=== PATIENT | female | born 1940 | race African-American/Black ===

== ENCOUNTER 2017-10-10 06:07 | Inpatient (IN) | payer OTHER ==
[2017-10-07 09:07] VITALS: BMI 22.3
[2017-10-10] MEDS ORDERED: DEXAMETHASONE SOD PHOSPHATE 4 MG/1 ML VIAL ONE ×2 (07:20→11:51)
[2017-10-10] MEDS ORDERED: ONDANSETRON 4 MG/2 ML VIAL ONE ×2 (07:20→11:51)
[2017-10-10] MEDS ORDERED: LIDOCAINE HCL/PF 2% SDV 5ML VIAL ONE ×2 (07:20→11:51)
[2017-10-10] MEDS ORDERED: VANCOMYCIN 1,000 MG VIAL (RESTRICTED TO ID ONLY) ONE ×2 (07:22→10:17)
[2017-10-10] MEDS ORDERED: THROMBIN (BOVINE) 5,000 UNIT VIAL TP ONE (07:22)
[2017-10-10] MEDS ORDERED: HEPARIN NA (PORCINE) 5,000 UNITS/ML 1ML VIAL ONE ×3 (07:22→07:28)
[2017-10-10] MEDS ORDERED: PROPOFOL 20 ML ONE ×11 (07:23→13:47)
[2017-10-10] MEDS ORDERED: ROCURONIUM BROMIDE 50 MG/5 ML VIAL ONE ×2 (07:23→11:51)
[2017-10-10] MEDS ORDERED: SUCCINYLCHOLINE CHLORIDE 200 MG/10 ML VIAL ONE ×2 (07:24→11:50)
[2017-10-10] MEDS ORDERED: fentaNYL CITRATE 250 MCG/5 ML VIAL ONE ×2 (07:24→09:16)
[2017-10-10] MEDS ORDERED: MIDAZOLAM HCL 2 MG/2 ML SINGLE DOSE VIAL ONE ×3 (07:25→09:20)
[2017-10-10] MEDS ORDERED: PHENYLEPHRINE HCL 10 MG/1 ML SINGLE DOSE VIAL ONE (07:26)
[2017-10-10] MEDS ORDERED: ePHEDrine SULFATE 50 MG/1 ML AMPULE ONE ×3 (07:27→17:37)
[2017-10-10] MEDS ORDERED: SODIUM CHLORIDE 0.9% P/F 10 ML VIAL IJ ONE (07:27)
[2017-10-10] MEDS ORDERED: SEVOFLURANE 250 ML BTL ONE (07:30)
[2017-10-10] MEDS ORDERED: DESFLURANE GAS 240 ML BOTTLE IH ONE (07:31)
[2017-10-10] MEDS ORDERED: oxyCODONE HCL 5 MG TABLET PO PRN ×2 (07:49)
[2017-10-10] MEDS ORDERED: ONDANSETRON 4 MG/2 ML VIAL IVPUSH PRN (07:49)
[2017-10-10] MEDS ORDERED: LACTATED RINGERS SOLUTION 1,000 ML IV SCH (08:00)
[2017-10-10] MEDS ORDERED: ceFAZolin SODIUM 1 GM VIAL IVPB ONE (09:49)
[2017-10-10] MEDS ORDERED: TRANEXAMIC ACID 1000 MG/10 ML VIAL ONE (10:14)
[2017-10-10] MEDS ORDERED: ceFAZolin SODIUM 1 GM VIAL ONE (10:17)
[2017-10-10] MEDS ORDERED: NEOSTIGMINE METHYLSULFATE 0.5 MG/ML - 10 ML MDV ONE (12:12)
[2017-10-10] MEDS ORDERED: KETOROLAC TROMETHAMINE 30 MG/1 ML VIAL ONE (14:31)
[2017-10-10] MEDS ORDERED: SODIUM CHLORIDE 1,000 ML IV SCH (15:15)
[2017-10-10] MEDS ORDERED: DEXTROSE 5%-0.45% SALINE 1,000 ML IV SCH (15:15)
[2017-10-10] MEDS ORDERED: HYDROmorphone *PCA* 6MG/30ML DISP.SYRIN PCA ONE (15:25)
--- NOTE | 2017-10-10 15:37 | HP ---
Addendum entered and electronically signed by Yury Kaur, RESIDENT 10/10 17:14: Spoke to family of patient after completing H&P. Patient's daughter states that patient has been having back pain radiating to her hip for over 2 years. States that she never had any decreased sensation, numbness tingling, or changes to urinary habits/bowel movements. Previous imaging she received showed "squeezing of spinal cord". Patient does not drink, does not smoke, and never has. Reported past medical problems are high blood pressure, high cholesterol, and high blood sugar. The only medications the daughter knew were fosinopril/HCTZ, pravastatin, and gabapentin. Daughter denies any allergies of the patient. Original Note: CHIEF COMPLAINT: s/p spinal fusion PCP: Dr. Krystle Whiting HISTORY OF PRESENT ILLNESS: 77 year old female with a past medical history of arthropathy, BPPV, lumbar disc herniation, constipation, HLD, HTN, hemorrhoids, anemia, CKD, cholelithiasis, polycystic kidneys, hypercalcemia, came to the hospital for a T12-S1 spinal fusion surgery performed by Dr. Dajuan Medrano. Patient is s/p surgery, and is not awake to obtain full history. Patient has no previous visits to this hospital. During the surgery, patient received 3500cc fluids and had EBL of 1100. Patient made 400cc urine during the surgery. Recent Travel: unknown at this time PAST MEDICAL HISTORY: arthropathy, BPPV, lumbar disc herniation, constipation, HLD, HTN, hemorrhoids, anemia, CKD, cholelithiasis, polycystic kidneys, hypercalcemia PAST SURGICAL HISTORY: knee arthroscopy Social History: Smoking: unknown at this time Alcohol: unknown at this time Drugs: unknown at this time Family History: Allergies No Known Drug Allergies Allergy (Verified 10/10/17 06:58) HOME MEDICATIONS: Home Medications Medication Instructions Recorded Acetaminophen [Tylenol] 650 mg PO PRN PRN 10/07/17 Fosinopril/Hydrochlorothiazide 1 each PO DAILY 10/07/17 [Fosinopril-Hctz 10-12.5 mg Tab] Gabapentin 600 mg PO TID 10/07/17 Pravastatin Sodium [Pravachol (Nf)] 40 mg PO HS 10/07/17 REVIEW OF SYSTEMS - UNABLE TO ASSESS DUE TO MENTAL STATUS CONSTITUTIONAL: Absent: fever, chills, diaphoresis, generalized weakness, malaise, loss of appetite, weight change HEENT: Absent: rhinorrhea, nasal congestion, throat pain, throat swelling, difficulty swallowing, mouth swelling, ear pain, eye pain, visual changes CARDIOVASCULAR: Absent: chest pain, syncope, palpitations, irregular heart rate, lightheadedness , peripheral edema RESPIRATORY: Absent: cough, shortness of breath, dyspnea with exertion, orthopnea, wheezing, stridor, hemoptysis GASTROINTESTINAL: Absent: abdominal pain, abdominal distension, nausea, vomiting, diarrhea, constipation, melena, hematochezia GENITOURINARY: Absent: dysuria, frequency, urgency, hesitancy, hematuria, flank pain, genital pain MUSCULOSKELETAL: Absent: myalgia, arthralgia, joint swelling, back pain, neck pain SKIN: Absent: rash, itching, pallor HEMATOLOGIC/IMMUNOLOGIC: Absent: easy bleeding, easy bruising, lymphadenopathy, frequent infections ENDOCRINE: Absent: unexplained weight gain, unexplained weight loss, heat intolerance, cold intolerance NEUROLOGIC: Absent: headache, focal weakness or paresthesias, dizziness, unsteady gait, seizure, mental status changes, bladder or bowel incontinence PSYCHIATRIC: Absent: anxiety, depression, suicidal or homicidal ideation, hallucinations. PHYSICAL EXAMINATION Vital Signs - 24 hr 10/10/17 10/10/17 06:55 06:56 Temperature 99.0 F Pulse Rate 92 H Respiratory 18 Rate Blood Pressure 139/92 O2 Sat by Pulse 98 Oximetry (%) GENERAL: Not awake, alert, or oriented HEAD: Normal with no signs of trauma. EYES: Pupils equal, round, minimally responsive to light, unable to assess eye movements ENT: moist membranes NECK: No JVD LUNGS: Coarse breath sounds bilaterally, good airflow HEART: RRR with some spurts of tachycardia to 95-100bpm, no murmurs appreciated ABDOMEN: soft, nontender, BS present MUSCULOSKELETAL: unable to assess UPPER EXTREMITIES: 2+ pulses, No peripheral edema. LOWER EXTREMITIES: 2+ pulses, warm, well-perfused. No peripheral edema. NEUROLOGICAL: reflexes 2/5 upper extremities, 0/5 lower extremities : Beltran in place collecting clear, yellow urine SKIN: Large dressing applied to the mid-back, non-bloody, drain in place producing minimal serosanguinous drainage Laboratory Results - last 24 hr 10/10/17 10/10/17 07:10 07:30 Blood Type A POSITIVE A POSITIVE Antibody Screen Negative Home Medication List Medication Instructions Recorded Confirmed Type Acetaminophen [Tylenol] 650 mg PO PRN PRN 10/07/17 10/07/17 History Fosinopril/Hydrochlorothiazide 1 each PO DAILY 10/07/17 10/10/17 History [Fosinopril-Hctz 10-12.5 mg Tab] Gabapentin 600 mg PO TID 10/07/17 10/10/17 History Pravastatin Sodium [Pravachol (Nf)] 40 mg PO HS 10/07/17 10/10/17 History Active Medications Generic Name Dose Route Start Last Admin Trade Name Freq PRN Reason Stop Dose Admin Acetaminophen 1,000 mg 10/10/17 16:03 Ofirmev Injection - IVPB 10/10/17 16:04 ONCE ONE Atorvastatin Calcium 10 mg 10/10/17 22:00 Lipitor - PO HS [facility] Chlorhexidine Gluconate 1 applic 10/10/17 22:00 Hibiclens For Decolonization - TP [facility] Chlorhexidine Gluconate 1 applic 10/10/17 22:00 Hibiclens For Decolonization - TP [facility] Fentanyl 50 mcg 10/10/17 07:49 Sublimaze Injection - IVPUSH [id number] PRN PAIN-PACU ORDER X 4 DOSES ONLY Gabapentin 600 mg 10/10/17 22:00 Neurontin - PO TID ERICK Hydrochlorothiazide 12.5 mg 10/11/17 10:00 Hctz - PO DAILY ERICK Hydromorphone HCl 6 mg 10/10/17 15:15 Dilaudid Cell Reliner - PHOTO MASK INSPECTOR 10/17/17 15:06 PHOTO MASK INSPECTOR ERICK Protocol Lactated Ringer's 1,000 mls @ 75 mls/hr 10/10/17 08:00 Lactated Ringers Solution IV ASDIR [facility] Vancomycin HCl 1,000 mg/ 250 mls @ 166.667 mls/hr 10/10/17 22:00 Dextrose IVPB 10/10/17 23:29 ONCE ONE Protocol Cefazolin Sodium 1 gm in 50 mls @ 100 mls/hr 10/10/17 23:00 Ancef 1 Gm Premixed Ivpb - IVPB 10/11/17 02:29 Q8H-IV ERICK Sodium Chloride 1,000 mls @ 100 mls/hr 10/10/17 15:15 Normal Saline - IV ASDIR ERICK Lisinopril 10 mg 10/11/17 10:00 Prinivil PO DAILY ERICK Mupirocin 1 applic 10/10/17 22:00 Bactroban Ointment (For Decolonization) - NS 10/15/17 21:59 BID ERICK Mupirocin 1 applic 10/10/17 22:00 Bactroban Ointment (For Decolonization) - NS 10/15/17 21:59 BID ERICK Ondansetron HCl 4 mg 10/10/17 07:49 Zofran Injection IVPUSH Q6H PRN NAUSEA AND/OR VOMITING Oxycodone HCl 10 mg 10/10/17 07:49 Roxicodone - PO 10/11/17 07:48 Q4H PRN PAIN LEVEL 6-10 Oxycodone HCl 5 mg 10/10/17 07:49 Roxicodone - PO 10/11/17 07:48 Q4H PRN PAIN LEVEL 1-5 ASSESSMENT/PLAN: 77 year old female with a pmh of arthropathy, BPPV, lumbar disc herniation, constipation, HLD, HTN, hemorrhoids, anemia, CKD, cholelithiasis, polycystic kidneys, hypercalcemia is admitted to the hospital after fusion of T12-S1 vertebrae #Spinal fusion T12-S1: POD1 -ICU admission -neurochecks Q2h -pt bolused with 2 500cc NS -continue normal saline @ 100cc/hr -NPO for now -Dr. Benavides -monitor drainage output -pain control -encourage incentive spirometry #Hypertension: currently normal BP, but likely hypotensive for patient -hold BP meds for now - can give when BP increases -pt on HCTZ 12.5 and Fosinopril at home (can sub with lisinopril 10) #Hyperlipidemia: stable -continue atorvastatin 10 HS if able to swallow #FEN -continue fluids @ 100cc/hr NS -replete electrolytes in AM -NPO for now #Prophylaxis -SCDs #Disposition -Admit to ICU for close neuro and vitals monitoring Visit type - Emergency Visit Emergency Visit: No - New Patient This patient is new to me today: Yes Date on this admission: 10/10/17 - Critical Care Critical Care patient: Yes Total Critical Care Time (in minutes): 35 Critical Care Statement: The care of this patient involved high complexity decision making to prevent further life threatening deterioration of the patient 's condition and/or to evaluate & treat vital organ system(s) failure or risk of failure. Hospitalist Screening - Colonoscopy Questionnaire Colonoscopy Questionnaire: Colonoscopy Questionnaire - Patient: 50 - 75 years old and never had a screening colonoscopy: Unknown History of colon or rectal polyps, or CA: Unknown History of IBD, Crohn's disease or UC: Unknown History of abdominal radiation therapy as a child: Unknown - Relative: 1 with colon or rectal CA, or polyps at age 60 or younger: Unknown Colon or rectal CA diagnosed at age 45 or younger: Unknown Multiple relatives with colon or rectal CA: Unknown - Outcome: Screening Result: Negative Screen
--- NOTE | 2017-10-10 15:42 | PN ---
Teaching Attending Note Name of Resident: Yury Kaur ATTENDING PHYSICIAN STATEMENT I saw and evaluated the patient. I reviewed the resident's note and discussed the case with the resident. I agree with the resident's findings and plan as documented. CC: s/p decompression and fusion T12-S1. HPI: unable to obtain hx form pt as she is still under anesthesia effect. Mrs. Guillen is a 77 y/o lady with h/o HTN, CKD ( per pre-op H&P) , neuropathy, polycystic kidneys, constipation , hemorrhoids, herniated disks, and other medical problems who presented this am for decompresion of T12-S1. during surgery she had 1100 cc blood loss, received IVF and blood . after transfer to Recovery she became hypotensive and received 2 boluses of 500 cc. reviewing her pre-op labs , her HB was 13 and Cr 0.7. pre-op EKG with NSR, no ST or TW changes, but poor R progression OBJECTIVE: BP : 100/50 . HR 80s . Sat 97 %. sleeping , snoring, NC on . no facial droop. MMM. round equal pupils, sluggish reaction to light . CV: RRR, no MRG , no JVD Lungs: CTAB Abd: absent BS, ND, NT. Ext: no edema or erythema , 2+ Dp , 2+ RP. MS: surgical dressing on T andL spine , with an empty drain Neuro: limited exam. pupils are round , equal , with sluggish reaction to light. no facial droop. reflexes 2+ biceps , 1+ knee jerk b/l . no foot drop. ASSESSMENT AND PLAN: Mrs. Guillen is a 77 y/o lady with h/o HTN, CKD , neuropathy,polycystic kidneys , constipation , hemorrhoids, herniated disks, and other medical problems who presented for decompresion of T12-S1. 1- S/P decompression and fusion of T12-S1. - ICU admission - MARYAM drain management per sx - pain control with dilaudid SYSTEM SALES CONSULTANT ( 0.2 mg q 6 min ) , and oxycodone - No heparin products for now , until cleared by sx - Evaluate LE neuro exam when awake . - Abx per surgery 2- Hypotension : likely due to blood loss during procedure and anesthesia . BP improved now after boluses - hold anti-hypertensive meds - IVF. - check HB stat . transfuse as needed 3- Acute blood loss during sx of 1100 cc - check stat HB - transfuse as needed - repeat HB in 6 hrs 4- H/o CKD ( per pre-op H&P) : pre-op cr 0.7. - will check Cr tomorrow in light of hypotension 5- DVT px : Scds for now
--- NOTE | 2017-10-10 16:10 | HP ---
CHIEF COMPLAINT: post op day 0 PCP: Dr Yury Hernandez [phone] ext [phone] HISTORY OF PRESENT ILLNESS: This is a 77 yo F with PMH of chronic back pain, pacemaker, HTN, HLD, CKD ( normal creat pre op labs 15/0.7), PCKD (PCP states is just a few cysts), hemorrhoids and BPVertigo, who presents for spinal surgery, currently POD0 s/p L1-S1 Posterior Lumbar interbody fusion. Per surgical PA, surgery was uncomplicated and patient is to be kept off a/c. Patient is still unconscious from anesthesia. Recent Travel: none noted PAST MEDICAL HISTORY: as above PAST SURGICAL HISTORY: R knee arthroscopy Social History: lives with spouse Smoking: never Alcohol: social Drugs: never Family History: unknown Allergies No Known Drug Allergies Allergy (Verified 10/10/17 06:58) HOME MEDICATIONS: Home Medications Medication Instructions Recorded Acetaminophen [Tylenol] 650 mg PO PRN PRN 10/07/17 Fosinopril/Hydrochlorothiazide 1 each PO DAILY 10/07/17 [Fosinopril-Hctz 10-12.5 mg Tab] Gabapentin 600 mg PO TID 10/07/17 Pravastatin Sodium [Pravachol (Nf)] 40 mg PO HS 10/07/17 REVIEW OF SYSTEMS unable to obtain PHYSICAL EXAMINATION Vital Signs - 24 hr 10/10/17 10/10/17 10/10/17 06:55 06:56 14:57 Temperature 99.0 F 98.3 F Pulse Rate 92 H 73 Respiratory 18 18 Rate Blood Pressure 139/92 112/73 O2 Sat by Pulse 98 99 Oximetry (%) 10/10/17 10/10/17 10/10/17 15:10 15:25 15:40 Temperature Pulse Rate 92 H 90 92 H Respiratory 20 18 18 Rate Blood Pressure 98/52 100/60 91/58 O2 Sat by Pulse 100 100 100 Oximetry (%) 10/10/17 15:55 Temperature Pulse Rate 90 Respiratory 20 Rate Blood Pressure 94/57 O2 Sat by Pulse 100 Oximetry (%) GENERAL: asleep HEAD: Normal with no signs of trauma. EYES: Pupils equal, round and reactive to light, sclera anicteric, conjunctiva clear. EARS, NOSE, THROAT: Moist mucous membranes. NECK: supple without lymphadenopathy, JVD, or masses. LUNGS: Breath sounds equal, clear to auscultation bilaterally. HEART: Regular rate and rhythm, normal S1 and S2 grade 2 systolic murmur best heard at apex ABDOMEN: Soft, not distended, globally reduced bowel sounds, no masses. MUSCULOSKELETAL: No bony deformities UPPER EXTREMITIES: 2+ pulses, warm, well-perfused. No peripheral edema. LOWER EXTREMITIES: 2+ pulses, warm, well-perfused. No peripheral edema. NEUROLOGICAL: unable to assess PSYCHIATRIC: unable to assess SKIN: Warm, dry Laboratory Results - last 24 hr 10/10/17 10/10/17 07:10 07:30 Blood Type A POSITIVE A POSITIVE Antibody Screen Negative ASSESSMENT/PLAN: This is a 77 yo F with PMH of chronic back pain, pacemaker, HTN, HLD, CKD ( normal creat pre op labs 15/0.7), PCKD (PCP states is just a few cysts), hemorrhoids and BPVertigo, who presents for spinal surgery POD0 s/p L1-S1 Posterior Lumbar interbody fusion. -ICU monitoring -Neuro checks q2 h -strict I /O, MARYAM output -oxicodone 10, 5 PRN for pain -resume gabapentin -cefazolin, vanco x 2 doses -zofran prn nausea -NS @ 100 -hold all a/c -f/u post op labs HTN -hold lisinopril 20 as BP low post op HLD -pravastatin 40 hs hemorrhoids -resume proctozone cream CKD -creat 0.7 pre op, f/u bmp Diet NPO, advanceper surgery SCD's, anticipate feeding soon Dispo: ICU Problem List - Problem (1) HTN (hypertension) Code(s): I10 - ESSENTIAL (PRIMARY) HYPERTENSION (2) HLD (hyperlipidemia) Code(s): E78.5 - HYPERLIPIDEMIA, UNSPECIFIED (3) Back pain Code(s): M54.9 - DORSALGIA, UNSPECIFIED (4) Hemorrhoid Code(s): K64.9 - UNSPECIFIED HEMORRHOIDS (5) CKD (chronic kidney disease) Code(s): N18.9 - CHRONIC KIDNEY DISEASE, UNSPECIFIED (6) Benign positional vertigo Code(s): H81.10 - BENIGN PAROXYSMAL VERTIGO, UNSPECIFIED EAR Visit type - Emergency Visit Emergency Visit: No - New Patient This patient is new to me today: Yes Date on this admission: 10/10/17 - Critical Care Critical Care patient: Yes Total Critical Care Time (in minutes): 35 Critical Care Statement: The care of this patient involved high complexity decision making to prevent further life threatening deterioration of the patient 's condition and/or to evaluate & treat vital organ system(s) failure or risk of failure.
[2017-10-10 16:15] LABS: BASO % 0.3 % (0-2.0); HEMATOCRIT 31.9 % (32.4-45.2); HEMOGLOBIN 10.4 GM/dL (10.7-15.3); LYMPH % 6.6 % (8-40); MCHC 32.5 g/dl (32.0-36.0); MONO % 1.4 % (3.8-10.2); NEUT % 91.7 % (42.8-82.8); PLATELET COUNT 152 K/MM3 (134-434); RBC 3.58 M/mm3 (3.60-5.2); RDW 15.7 % (11.6-15.6); WHITE BLOOD COUNT 10.4 K/mm3 (4.0-10.0)
[2017-10-10] MEDS ORDERED: diazePAM 2 MG TABLET PO PRN (16:23)
--- NOTE | 2017-10-10 16:28 | OP ---
Operative Note - Note: Operative Date: 10/10/17 Pre-Operative Diagnosis: spinal stenosis Operation: T12-S1 posterior decompression/laminecotmy with interbody fusion L4/ L5 and L5/S1 Surgeon: Dajuan Medrano Cleaner Laboratory Equipment: Judy Ray Anesthesiologist/CHAIN PULLER: Karan Dobbs Anesthesia: General Estimated Blood Loss (mls): 1,100 Drains, Volume Out (mls): 400 (ayoub) Blood Volume Replaced (mls): 450 (cell saver) Fluid Volume Replaced (mls): 3,500 Operative Report Dictated: Yes
[2017-10-10] MEDS: HYDROmorphone *PCA* 6MG/30ML DISP.SYRIN PCA SCH (16:35)
[2017-10-10 16:49] LABS: ANION GAP 9 (8-16); BLOOD UREA NITROGEN 17 mg/dL (7-18); CALCIUM 7.3 mg/dL (8.5-10.1); CHLORIDE 108 mmol/L (98-107); CO2 26 mmol/L (21-32); CREATININE 0.6 mg/dL (0.55-1.02); GLUCOSE,RANDOM 192 mg/dL (74-106); POTASSIUM 3.2 mmol/L (3.5-5.1); SODIUM 143 mmol/L (136-145)
[2017-10-10] MEDS ORDERED: ACETAMINOPHEN 1000 MG/100 ML VIAL (NON FORMULARY) IVPB ONE (18:00)
[2017-10-10] MEDS ORDERED: POTASSIUM CHLORIDE ORAL LIQUID 20 MEQ/15 ML PO ONE (18:00)
--- NOTE | 2017-10-10 21:24 | CONSULT ---
Consult Consult Specialty:: Pulm/CCM Reason for Consultation:: Herniated disc s/p T12-S1 spinal fusion - History of Present Illness Chief Complaint: back surgical site discomfort History of Present Illness: 77 yo F with PMH of chronic back pain, HTN,HLD, CKD, Polycystic kidney disease, hemorrhoids and Vertigo who is admitted with spinal stenosis and now transferred to ICU s/p T12-S1 posterior decompression, laminectomy with fusion and cage placement. In the OR EBL 1100cc, $50 cc returned via cell saver, IVF 3500cc, UOP 400cc. In ICU pt rec'd lethargic , oriented x3 and appropiate and receiving 1U PRBC. BP 121/62, HR 100, O2 sat 100% on 3L NC O2. Mid back incision dry and intact. hemovac x1 with small amount bloody fluid. On exam JORGE with no c/o numbness and tingling in lower extremities. Dilaudid FUSE CUP EXPANDER in place. - History Source History Provided By: Medical Record Limitations to Obtaining History: Other (Lethargy) - Past Medical History Cardio/Vascular: Yes: HTN, Hyperlipdemia Renal/: Yes: Other (Polycystic kidney disease) Musculoskeletal: Yes: Chronic low back pain - Alcohol/Substance Use Hx Alcohol Use: Yes (SOCIALLY) - Smoking History Smoking history: Never smoked Have you smoked in the past 12 months: No Home Medications - Allergies Allergies/Adverse Reactions: Allergies Allergy/AdvReac Type Severity Reaction Status Date / Time No Known Drug Allergies Allergy Verified 10/10/17 06:58 - Home Medications Home Medications: Ambulatory Orders Acetaminophen [Tylenol] 650 mg PO PRN PRN 10/07/17 Gabapentin 600 mg PO TID 10/07/17 Pravastatin Sodium [Pravachol (Nf)] 40 mg PO HS 10/07/17 Hydrocortisone [Proctozone-Hc] 30 gm RC DAILY 10/10/17 Lisinopril 20 mg PO DAILY 10/10/17 Family Disease History - Family Disease History Family History: Unable to Obtain Review of Systems Unable to obtain ROS, reason: Lethargic Physical Exam Vital Signs: Vital Signs Temperature 98.3 F 10/10/17 14:57 Pulse Rate 108 H 10/10/17 18:55 Respiratory Rate 18 10/10/17 18:55 Blood Pressure 90/43 02/26/18 18:55 O2 Sat by Pulse Oximetry (%) 100 10/10/17 18:55 Constitutional: Yes: Well Nourished, No Distress, Calm Eyes: Yes: Conjunctiva Clear HENT: Yes: Atraumatic, Normocephalic Neck: Yes: Trachea Midline Cardiovascular: Yes: Tachycardia, S1, S2 Respiratory: Yes: CTA Bilaterally, On Nasal O2 Gastrointestinal: Yes: Normal Bowel Sounds, Soft Renal/: Yes: Beltran Present Extremities: Yes: WNL, Cool Edema: No Peripheral Pulses WNL: Yes Wound/Incision: Yes: Dressing Dry and Intact, Other (Hemovac with bloody drainage) ...Motor Strength: WNL Labs: CBC, BMP 10/10/17 15:00 10/10/17 15:00 CBC,CMP WBC 10.4 K/mm3 (4.0-10.0) H 10/10/17 15:00 RBC 3.58 M/mm3 (3.60-5.2) L 10/10/17 15:00 Hgb 10.4 GM/dL (10.7-15.3) L 10/10/17 15:00 Hct 31.9 % (32.4-45.2) L 10/10/17 15:00 MCV 89.0 fl (80-96) 10/10/17 15:00 MCH 29.0 pg (25.7-33.7) 10/10/17 15:00 MCHC 32.5 g/dl (32.0-36.0) 10/10/17 15:00 RDW 15.7 % (11.6-15.6) H 10/10/17 15:00 Plt Count 152 K/MM3 (134-434) 10/10/17 15:00 MPV 10.0 fl (7.5-11.1) 10/10/17 15:00 Neutrophils % 91.7 % (42.8-82.8) H 10/10/17 15:00 Lymphocytes % 6.6 % (8-40) L 10/10/17 15:00 Monocytes % 1.4 % (3.8-10.2) L 10/10/17 15:00 Eosinophils % 0.0 % (0-4.5) 10/10/17 15:00 Basophils % 0.3 % (0-2.0) 10/10/17 15:00 Sodium 143 mmol/L (136-145) 10/10/17 15:00 Potassium 3.2 mmol/L (3.5-5.1) L 10/10/17 15:00 Chloride 108 mmol/L (98-107) H 10/10/17 15:00 Carbon Dioxide 26 mmol/L (21-32) 10/10/17 15:00 Anion Gap 9 (8-16) 10/10/17 15:00 BUN 17 mg/dL (7-18) 10/10/17 15:00 Creatinine 0.6 mg/dL (0.55-1.02) 10/10/17 15:00 Random Glucose 192 mg/dL (74-106) H 10/10/17 15:00 Calcium 7.3 mg/dL (8.5-10.1) L 10/10/17 15:00 Current Medications Acetaminophen (Tylenol -) 650 mg PO Q6H ERICK Stop: 10/12/17 04:01 Atorvastatin Calcium (Lipitor -) 10 mg PO HS ERICK Chlorhexidine Gluconate (Hibiclens For Decolonization -) 1 applic TP HS [facility] Diazepam (Valium -) 2 mg PO Q8H PRN PRN Reason: ANXIETY Docusate Sodium (Colace -) 100 mg PO BID ERICK Fentanyl (Sublimaze Injection -) 50 mcg IVPUSH [id number] PRN PRN Reason: PAIN-PACU ORDER X 4 DOSES ONLY Gabapentin (Neurontin -) 600 mg PO TID ERICK Hydromorphone HCl (Dilaudid Pe Electrical Engineer -) 6 mg FUSE CUP EXPANDER FUSE CUP EXPANDER ERICK PRN Reason: Protocol Stop: 10/17/17 15:06 Last Admin: 10/10/17 16:35 Dose: 6 mg Lactated Ringer's (Lactated Ringers Solution) 1,000 mls @ 75 mls/hr IV ASDIR ERICK Vancomycin HCl 1,000 mg/ (Dextrose) 250 mls @ 166.667 mls/hr IVPB ONCE ONE PRN Reason: Protocol Stop: 10/10/17 23:29 Cefazolin Sodium (Ancef 1 Gm Premixed Ivpb -) 1 gm in 50 mls @ 100 mls/hr IVPB Q8H-IV ERICK Stop: 10/11/17 02:29 Sodium Chloride (Normal Saline -) 1,000 mls @ 100 mls/hr IV ASDIR ERICK Last Admin: 10/10/17 16:35 Dose: 1,000 mls Mupirocin (Bactroban Ointment (For Decolonization) -) 1 applic NS BID [facility] Stop: 10/15/17 21:59 Ondansetron HCl (Zofran Injection) 4 mg IVPUSH Q6H PRN PRN Reason: NAUSEA AND/OR VOMITING Oxycodone HCl (Roxicodone -) 10 mg PO Q4H PRN PRN Reason: PAIN LEVEL 6-10 Stop: 10/11/17 07:48 Oxycodone HCl (Roxicodone -) 5 mg PO Q4H PRN PRN Reason: PAIN LEVEL 1-5 Stop: 10/11/17 07:48 Vital Signs Period Temp Pulse Resp BP Sys/Mayer Pulse Ox Last 24 Hr 98.3 F-99.2 F 73-123 16-20 65-153/38-92 98-100 Problem List - Problems (1) Spinal stenosis of lumbar region Code(s): M48.061 - SPINAL STENOSIS, LUMBAR REGION WITHOUT NEUROGENIC NAZ (2) H/O spinal fusion Code(s): Z98.1 - ARTHRODESIS STATUS (3) Back pain Code(s): M54.9 - DORSALGIA, UNSPECIFIED (4) Benign positional vertigo Code(s): H81.10 - BENIGN PAROXYSMAL VERTIGO, UNSPECIFIED EAR (5) CKD (chronic kidney disease) Code(s): N18.9 - CHRONIC KIDNEY DISEASE, UNSPECIFIED (6) HLD (hyperlipidemia) Code(s): E78.5 - HYPERLIPIDEMIA, UNSPECIFIED (7) HTN (hypertension) Code(s): I10 - ESSENTIAL (PRIMARY) HYPERTENSION (8) Hemorrhoid Code(s): K64.9 - UNSPECIFIED HEMORRHOIDS Assessment/Plan 77 yo F with PMH of chronic back pain, HTN, pacemaker,HLD, CKD, Polycystic kidney disease, hemorrhoids and Vertigo who is admitted with spinal stenosis and now transferred to ICU s/p T12-S1 posterior decompression, laminectomy with fusion and cage placement. Large EBL 1,100cc, cellsaver 450cc. Plan: -O2 support for O2 sat>92% -Monitor back dressing for drainage. -Monitor hemovac output -Continue empiric antibiotic coverage with Kefzol and vanco -CBC post PRBC; Transfuse for Hgb<8 -Neuro checks q2 -FUSE CUP EXPANDER for pain management -Hold antihypertensives for now -Advance diet when more awake -Monitor UOP and BMP -Replete electrolytes -DVT prophylaxis with SCDs Michelle Burks, PABLO CC time 35mins
[2017-10-10] MEDS ORDERED: MUPIROCIN 2% TOPICAL OINTMENT FOR DECOLONIZATION NS SCH (22:00)
[2017-10-10] MEDS ORDERED: VANCOMYCIN 1,000 MG in DEXTROSE 5%-WATER - 250 ML IVPB ONE (22:00)
[2017-10-10] MEDS ORDERED: CHLORHEXIDINE GLUCONATE 4% CLEANSER FOR DECOLONIZATION TP SCH (22:00)
[2017-10-10] MEDS ORDERED: POTASSIUM CHLORIDE 20 MEQ PREMIX IVPB 100 ML IVPB ONE (22:17)
[2017-10-10] MEDS ORDERED: PT OWN MED DRAWER 7, Y5N ONE (22:23)
[2017-10-10] MEDS: CEFAZOLIN 1 GM PUSH 1 GM/10 ML DISP.SYRIN IVPUSH SCH (22:39)
[2017-10-10] MEDS: MUPIROCIN 2% TOPICAL OINTMENT FOR DECOLONIZATION NS SCH (22:40)
[2017-10-10] MEDS: CHLORHEXIDINE GLUCONATE 4% CLEANSER FOR DECOLONIZATION TP SCH (22:40)
[2017-10-10] MEDS: ATORVASTATIN CA 10 MG TABLET (FP) PO SCH (22:42)
[2017-10-10] MEDS: GABAPENTIN 300 MG CAPSULE (FP) PO SCH (22:42)
[2017-10-10] MEDS: ACETAMINOPHEN 325 MG TABLET (FP) PO SCH (22:47)
[2017-10-10 23:38] LABS: HEMATOCRIT 30.2 % (32.4-45.2); HEMOGLOBIN 9.7 GM/dL (10.7-15.3); MCH 29.3 pg (25.7-33.7); MCHC 32.2 g/dl (32.0-36.0); MEAN CELL VOLUME 91.1 fl (80-96); RBC 3.31 M/mm3 (3.60-5.2)
[2017-10-11 00:02] LABS: PLATELET COUNT 114 K/MM3 (134-434)
[2017-10-11] MEDS: ACETAMINOPHEN 325 MG TABLET (FP) PO SCH ×4 (06:00→21:01)
[2017-10-11 06:14] LABS: BASO % 0.1 % (0-2.0); HEMATOCRIT 23.8 % (32.4-45.2); HEMOGLOBIN 7.6 GM/dL (10.7-15.3); LYMPH % 6.4 % (8-40); MCH 29.2 pg (25.7-33.7); MCHC 31.8 g/dl (32.0-36.0); MEAN CELL VOLUME 91.9 fl (80-96); MEAN PLT VOLUME 10.5 fl (7.5-11.1); MONO % 6.8 % (3.8-10.2); NEUT % 86.7 % (42.8-82.8); PLATELET COUNT 100 K/MM3 (134-434); RBC 2.59 M/mm3 (3.60-5.2); RDW 15.5 % (11.6-15.6); WHITE BLOOD COUNT 11.4 K/mm3 (4.0-10.0)
[2017-10-11] MEDS ORDERED: LACTATED RINGERS SOLUTION 1,000 ML IV SCH (06:17)
[2017-10-11] MEDS: GABAPENTIN 300 MG CAPSULE (FP) PO SCH ×3 (06:31→21:01)
[2017-10-11] MEDS: CEFAZOLIN 1 GM PUSH 1 GM/10 ML DISP.SYRIN IVPUSH SCH (06:32)
--- NOTE | 2017-10-11 07:24 | PN ---
Progress Note, Physician History of Present Illness: Yesterday: Pt had T12-S1 spinal fusion surgery. Estimated blood loss 1,100. Drain placed, draining 140cc serosang fluid. Today: Pain is well controlled. No flatus, no bm. No CP, no SOB. Already obtained 1uPRBC overnight. H/H still low. Will transfuse 2 more units. Blood pressures are low, gave 500cc bolus. - Objective Vital Signs: Vital Signs Period Temp Pulse Resp BP Sys/Mayer Pulse Ox Last 24 Hr 98.2 F-99.2 F 73-123 16-21 65-153/38-90 99-100 Additional Findings/Remarks: GEN: AAOx3, NAD, smiling and talking with examiner HEENT: [place] REECE CV: S1, S2, 3/6 systolic murmur LUNG: CTABL ABD: Soft, NT, ND MSK: No edema, no erythema Assessment/Plan 77yo F with PMHx of HTN and spinal stenosis who is POD1 from T12-S1 spinal fusion surgery by Dr Benavides. Ortho: * # T12-S1 Spinal Fusion - POD1, pain is well controlled. Continue NPO for now. PT ordered. Continue incentive spirometry CV: * # Hypotension - Has hx of HTN, not on home meds due to relative hypotension. Was on 42cc/hr, increased to 100cc/hr. Gave extra 500cc bolus this AM. Should improve with 2uPRBC. Will bolus as needed. * # Anemia - 2/2 acute blood loss. EBL 1,100. Asymptomatic. Given 1uPRBC, but H/ H still low. Will two additional units PRBC. Repeat CBC post transfusion * # HLD - Continue statin FEN/PPx: NS @ 100cc/hr, NPO, SCDs Dispo: Continue ICU mgmt for now. Aby Vila MD PGY1 ICU
[2017-10-11] MEDS ORDERED: SODIUM CHLORIDE 1,000 ML IV SCH (07:27)
[2017-10-11] MEDS: SODIUM CHLORIDE 1,000 ML IV SCH (07:30)
[2017-10-11 08:14] LABS: ANION GAP 6 (8-16); BLOOD UREA NITROGEN 16 mg/dL (7-18); CALCIUM 7.2 mg/dL (8.5-10.1); CHLORIDE 109 mmol/L (98-107); CO2 28 mmol/L (21-32); CREATININE 0.7 mg/dL (0.55-1.02); GLUCOSE,RANDOM 132 mg/dL (74-106); POTASSIUM 4.4 mmol/L (3.5-5.1); SODIUM 143 mmol/L (136-145)
[2017-10-11 08:21] LABS: MAGNESIUM 1.5 mg/dL (1.8-2.4); PHOSPHOROUS 2.8 mg/dL (2.5-4.9)
[2017-10-11] MEDS ORDERED: SODIUM CHLORIDE 500 ML IV STA (09:45)
[2017-10-11] MEDS ORDERED: LISINOPRIL 10 MG TABLET (FP) PO SCH (10:00)
[2017-10-11] MEDS ORDERED: HYDROCHLOROTHIAZIDE 12.5 MG CAPSULE (FP) PO SCH (10:00)
[2017-10-11] MEDS: DOCUSATE SODIUM 100 MG CAPSULE (FP) PO SCH ×2 (10:19→21:01)
[2017-10-11] MEDS: MUPIROCIN 2% TOPICAL OINTMENT FOR DECOLONIZATION NS SCH ×2 (10:19→21:01)
--- NOTE | 2017-10-11 10:21 | PN ---
Progress Note (short form) - Note Progress Note: POD#1 PT without any complaints of CP/SOB/nausea or abd pain. No headaches or dizziness. She has mild pain at her incision sites. No pain in her extremities or numbness/tingling. Vital Signs Period Temp Pulse Resp BP Sys/Mayer Pulse Ox Last 24 Hr 98.2 F-99.5 F 73-123 16-21 65-153/38-90 99-100 MARYAM-140ml dark brown blood in tubing(chamber emptied this am) Ayoub-400ml clear/yellow urine GEN: A&0x3, NAD CV: RRR Lungs: CTA b/l ABD: soft, non-distended, non-tender Back: dressing c/d/i without any any swellling LE: no calf tenderness or swelling noted b/l. SCDs in place and working. 5/5 dorsi/plantar flexion, EHL 5/5. Straight leg raise 5/5 b/l. CBC, BMP 10/11/17 05:52 10/11/17 07:32 A/p: 77 yo female T12-S1 posterior decompression/laminecotmy with interbody fusion L4/L5 and L5/S1 PT with acute blood loss and being transfused post-operatively. s/p 1 unit yesterday and cell saver. Now with drop in HCT, slight hypotension without clinical symptoms D/w Dr. Medrano, pt to recevied 2 units of PRBC today D/w ICU team to repeat HCT at noon between units Will continue ayoub catheter to monitor uop/fluid status Bed rest for now and npo until after PRBC and recheck HCT Pain management with IV dialudid and monitor for hypotension, getting 500ml bolus now
--- NOTE | 2017-10-11 10:30 | PN ---
Progress Note, Physician Chief Complaint: day #1 s/p L1-5 PLIF - Current Medication List Current Medications: Active Medications Acetaminophen (Tylenol -) 650 mg PO Q6H [facility] Stop: 10/12/17 04:01 Last Admin: 10/11/17 10:06 Dose: 650 mg Atorvastatin Calcium (Lipitor -) 10 mg PO HS [facility] Last Admin: 10/10/17 22:42 Dose: 10 mg Chlorhexidine Gluconate (Hibiclens For Decolonization -) 1 applic TP HS [facility] Last Admin: 10/10/17 22:40 Dose: 1 applic Diazepam (Valium -) 2 mg PO Q8H PRN PRN Reason: ANXIETY Docusate Sodium (Colace -) 100 mg PO BID [facility] Last Admin: 10/11/17 10:19 Dose: 100 mg Gabapentin (Neurontin -) 600 mg PO TID [facility] Last Admin: 10/11/17 06:31 Dose: 600 mg Hydromorphone HCl (Dilaudid Immunochemist -) 6 mg YARD WAREHOUSE WORKER YARD WAREHOUSE WORKER ERICK PRN Reason: Protocol Stop: 10/17/17 15:06 Last Admin: 10/10/17 16:35 Dose: 6 mg Sodium Chloride (Normal Saline -) 1,000 mls @ 100 mls/hr IV ASDIR ERICK Last Admin: 10/11/17 07:30 Dose: 100 mls/hr Sodium Chloride (Normal Saline -) 500 mls @ 500 mls/hr IV ASDIR STA Stop: 10/11/17 10:44 Last Admin: 10/11/17 09:45 Dose: 500 mls/hr Mupirocin (Bactroban Ointment (For Decolonization) -) 1 applic NS BID ERICK Stop: 10/15/17 21:59 Last Admin: 10/11/17 10:19 Dose: 1 applic Ondansetron HCl (Zofran Injection) 4 mg IVPUSH Q6H PRN PRN Reason: NAUSEA AND/OR VOMITING - Objective Vital Signs: Vital Signs Temperature 99.5 F 10/11/17 08:58 Pulse Rate 94 H 10/11/17 08:58 Respiratory Rate 18 10/11/17 09:00 Blood Pressure 99/79 10/11/17 08:58 O2 Sat by Pulse Oximetry (%) 100 10/11/17 09:00 Labs: CBC, BMP 10/11/17 05:52 10/11/17 07:32 Assessment/Plan Doing well today- pain is well controlled with YARD WAREHOUSE WORKER. No anesthetic issues; continue current management
--- NOTE | 2017-10-11 11:39 | PN ---
Physical Exam: SUBJECTIVE: No major OVN events. Crit was found to be low, patient is currently getting 1 U PRBCs and will repeat CBC to confirm. OBJECTIVE: Vital Signs Period Temp Pulse Resp BP Sys/Mayer Pulse Ox Last 24 Hr 98.2 F-99.5 F 73-123 16-21 65-153/38-90 99-100 GENERAL: A&Ox3, no distress EYES: PERRLA, EOMI LUNGS: CTA HEART: RRR, systolic murmur noted on exam at the apex, 2/6 ABDOMEN: soft, nontender, BS present EXTREMITIES: 2+ pulses, no edema NEUROLOGICAL: Cranial nerves II through XII grossly intact. Normal speech, gait not observed. PSYCH: Normal mood, normal affect. SKIN: Warm, dry, normal turgor, no rashes or lesions noted, MARYAM drain 140cc dark serosanguinous fluid Laboratory Results - last 24 hr 10/10/17 10/10/17 10/10/17 07:30 15:00 15:00 WBC 10.4 H RBC 3.58 L Hgb 10.4 L Hct 31.9 L MCV 89.0 MCH 29.0 MCHC 32.5 RDW 15.7 H Plt Count 152 MPV 10.0 Neutrophils % 91.7 H Lymphocytes % 6.6 L Monocytes % 1.4 L Eosinophils % 0.0 Basophils % 0.3 Platelet Comment Sodium 143 Potassium 3.2 L Chloride 108 H Carbon Dioxide 26 Anion Gap 9 BUN 17 Creatinine 0.6 Random Glucose 192 H Calcium 7.3 L Phosphorus Magnesium Blood Type A POSITIVE Crossmatch See Detail 10/10/17 10/11/17 10/11/17 23:30 05:52 07:32 WBC 14.0 H D 11.4 H RBC 3.31 L 2.59 L D Hgb 9.7 L 7.6 L D Hct 30.2 L 23.8 L D MCV 91.1 91.9 MCH 29.3 29.2 MCHC 32.2 31.8 L RDW 16.0 H 15.5 Plt Count 114 L D 100 L MPV 10.0 10.5 Neutrophils % 86.7 H Lymphocytes % 6.4 L Monocytes % 6.8 D Eosinophils % 0.0 Basophils % 0.1 Platelet Comment Sodium 143 Potassium 4.4 Chloride 109 H Carbon Dioxide 28 Anion Gap 6 L BUN 16 Creatinine 0.7 Random Glucose 132 H Calcium 7.2 L Phosphorus 2.8 Magnesium 1.5 L Blood Type Crossmatch 10/11/17 07:32 WBC RBC Hgb Hct MCV MCH MCHC RDW Plt Count MPV Neutrophils % Lymphocytes % Monocytes % Eosinophils % Basophils % Platelet Comment Sodium Potassium Chloride Carbon Dioxide Anion Gap BUN Creatinine Random Glucose Calcium Phosphorus Cancelled Magnesium Cancelled Blood Type Crossmatch Active Medications Generic Name Dose Route Start Last Admin Trade Name Freq PRN Reason Stop Dose Admin Acetaminophen 650 mg 10/10/17 22:00 10/11/17 10:06 Tylenol - PO 10/12/17 04:01 650 mg Q6H ERICK Administration Atorvastatin Calcium 10 mg 10/10/17 22:00 10/10/17 22:42 Lipitor - PO 10 mg HS ERICK Administration Chlorhexidine Gluconate 1 applic 10/10/17 22:00 10/10/17 22:40 Hibiclens For Decolonization - TP 1 applic HS ERICK Administration Diazepam 2 mg 10/10/17 16:23 Valium - PO Q8H PRN ANXIETY Docusate Sodium 100 mg 10/11/17 10:00 10/11/17 10:19 Colace - PO 100 mg BID ERICK Administration Gabapentin 600 mg 10/10/17 22:00 10/11/17 06:31 Neurontin - PO 600 mg TID ERICK Administration Hydromorphone HCl 6 mg 10/10/17 15:15 10/10/17 16:35 Dilaudid Rate Quoting Operator - AMBULATORY SERVICE REPRESENTATIVE 10/17/17 15:06 6 mg AMBULATORY SERVICE REPRESENTATIVE ERICK Administration Protocol Sodium Chloride 1,000 mls @ 100 mls/hr 10/11/17 07:29 10/11/17 07:30 Normal Saline - IV 100 mls/hr ASDIR ERICK Administration Mupirocin 1 applic 10/10/17 22:00 10/11/17 10:19 Bactroban Ointment (For Decolonization) - NS 10/15/17 21:59 1 applic BID ERICK Administration Ondansetron HCl 4 mg 10/10/17 07:49 Zofran Injection IVPUSH Q6H PRN NAUSEA AND/OR VOMITING ASSESSMENT/PLAN: 77 year old female with a pmh of arthropathy, BPPV, lumbar disc herniation, constipation, HLD, HTN, hemorrhoids, anemia, CKD, cholelithiasis, polycystic kidneys, hypercalcemia is admitted to the hospital after fusion of T12-S1 vertebrae #Spinal fusion T12-S1: POD1 -neurochecks -pain control - AMBULATORY SERVICE REPRESENTATIVE pump -pt bolused with 500cc NS this AM -continue normal saline @ 100cc/hr -NPO for now, may likely advance diet today -Dr. Benavides input appreciated -monitor drainage output -pain control -encourage incentive spirometry #Hypertension: currently HYPOtensive -bolus 500 given this AM -BP checks -hold BP meds for now - can give when BP increases -pt on lisinopril at home #Hyperlipidemia: stable -continue atorvastatin 10 HS if able to swallow #FEN -continue fluids @ 100cc/hr NS -replete electrolytes in AM -NPO for now, may advance diet today #Prophylaxis -SCDs #Disposition -Continue to monitor in ICU Visit type - Emergency Visit Emergency Visit: No - New Patient This patient is new to me today: No - Critical Care Critical Care patient: Yes Total Critical Care Time (in minutes): 35 Critical Care Statement: The care of this patient involved high complexity decision making to prevent further life threatening deterioration of the patient 's condition and/or to evaluate & treat vital organ system(s) failure or risk of failure.
[2017-10-11] MEDS ORDERED: MAGNESIUM 2GM/50ML STERILE WATER IVPB IVPB ONE (12:55)
--- NOTE | 2017-10-11 12:58 | OP ---
DATE OF OPERATION: 10/10/2017 SURGEON: Dajuan Medrano MD FURNACE OPERATOR: Judy, hospital staff, [facility]. PREOPERATIVE DIAGNOSIS: T12, L1, L2, L3, L4, L5 spinal stenosis with severe claudication, kyphosis and segmental instability. POSTOPERATIVE DIAGNOSIS: T12, L1, L2, L3, L4, L5 spinal stenosis with severe claudication, kyphosis and segmental instability. OPERATION PERFORMED: 1. Laminectomy, T12 to S1, with undercutting facetectomy. 2. Partial corpectomy, L4. 3. Posterior lumbar interbody fusion, L4-L5 and L5-S1. 4. Pedicle screw instrumentation, T12 to S1. 5. Posterolateral arthrodesis, T12 to S1. 6. Kim-Sung osteotomy, L3-L4. 7. Complex wound closure, 30 cm. 8. Bone marrow aspirate concentrate and autologous bone graft. 9. Use of biplane fluoroscopy and intraoperative neuromonitoring. ANESTHESIA: General. ANTIBIOTICS GIVEN: Kefzol 2 g, vancomycin 1 g. BLOOD LOSS: 1600 mL with 500 mL of Cell Saver given back to the patient. TXA utilized. PROCEDURE: Patient was identified, brought into the operating room, placed prone on a spinal frame. All areas were appropriately padded. Under general anesthesia, the back was prepped with Betadine scrub solution, wiped with alcohol, DuraPrep applied, and a square drape applied to expose the thoracolumbar spine. Lateral fluoroscopic x-rays were utilized to identify the skin landmarks for incision purposes. Time-out was called. Imaging was available for intraoperative evaluation. A midline incision was utilized. Dissection was taken to the tip of the spinous process, then down the side of the spinous processes, over the lamina to the facet joints, and then over to the transverse processes, both left- and right-hand side, to expose the entire intertransverse plane, left- and right-hand side. Lateral fluoroscopic x-rays were utilized to verify the exact levels of surgery. The T12 to L1 lamina were identified. All soft tissue was removed from them with Nice retractors. The intertransverse plane was packed with sponges for hemostasis. Hemostasis was achieved as we went along. Using Kerrison upcuts as well as rongeurs, the entire laminae from T12 right on to S1 were resected. At each level, the pars interarticularis and the inferior facets were transected longitudinally and broken inwards. The superior facets were then removed to thus clear the recesses completely and a wide was decompression performed, each nerve root being noted to escape readily out of the foramina. At the L3-L4 level, the laminectomy was extended laterally to the pars interarticularis and a complete Kim-Sung osteotomy performed. In order to achieve entrance to the L4-L5 disk, a partial corpectomy was necessary because of the subtle listhesis and difficulty of getting into that disk. The disks were shaved at L4-L5 and L5-S1 after a transverse incision was made into each annulus with a cruciate configuration, thus creating ample room for the molly at each level. The molly at L4-L5 and L5-S1 were up to size 10 at L5-S1 and 11 at L4-L5. Press-fitted cages were seated at L5-S1, measuring 23 x 11 cage at L5-S1 and a size 23 x 12 at L4-L5. Each interdisk space was packed with autologous bone graft that was the posterior element bone harvested and milled in a [employer] mill. Thus, this completed the posterior lumbar interbody fusion. All disk material had been removed from each disk and bleeding, healthy end-plates noted at each level at L4-L5 and L5-S1. Once this had been achieved, the pedicles of T12 to S1 were identified using anatomic guidelines. A 4-5 drill was utilized to enter the space and seat the screws appropriately. These were 6 x 40 screws, and in the sacrum, 7 x 40 screws were utilized. Each screw was tested with neuromonitoring and found to be completely within the safe parameter zones. Once this had been completed, the rods were contoured appropriately, fixed solidly into position with the appropriate caps and torque device, giving solid fixation. Two cross-links were applied. The wounds were thoroughly lavaged throughout the operation. The muscle was gently lifted off the intertransverse plane and the area packed with bone graft. The bone was mixed with 120 mL of marrow which was harvested through the same wound by a Jamshidi needle into the left posterior ileum, spun down for the CD34 cells. Strips of autologous bone were utilized as well. A rich bone grafting from T12 to L1 right down to the ala of the sacrum was performed. The wounds were thoroughly lavaged. CLOSURE: Closure in 4 layers: Muscle 1-Vicryl, fascia 1-Vicryl, subcutaneous 1- and 2-0 Vicryl, skin andrew. DRAINAGE: A 1/8-inch Hemovac x1 subcutaneously.. COMPLICATIONS: None. The patient tolerated the procedure well and was transferred stable to the ICU. MD BE Pavon/[id number]
[2017-10-11 13:05] LABS: HEMATOCRIT 30.2 % (32.4-45.2); HEMOGLOBIN 9.7 GM/dL (10.7-15.3); MCH 28.7 pg (25.7-33.7); MCHC 32.2 g/dl (32.0-36.0); MEAN CELL VOLUME 88.9 fl (80-96); MEAN PLT VOLUME 9.4 fl (7.5-11.1); PLATELET COUNT 107 K/MM3 (134-434); RBC 3.39 M/mm3 (3.60-5.2); RDW 15.6 % (11.6-15.6); WHITE BLOOD COUNT 13.9 K/mm3 (4.0-10.0)
--- NOTE | 2017-10-11 13:09 | PN ---
Teaching Attending Note Name of Resident: Aby Vila ATTENDING PHYSICIAN STATEMENT I saw and evaluated the patient. I reviewed the resident's note and discussed the case with the resident. I agree with the resident's findings and plan as documented. SUBJECTIVE: Pt seen and examined in the ICU. c/o pain but relatively controlled. Blood pressure borderline low today. No fevers or chills. No shortness of breath or chest pain. OBJECTIVE: Last Vital Signs Temp Pulse Resp BP Pulse Ox 99.5 F 92 H 18 85/40 100 10/11/17 08:58 10/11/17 11:54 10/11/17 11:54 10/11/17 11:54 10/11/17 09:00 Intake & Output 10/08/17 10/09/17 10/10/17 10/11/17 23:59 23:59 23:59 23:59 Intake Total 5950 420 Output Total 2445 540 Balance 3505 -120 Gen: somnolent but arousable Heart: RRR Lung: decreased breath sounds at the bases Abd: soft, nontender Ext: no edema Drain with serosanguinous fluid CBC, BMP 10/11/17 12:57 10/11/17 07:32 Active Medications Acetaminophen (Tylenol -) 650 mg PO Q6H [facility] Stop: 10/12/17 04:01 Last Admin: 10/11/17 10:06 Dose: 650 mg Atorvastatin Calcium (Lipitor -) 10 mg PO HS [facility] Last Admin: 10/10/17 22:42 Dose: 10 mg Chlorhexidine Gluconate (Hibiclens For Decolonization -) 1 applic TP [facility] Last Admin: 10/10/17 22:40 Dose: 1 applic Diazepam (Valium -) 2 mg PO Q8H PRN PRN Reason: ANXIETY Docusate Sodium (Colace -) 100 mg PO BID [facility] Last Admin: 10/11/17 10:19 Dose: 100 mg Gabapentin (Neurontin -) 600 mg PO TID [facility] Last Admin: 10/11/17 06:31 Dose: 600 mg Hydromorphone HCl (Dilaudid Roving Teller -) 6 mg DESKTOP MANAGER DESKTOP MANAGER [facility] PRN Reason: Protocol Stop: 10/17/17 15:06 Last Admin: 10/10/17 16:35 Dose: 6 mg Sodium Chloride (Normal Saline -) 1,000 mls @ 100 mls/hr IV ASDIR [facility] Last Admin: 10/11/17 07:30 Dose: 100 mls/hr Magnesium Sulfate (Magnesium Sulfate) 2 gm IVPB ONCE ONE Stop: 10/11/17 12:56 Mupirocin (Bactroban Ointment (For Decolonization) -) 1 applic NS BID [facility] Stop: 10/15/17 21:59 Last Admin: 10/11/17 10:19 Dose: 1 applic Ondansetron HCl (Zofran Injection) 4 mg IVPUSH Q6H PRN PRN Reason: NAUSEA AND/OR VOMITING ASSESSMENT AND PLAN: Spinal Stenosis s/p T12-S1 posterior decompression/laminecotmy with interbody fusion L4/L5 and L5/S1 Acute Blood Loss Anemia HTN Hyperlipidemia Polycystic Kidney Disease CKD - pain control - incentive spirometry - monitor drain output - monitor H/H - transfuse PRBC - monitor urine output, creatinine - hold antihypertensives for now - DVT prophylaxis - continue ICU monitoring
--- NOTE | 2017-10-11 14:59 | PN ---
Teaching Attending Note Name of Resident: Yury Kaur ATTENDING PHYSICIAN STATEMENT I saw and evaluated the patient. I reviewed the resident's note and discussed the case with the resident. I agree with the resident's findings and plan as documented. SUBJECTIVE: seen at 10:30 am . complains of tolerable pain in back, was hypotensive to 80s earlier this am . No cp or SOB OBJECTIVE: NAd. awake. CV: RRR, no MRG, no JVD Lungs: CTAB Abd: hypoactive BS , ND, NT. Ext: no edema or erythema , 2+ Dp b/l MS: surgical dressing on T and L spine , with MARYAM drain ( sanguinus fluids ) Neuro of LE: RLE: Hip flexion 4/5 . knee flexion and extension , ankle dorsiflexion and plantar flexion 5/5 LLE: hip flexion 3/5 . nee flexionand extension , ankle drsiflexion and plantar flexion 5/5 Knee jerk 1+ on R, 0 on L . nl sensation to light touch . ASSESSMENT AND PLAN: Mrs. Guillen is a 77 y/o lady with h/o HTN, CKD , neuropathy,polycystic kidneys , constipation , hemorrhoids, herniated disks, and other medical problems who presented for decompresion of T12-S1. 1- S/P decompression and fusion of T12-S1. POD 1 hypotensive this am which could be explained by blood loss in Or ( 1100 cc , given back 400 as cell saver) BP improved after IVF bolus and transfusion - goal for HB after surgical blood loss is > 8. - monitor BP. - monitor MARYAM drainage out put - dilaudid SENIOR ERP CONSULTANT - monitor LE neuro exam ( more weakness on Left) - monitor leukocytosis , probably a stress reaction. - follow fever curve 2- Hypotension: likely due to blood and fluid loss with sx - hold antihypertensive meds - cont IVF - blood transfusion for Hb goal of 8 3- Acute blood loss anemia : - as above 4- DVT px : Scds for now
[2017-10-11] MEDS: ATORVASTATIN CA 10 MG TABLET (FP) PO SCH (21:00)
[2017-10-11] MEDS: CHLORHEXIDINE GLUCONATE 4% CLEANSER FOR DECOLONIZATION TP SCH (21:01)
[2017-10-12] MEDS: ACETAMINOPHEN 325 MG TABLET (FP) PO SCH (04:26)
[2017-10-12] MEDS: GABAPENTIN 300 MG CAPSULE (FP) PO SCH ×3 (06:26→21:36)
--- NOTE | 2017-10-12 07:26 | PN ---
Progress Note, Physician History of Present Illness: Last Night: Received total 3u PRBC yesterday. Overnight no acute events. No tele events. VSS , BP improved. Drain inplace +220cc yest serosang. Today: Doing well. Positional back pain. No numbness/tingling. Tolerated clears. - flatus, -bm - Objective Vital Signs: Vital Signs Period Temp Pulse Resp BP Sys/Mayer Pulse Ox Last 24 Hr 97.8 F-100.4 F 90-108 16-22 85-121/40-79 100-100 Additional Findings/Remarks: GEN: AAOx3, NAD, Smiling talking with examiner HEENT: PERRLA, EOMi CV: S1, S2, 3/6 systolic murmur R sided LUNG: Mild bibasialr crackles ABD: Soft, NT, ND MSK: No edema, no erythema, SCD in place NEURO: No lower extremity weakness. Assessment/Plan 77yo F with PMHx of HTN and spinal stenosis who is POD1 from T12-S1 spinal fusion surgery by Dr Benavides. Ortho: * # T12-S1 Spinal Fusion - POD2, drain still in place. Continue pain control. Advance diet as tolerated. PT ordered. Continue incentive spirometry. Discussed w/ Dr Benavides, will keep in ICU for now CV: * # Hypotension - Has hx of HTN, not on home meds due to relative hypotension. BP stable on IVF @ 100cc/hr. Bolus 500cc as needed. * # Anemia - 2/2 acute blood loss. Asymptomatic. Given total 3uPRBC with appropriate response * # HLD - Continue statin FEN/PPx: NS @ 100cc/hr, Clear liquids, SCDs Dispo: Continue ICU mgmt for now. Aby Vila MD PGY1 ICU
[2017-10-12 08:15] LABS: BASO % 0.4 % (0-2.0); HEMATOCRIT 31.9 % (32.4-45.2); HEMOGLOBIN 10.4 GM/dL (10.7-15.3); LYMPH % 10.9 % (8-40); MCH 28.8 pg (25.7-33.7); MCHC 32.6 g/dl (32.0-36.0); MEAN CELL VOLUME 88.2 fl (80-96); MONO % 7.9 % (3.8-10.2); NEUT % 79.8 % (42.8-82.8); PLATELET COUNT 109 K/MM3 (134-434); RBC 3.62 M/mm3 (3.60-5.2); RDW 16.5 % (11.6-15.6); WHITE BLOOD COUNT 14.3 K/mm3 (4.0-10.0)
--- NOTE | 2017-10-12 08:47 | PN ---
<Yury Kaur - Last Filed: 10/12/17 11:01> Physical Exam: SUBJECTIVE: Patient complains of some pain and states that she has been using her AIRBRUSH PAINTER pump. Complains of mild cough that was present before the surgery. Denies chest pain, SOB, nausea, vomiting, diarrhea. Not yet passing gas. Tolerating clear liquid diet. OBJECTIVE: Vital Signs Period Temp Pulse Resp BP Sys/Mayer Pulse Ox Last 24 Hr 97.8 F-100.4 F 90-108 16-22 85-121/40-79 100-100 GENERAL: A&Ox3, no distress EYES: PERRLA, EOMI LUNGS: CTA HEART: RRR, systolic murmur noted on exam at the apex, 2/6 ABDOMEN: soft, nontender, BS present EXTREMITIES: 2+ pulses, no edema NEUROLOGICAL: Cranial nerves II through XII grossly intact. Normal speech, gait not observed. PSYCH: Normal mood, normal affect. SKIN: Warm, dry, normal turgor, no rashes or lesions noted, Drain output dark serosanguinous fluid Laboratory Results - last 24 hr 10/10/17 10/11/17 10/12/17 07:30 12:57 07:20 WBC 13.9 H 14.3 H RBC 3.39 L D 3.62 Hgb 9.7 L D 10.4 L Hct 30.2 L D 31.9 L MCV 88.9 88.2 MCH 28.7 28.8 MCHC 32.2 32.6 RDW 15.6 16.5 H Plt Count 107 L 109 L MPV 9.4 D 10.0 Neutrophils % 79.8 Lymphocytes % 10.9 D Monocytes % 7.9 Eosinophils % 1.0 D Basophils % 0.4 D Blood Type A POSITIVE Crossmatch See Detail Active Medications Generic Name Dose Route Start Last Admin Trade Name Freq PRN Reason Stop Dose Admin Atorvastatin Calcium 10 mg 10/10/17 22:00 10/11/17 21:00 Lipitor - PO 10 mg HS ERICK Administration Chlorhexidine Gluconate 1 applic 10/10/17 22:00 10/11/17 21:01 Hibiclens For Decolonization - TP 1 applic HS ERICK Administration Diazepam 2 mg 10/10/17 16:23 Valium - PO Q8H PRN ANXIETY Docusate Sodium 100 mg 10/11/17 10:00 10/11/17 21:01 Colace - PO 100 mg BID ERICK Administration Gabapentin 600 mg 10/10/17 22:00 10/12/17 06:26 Neurontin - PO 600 mg TID ERICK Administration Hydromorphone HCl 6 mg 10/10/17 15:15 10/10/17 16:35 Dilaudid Hydraulic Press Servicer - AIRBRUSH PAINTER 10/17/17 15:06 6 mg AIRBRUSH PAINTER ERICK Administration Protocol Sodium Chloride 1,000 mls @ 100 mls/hr 10/11/17 07:29 10/11/17 07:30 Normal Saline - IV 100 mls/hr ASDIR ERICK Administration Mupirocin 1 applic 10/10/17 22:00 10/11/17 21:01 Bactroban Ointment (For Decolonization) - NS 10/15/17 21:59 1 applic BID ERICK Administration Ondansetron HCl 4 mg 10/10/17 07:49 Zofran Injection IVPUSH Q6H PRN NAUSEA AND/OR VOMITING ASSESSMENT/PLAN: 77 year old female with a pmh of arthropathy, BPPV, lumbar disc herniation, constipation, HLD, HTN, hemorrhoids, anemia, CKD, cholelithiasis, polycystic kidneys, hypercalcemia is admitted to the hospital after fusion of T12-S1 vertebrae #Spinal fusion T12-S1: POD2 -pain control - AIRBRUSH PAINTER pump -monitor for passage of gas/stool -NS @ 100cc/hr -clear liquid diet -Dr. Benavides input appreciated -monitor drainage output -pain control -encourage incentive spirometry #Anemia: patient stable now -s/p 3U PRBC #Hypophosphatemia: phos 1.2 this Am -replete phosphorus #Hypertension: BP is stable currently -BP checks -hold BP meds for now - can give when BP increases -pt on lisinopril at home #Hyperlipidemia: stable -continue atorvastatin 10 HS if able to swallow #FEN -continue fluids @ 100cc/hr NS -repleted phosphorus this AM, continue to monitor electrolytes in AM -CLD for now, december advance #Prophylaxis -SCDs #Disposition -Continue to monitor in ICU Visit type - Emergency Visit Emergency Visit: No - New Patient This patient is new to me today: No - Critical Care Critical Care patient: Yes Total Critical Care Time (in minutes): 35 Critical Care Statement: The care of this patient involved high complexity decision making to prevent further life threatening deterioration of the patient 's condition and/or to evaluate & treat vital organ system(s) failure or risk of failure. <Sheldon Montenegro - Last Filed: 10/12/17 19:31> Physical Exam: Patient seen and examined with the resident. Feels cheloher on AIRBRUSH PAINTER pump. POD 2 for spinal fusion of T12-S1. continue current management as per ortho. Vital Signs Temperature 100.1 F H 10/12/17 18:00 Pulse Rate 86 10/12/17 18:00 Respiratory Rate 16 10/12/17 18:00 Blood Pressure 115/62 10/12/17 18:00 O2 Sat by Pulse Oximetry (%) 98 10/12/17 09:00 CBCD WBC 13.1 K/mm3 (4.0-10.0) H 10/12/17 11:50 RBC 3.50 M/mm3 (3.60-5.2) L 10/12/17 11:50 Hgb 10.0 GM/dL (10.7-15.3) L 10/12/17 11:50 Hct 30.7 % (32.4-45.2) L 10/12/17 11:50 MCV 87.8 fl (80-96) 10/12/17 11:50 MCHC 32.7 g/dl (32.0-36.0) 10/12/17 11:50 RDW 16.4 % (11.6-15.6) H 10/12/17 11:50 Plt Count 103 K/MM3 (134-434) L 10/12/17 11:50 MPV 9.6 fl (7.5-11.1) 10/12/17 11:50 CMP Sodium 144 mmol/L (136-145) 10/12/17 07:20 Potassium 3.9 mmol/L (3.5-5.1) 10/12/17 07:20 Chloride 109 mmol/L (98-107) H 10/12/17 07:20 Carbon Dioxide 28 mmol/L (21-32) 10/12/17 07:20 Anion Gap 7 (8-16) L 10/12/17 07:20 BUN 11 mg/dL (7-18) 10/12/17 07:20 Creatinine 0.5 mg/dL (0.55-1.02) L 10/12/17 07:20 Random Glucose 103 mg/dL (74-106) 10/12/17 07:20 Calcium 7.6 mg/dL (8.5-10.1) L 10/12/17 07:20 Current Medications Generic Name Dose Route Start Last Admin Trade Name Freq PRN Reason Stop Dose Admin Atorvastatin Calcium 10 mg 10/10/17 22:00 10/11/17 21:00 Lipitor - PO 10 mg HS ERICK Administration Chlorhexidine Gluconate 1 applic 10/10/17 22:00 10/11/17 21:01 Hibiclens For Decolonization - TP 1 applic HS ERICK Administration Diazepam 2 mg 10/10/17 16:23 Valium - PO Q8H PRN ANXIETY Docusate Sodium 100 mg 10/11/17 10:00 10/12/17 10:43 Colace - PO 100 mg BID ERICK Administration Gabapentin 600 mg 10/10/17 22:00 10/12/17 14:23 Neurontin - PO 600 mg TID ERICK Administration Hydromorphone HCl 6 mg 10/10/17 15:15 10/12/17 16:17 Dilaudid Hydraulic Press Servicer - AIRBRUSH PAINTER 10/17/17 15:06 6 mg AIRBRUSH PAINTER ERICK Administration Protocol Sodium Chloride 1,000 mls @ 100 mls/hr 10/11/17 07:29 10/12/17 10:43 Normal Saline - IV Not Given ASDIR ERICK Mupirocin 1 applic 10/10/17 22:00 10/12/17 10:44 Bactroban Ointment (For Decolonization) - NS 10/15/17 21:59 1 applic BID ERICK Administration Ondansetron HCl 4 mg 10/10/17 07:49 Zofran Injection IVPUSH Q6H PRN NAUSEA AND/OR VOMITING Home Medications Medication Instructions Recorded Acetaminophen [Tylenol] 650 mg PO PRN PRN 10/07/17 Gabapentin 600 mg PO TID 10/07/17 Pravastatin Sodium [Pravachol (Nf)] 40 mg PO HS 10/07/17 Hydrocortisone [Proctozone-Hc] 30 gm RC DAILY 10/10/17 Lisinopril 20 mg PO DAILY 10/10/17
[2017-10-12 08:48] LABS: ANION GAP 7 (8-16); BLOOD UREA NITROGEN 11 mg/dL (7-18); CALCIUM 7.6 mg/dL (8.5-10.1); CHLORIDE 109 mmol/L (98-107); CO2 28 mmol/L (21-32); CREATININE 0.5 mg/dL (0.55-1.02); GLUCOSE,RANDOM 103 mg/dL (74-106); MAGNESIUM 2.4 mg/dL (1.8-2.4); POTASSIUM 3.9 mmol/L (3.5-5.1); SODIUM 144 mmol/L (136-145)
[2017-10-12 08:55] LABS: PHOSPHOROUS 1.2 mg/dL (2.5-4.9)
[2017-10-12] MEDS ORDERED: POTASSIUM PHOSPHATE 40 MM in SODIUM CHLORIDE 250 ML IVPB ONE (09:23)
[2017-10-12] MEDS ORDERED: POTASSIUM PHOSPHATE 40 MM in SODIUM CHLORIDE 500 ML IVPB ONE (10:00)
[2017-10-12] MEDS ORDERED: PT OWN MED DRAWER 7, Y5N ONE (10:38)
[2017-10-12] MEDS: DOCUSATE SODIUM 100 MG CAPSULE (FP) PO SCH ×2 (10:43→21:35)
[2017-10-12] MEDS: SODIUM CHLORIDE 1,000 ML IV SCH (10:43)
[2017-10-12] MEDS: MUPIROCIN 2% TOPICAL OINTMENT FOR DECOLONIZATION NS SCH ×2 (10:44→21:35)
--- NOTE | 2017-10-12 11:29 | PN ---
Progress Note (short form) - Note Progress Note: Pain Management Examined patient at bedside. Pain tolerable but not pressing button often enough to keep up with pain. Would recommend patient transitioned form felt machine mechanic to oral analgesics at the discretion of the surgery team.
--- NOTE | 2017-10-12 12:14 | PN ---
Teaching Attending Note Name of Resident: bAy Vila ATTENDING PHYSICIAN STATEMENT I saw and evaluated the patient. I reviewed the resident's note and discussed the case with the resident. I agree with the resident's findings and plan as documented. SUBJECTIVE: Pt seen and examined in the ICU. Pain better controlled today. Denies shortness of breath or chest pain. +nonproductive cough. Transfused 3 units PRBC yesterday with appropriate response. OBJECTIVE: Last Vital Signs Temp Pulse Resp BP Pulse Ox 100.5 F H 92 H 22 117/69 98 10/12/17 10:00 10/12/17 12:00 10/12/17 12:00 10/12/17 12:00 10/12/17 09:00 Intake & Output 10/09/17 10/10/17 10/11/17 10/12/17 23:59 23:59 23:59 23:59 Intake Total 5950 1670 1200 Output Total 2445 1820 560 Balance 3505 -150 640 Weight 59.959 kg Gen: NAD at rest Heart: RRR Lung: decreased breath sounds at the bases Abd: soft, nontender Ext: no edema CBC, BMP 10/12/17 07:20 10/12/17 07:20 Active Medications Atorvastatin Calcium (Lipitor -) 10 mg PO HS [facility] Last Admin: 10/11/17 21:00 Dose: 10 mg Chlorhexidine Gluconate (Hibiclens For Decolonization -) 1 applic TP [facility] Last Admin: 10/11/17 21:01 Dose: 1 applic Diazepam (Valium -) 2 mg PO Q8H PRN PRN Reason: ANXIETY Docusate Sodium (Colace -) 100 mg PO BID [facility] Last Admin: 10/12/17 10:43 Dose: 100 mg Gabapentin (Neurontin -) 600 mg PO TID [facility] Last Admin: 10/12/17 06:26 Dose: 600 mg Hydromorphone HCl (Dilaudid Electronics Utility Worker -) 6 mg KENO TERMINAL OPERATOR KENO TERMINAL OPERATOR [facility] PRN Reason: Protocol Stop: 10/17/17 15:06 Last Admin: 10/10/17 16:35 Dose: 6 mg Sodium Chloride (Normal Saline -) 1,000 mls @ 100 mls/hr IV ASDIR [facility] Last Admin: 10/12/17 10:43 Dose: Not Given Potassium Phosphate 40 mm/ (Sodium Chloride) 513.3333 mls @ 85.556 mls/hr IVPB ONCE ONE Stop: 10/12/17 15:59 Last Admin: 10/12/17 10:42 Dose: 85.556 mls/hr Mupirocin (Bactroban Ointment (For Decolonization) -) 1 applic NS BID ERICK Stop: 10/15/17 21:59 Last Admin: 10/12/17 10:44 Dose: 1 applic Ondansetron HCl (Zofran Injection) 4 mg IVPUSH Q6H PRN PRN Reason: NAUSEA AND/OR VOMITING ASSESSMENT AND PLAN: Spinal Stenosis s/p T12-S1 posterior decompression/laminecotmy with interbody fusion L4/L5 and L5/S1 Acute Blood Loss Anemia HTN Hyperlipidemia Polycystic Kidney Disease CKD - pain control - incentive spirometry - monitor drain output - monitor H/H - monitor urine output, creatinine - hold antihypertensives for now - DVT prophylaxis - continue ICU monitoring
[2017-10-12 12:23] LABS: HEMATOCRIT 30.7 % (32.4-45.2); MCH 28.7 pg (25.7-33.7); MCHC 32.7 g/dl (32.0-36.0); MEAN CELL VOLUME 87.8 fl (80-96); MEAN PLT VOLUME 9.6 fl (7.5-11.1); PLATELET COUNT 103 K/MM3 (134-434); RDW 16.4 % (11.6-15.6); WHITE BLOOD COUNT 13.1 K/mm3 (4.0-10.0)
--- NOTE | 2017-10-12 14:43 | PN ---
Progress Note (short form) - Note Progress Note: Pt without any complaints of SOB/CP or headache. NO nausea or bowel function. s/ p 2 units PRBC yesterday. Pain mostly in the back at the incision site. As per nursing pt using dilaudid minimally. Vital Signs Period Temp Pulse Resp BP Sys/Mayer Pulse Ox Last 24 Hr 97.8 F-100.5 F 90-108 16-22 85-124/47-80 98-100 MARYAM:240ml maroon colored blood uop-1600 clear/yellow urine GEN: appears comfortable, resting in bed Back dressing c/d/i. no evidence of bleeding LE: dorsi/plantar flexion 5/5 b/l. Right leg 4/5 straight leg raise/left 5/5. LE: no calf tenderness or swelling b/l. LESLEY/SCDs in place. CBC, BMP 10/12/17 11:50 10/12/17 07:20 A/P: 77 yo female T12-S1 posterior decompression/laminecotmy with interbody fusion L4/L5 and L5/S1, POD#2 oob to chair/PT today discontinue ayoub cath H&H stable and BP improved after 2 units PRBC adv diet to fulls, awaiting bowel function Continue IV dilaudid D/w Dr. Medrano
[2017-10-12] MEDS: HYDROmorphone *PCA* 6MG/30ML DISP.SYRIN PCA SCH (16:17)
[2017-10-12] MEDS: CHLORHEXIDINE GLUCONATE 4% CLEANSER FOR DECOLONIZATION TP SCH (21:35)
[2017-10-12] MEDS: ATORVASTATIN CA 10 MG TABLET (FP) PO SCH (21:36)
[2017-10-12] MEDS: ACETAMINOPHEN 325 MG TABLET (FP) PO PRN (21:37)
--- NOTE | 2017-10-12 22:05 | PN ---
Progress Note (short form) - Note Progress Note: Pt pulled ayoub earlier in afternoon. Pt has still not voided as of 2200h. Pt reports she feels like she has to "go" but cannot. --Ordered ayoub insert
[2017-10-13] MEDS: GABAPENTIN 300 MG CAPSULE (FP) PO SCH ×3 (05:29→21:43)
--- NOTE | 2017-10-13 07:38 | PN ---
Progress Note (short form) - Note Progress Note: POD #4 Resting in position of comfort...HOB at 30 degrees. States she has been OOB and ambulated hallways yesterday x1. Ayoub cath remains in place. No BMs recorded. C /o incisional pain. Adeqaute pain control via prn meds. States she is passing flatus. No BM yet. Denies n/v/f/c, CP, SOB or LUGO. Last Vital Signs Temp Pulse Resp BP Pulse Ox 98.2 F 86 20 130/84 98 /18 06:00 10/13/17 06:00 /09/01 06:00 10/13/17 06:00 10/12/17 20:16 DRAIN OUTPUT 10/12/17 10/12/17 10/13/17 06:00 17:13 06:00 MARYAM 160 110 140 Ayoub 1,450 GEN: appears comfortable, nad Back dressing c/d/i. MARYAM on bulb suction : ayoub to gravity LE: dorsi/plantar flexion 5/5 b/l. Right leg 4/5 straight leg raise/left 5/5. LE: no calf tenderness or swelling b/l. LESLEY/SCDs in place. Problem List - Problems (1) Back pain Assessment/Plan: POD #4 s/p T12-S1 posterior decompression/laminecotmy with interbody fusion L4/ L5 and L5/S1 Remove ayoub and begin trial of void Soft diet and advance as tolerated Pain management prn as ordered Cont OOB and ambulate Leave dressing intact Tylenol for fever > 100.3F MARYAM to bulb suction (might remove 3/2) Above plan discussed with Dr. Medrano and agrees. Code(s): M54.9 - DORSALGIA, UNSPECIFIED
[2017-10-13] MEDS ORDERED: SODIUM CHLORIDE 1,000 ML IV SCH (07:48)
[2017-10-13 07:58] LABS: BASO % 0.6 % (0-2.0); EOS % 2.3 % (0-4.5); HEMATOCRIT 30.4 % (32.4-45.2); HEMOGLOBIN 10.2 GM/dL (10.7-15.3); LYMPH % 17.7 % (8-40); MCH 29.9 pg (25.7-33.7); MCHC 33.6 g/dl (32.0-36.0); MEAN CELL VOLUME 89.2 fl (80-96); MEAN PLT VOLUME 9.5 fl (7.5-11.1); MONO % 7.7 % (3.8-10.2); NEUT % 71.7 % (42.8-82.8); PLATELET COUNT 112 K/MM3 (134-434); RBC 3.41 M/mm3 (3.60-5.2); RDW 16.1 % (11.6-15.6); WHITE BLOOD COUNT 11.8 K/mm3 (4.0-10.0)
[2017-10-13 08:30] LABS: ANION GAP 6 (8-16); BLOOD UREA NITROGEN 5 mg/dL (7-18); CALCIUM 7.2 mg/dL (8.5-10.1); CHLORIDE 108 mmol/L (98-107); CO2 28 mmol/L (21-32); GLUCOSE,RANDOM 83 mg/dL (74-106); MAGNESIUM 1.7 mg/dL (1.8-2.4); POTASSIUM 3.6 mmol/L (3.5-5.1); SODIUM 142 mmol/L (136-145)
[2017-10-13 08:32] LABS: CREATININE 0.4 mg/dL (0.55-1.02); PHOSPHOROUS 1.6 mg/dL (2.5-4.9)
[2017-10-13] MEDS ORDERED: POTASSIUM PHOSPHATE 40 MM in SODIUM CHLORIDE 500 ML IVPB ONE (08:47)
[2017-10-13] MEDS ORDERED: MAGNESIUM 2GM/50ML STERILE WATER IVPB IVPB ONE (09:00)
--- NOTE | 2017-10-13 09:01 | PN ---
Progress Note, Physician History of Present Illness: Last Night: Febrile last night, Tm 100.9, defervesced with tylenol. Failed trial of void, ayoub replaced. MARYAM drain 270-140cc. Was OOB to chair Today: Doing well. No numbness/tingling. Tolerated clears. +flatus, -bm. Advanced to regular diet Encouraged incentive spirometry use. - Objective Vital Signs: Vital Signs Period Temp Pulse Resp BP Sys/Mayer Pulse Ox Last 24 Hr 98.2 F-100.9 F 81-94 13-22 92-136/52-84 98-98 Additional Findings/Remarks: GEN: AAOx3, NAD, Lying comfortably HEENT: PERRLA, EOMi CV: S1, S2, 3/6 systolic murmur LUNG: Bibasilar crackles ABD: Soft, NT, ND MSK: Back taped, still has MARYAM drainage. Assessment/Plan 77yo F with PMHx of HTN and spinal stenosis who is POD1 from T12-S1 spinal fusion surgery by Dr Benavides. Ortho: * # T12-S1 Spinal Fusion - POD3, drain still in place. Surgery team may take drain out tmrw. Switch REMELT WORKER to PO regimen. OOB to chair. Reg diet. Will keep in ICU for now, await recc from Dr Benavides * # Postop Fever - Tm 100.9. Could be secondary to atelectasis, not using incentive spirometry often, splints at times. Will encourage usage : * # Urinary Retention - Failed first voiding trial. Likely from pain meds. Will try again today. Consider flomax. CV: * # Hypotension - Has hx of HTN, not on home meds due to relative hypotension. BP stable. Fluids stopped. Eating regular diet. * # Anemia - Improved 3uPRBC with appropriate response * # HLD - Continue statin FEN/PPx: Minimal fluids, Regular diet, SCDs Dispo: Continue ICU mgmt for now. Aby Vila MD PGY1 ICU
--- NOTE | 2017-10-13 09:11 | PN ---
<Yury Kaur - Last Filed: 10/13/17 11:23> Physical Exam: SUBJECTIVE: Patient states that her pain has improved since last night. OVN her ayoub was removed, but she failed void trial, and so ayoub was reinserted. Patient is tolerating clear liquid diet. OBJECTIVE: Vital Signs Period Temp Pulse Resp BP Sys/Mayer Pulse Ox Last 24 Hr 98.2 F-100.9 F 81-94 13-22 92-136/52-84 98 GENERAL: A&Ox3, no distress EYES: PERRLA, EOMI LUNGS: CTA HEART: RRR, systolic murmur noted on exam at the apex, 2/6 ABDOMEN: soft, nontender, BS present EXTREMITIES: 2+ pulses, no edema NEUROLOGICAL: Cranial nerves II through XII grossly intact. Normal speech, gait not observed. PSYCH: Normal mood, normal affect. SKIN: Warm, dry, normal turgor, no rashes or lesions noted, Drain output dark serosanguinous fluid Laboratory Results - last 24 hr 10/12/17 10/13/17 10/13/17 11:50 07:30 07:30 WBC 13.1 H 11.8 H RBC 3.50 L 3.41 L Hgb 10.0 L 10.2 L Hct 30.7 L 30.4 L MCV 87.8 89.2 MCH 28.7 29.9 MCHC 32.7 33.6 RDW 16.4 H 16.1 H Plt Count 103 L 112 L MPV 9.6 9.5 Neutrophils % 71.7 Lymphocytes % 17.7 D Monocytes % 7.7 Eosinophils % 2.3 D Basophils % 0.6 Sodium 142 Potassium 3.6 Chloride 108 H Carbon Dioxide 28 Anion Gap 6 L BUN 5 L Creatinine 0.4 L Random Glucose 83 Calcium 7.2 L Phosphorus 1.6 L Magnesium 1.7 L Active Medications Generic Name Dose Route Start Last Admin Trade Name Freq PRN Reason Stop Dose Admin Acetaminophen 650 mg 10/12/17 21:35 10/12/17 21:37 Tylenol - PO 650 mg Q6H PRN Administration FEVER Atorvastatin Calcium 10 mg 10/10/17 22:00 10/12/17 21:36 Lipitor - PO 10 mg HS ERICK Administration Chlorhexidine Gluconate 1 applic 10/10/17 22:00 10/12/17 21:35 Hibiclens For Decolonization - TP 1 applic HS ERICK Administration Diazepam 2 mg 10/10/17 16:23 Valium - PO Q8H PRN ANXIETY Docusate Sodium 100 mg 10/11/17 10:00 10/12/17 21:35 Colace - PO 100 mg BID ERICK Administration Gabapentin 600 mg 10/10/17 22:00 10/13/17 05:29 Neurontin - PO 600 mg TID ERICK Administration Sodium Chloride 1,000 mls @ 21 mls/hr 10/13/17 07:48 Normal Saline - IV ASDIR ERICK Potassium Phosphate 40 mm/ 513.3333 mls @ 85.556 mls/hr 10/13/17 08:47 Sodium Chloride IVPB 10/13/17 14:46 ONCE ONE Mupirocin 1 applic 10/10/17 22:00 10/12/17 21:35 Bactroban Ointment (For Decolonization) - NS 10/15/17 21:59 1 applic BID ERICK Administration Ondansetron HCl 4 mg 10/10/17 07:49 Zofran Injection IVPUSH Q6H PRN NAUSEA AND/OR VOMITING Oxycodone HCl 5 mg 10/13/17 08:10 Roxicodone - PO 10/14/17 08:09 Q4H PRN Pain ASSESSMENT/PLAN: 77 year old female with a pmh of arthropathy, BPPV, lumbar disc herniation, constipation, HLD, HTN, hemorrhoids, anemia, CKD, cholelithiasis, polycystic kidneys, hypercalcemia is admitted to the hospital after fusion of T12-S1 vertebrae #Spinal fusion T12-S1: POD2 -Oxycodone 5mg q4hour prn for pain -monitor for passage of gas/stool -NS @ 100cc/hr -can advance to regular diet -Dr. Benavides input appreciated -monitor drainage output -void trial -pain control -encourage incentive spirometry #Anemia: patient stable now -s/p 3U PRBC #Hypophosphatemia: repleted #Hypertension: BP is stable currently -BP checks -hold BP meds for now - can give when BP increases -pt on lisinopril at home #Hyperlipidemia: stable -continue atorvastatin 10 HS if able to swallow #FEN -continue fluids @ 21cc/hr for med flushing, will remove today -replete lytes in AM -regular diet #Prophylaxis -SCDs #Disposition -Continue to monitor in ICU Visit type - Emergency Visit Emergency Visit: No - New Patient This patient is new to me today: No - Critical Care Critical Care patient: Yes Total Critical Care Time (in minutes): 35 Critical Care Statement: The care of this patient involved high complexity decision making to prevent further life threatening deterioration of the patient 's condition and/or to evaluate & treat vital organ system(s) failure or risk of failure. <Sheldon Montenegro - Last Filed: 10/13/17 17:42> Physical Exam: Patient is comfortable with no acute distress, no nausea or vomiting no headache. Patient failed voiding trial , ayoub was reinserted. Vital Signs Temperature 100.4 F H 10/13/17 14:00 Pulse Rate 98 H 10/13/17 14:00 Respiratory Rate 24 10/13/17 14:00 Blood Pressure 141/70 10/13/17 14:00 O2 Sat by Pulse Oximetry (%) 98 10/13/17 09:00 CBCD WBC 11.8 K/mm3 (4.0-10.0) H 10/13/17 07:30 RBC 3.41 M/mm3 (3.60-5.2) L 10/13/17 07:30 Hgb 10.2 GM/dL (10.7-15.3) L 10/13/17 07:30 Hct 30.4 % (32.4-45.2) L 10/13/17 07:30 MCV 89.2 fl (80-96) 10/13/17 07:30 MCHC 33.6 g/dl (32.0-36.0) 10/13/17 07:30 RDW 16.1 % (11.6-15.6) H 10/13/17 07:30 Plt Count 112 K/MM3 (134-434) L 10/13/17 07:30 MPV 9.5 fl (7.5-11.1) 10/13/17 07:30 CMP Sodium 142 mmol/L (136-145) 10/13/17 07:30 Potassium 3.6 mmol/L (3.5-5.1) 10/13/17 07:30 Chloride 108 mmol/L (98-107) H 10/13/17 07:30 Carbon Dioxide 28 mmol/L (21-32) 10/13/17 07:30 Anion Gap 6 (8-16) L 10/13/17 07:30 BUN 5 mg/dL (7-18) L 10/13/17 07:30 Creatinine 0.4 mg/dL (0.55-1.02) L 10/13/17 07:30 Random Glucose 83 mg/dL (74-106) 10/13/17 07:30 Calcium 7.2 mg/dL (8.5-10.1) L 10/13/17 07:30 Current Medications Generic Name Dose Route Start Last Admin Trade Name Freq PRN Reason Stop Dose Admin Acetaminophen 650 mg 10/12/17 21:35 10/13/17 14:35 Tylenol - PO 650 mg Q6H PRN Administration FEVER Atorvastatin Calcium 10 mg 10/10/17 22:00 10/12/17 21:36 Lipitor - PO 10 mg HS ERICK Administration Chlorhexidine Gluconate 1 applic 10/10/17 22:00 10/12/17 21:35 Hibiclens For Decolonization - TP 1 applic HS ERICK Administration Docusate Sodium 100 mg 10/11/17 10:00 10/13/17 11:28 Colace - PO 100 mg BID ERICK Administration Gabapentin 600 mg 10/10/17 22:00 10/13/17 14:14 Neurontin - PO 600 mg TID ERICK Administration Sodium Chloride 1,000 mls @ 21 mls/hr 10/13/17 07:48 10/13/17 10:00 Normal Saline - IV 21 mls/hr ASDIR ERICK Administration Mupirocin 1 applic 10/10/17 22:00 10/13/17 11:32 Bactroban Ointment (For Decolonization) - NS 10/15/17 21:59 1 applic BID ERICK Administration Ondansetron HCl 4 mg 10/10/17 07:49 Zofran Injection IVPUSH Q6H PRN NAUSEA AND/OR VOMITING Oxycodone HCl 5 mg 10/13/17 08:10 10/13/17 12:36 Roxicodone - PO 10/14/17 08:09 5 mg Q4H PRN Administration Pain Home Medications Medication Instructions Recorded Acetaminophen [Tylenol] 650 mg PO PRN PRN 10/07/17 Gabapentin 600 mg PO TID 10/07/17 Pravastatin Sodium [Pravachol (Nf)] 40 mg PO HS 10/07/17 Hydrocortisone [Proctozone-Hc] 30 gm RC DAILY 10/10/17 Lisinopril 20 mg PO DAILY 10/10/17
--- NOTE | 2017-10-13 10:41 | PN ---
Progress Note, Physician Chief Complaint: Pt. pain is being controlled well with current meds and able to rest without using AERONAUTICS COMMISSION DIRECTOR much. - Current Medication List Current Medications: Active Medications Acetaminophen (Tylenol -) 650 mg PO Q6H PRN PRN Reason: FEVER Last Admin: 10/12/17 21:37 Dose: 650 mg Atorvastatin Calcium (Lipitor -) 10 mg PO [facility] Last Admin: 10/12/17 21:36 Dose: 10 mg Chlorhexidine Gluconate (Hibiclens For Decolonization -) 1 applic TP [facility] Last Admin: 10/12/17 21:35 Dose: 1 applic Diazepam (Valium -) 2 mg PO Q8H PRN PRN Reason: ANXIETY Docusate Sodium (Colace -) 100 mg PO BID [facility] Last Admin: 10/12/17 21:35 Dose: 100 mg Gabapentin (Neurontin -) 600 mg PO TID [facility] Last Admin: 10/13/17 05:29 Dose: 600 mg Sodium Chloride (Normal Saline -) 1,000 mls @ 21 mls/hr IV ASDIR [facility] Potassium Phosphate 40 mm/ (Sodium Chloride) 513.3333 mls @ 85.556 mls/hr IVPB ONCE ONE Stop: 10/13/17 14:46 Mupirocin (Bactroban Ointment (For Decolonization) -) 1 applic NS BID [facility] Stop: 10/15/17 21:59 Last Admin: 10/12/17 21:35 Dose: 1 applic Ondansetron HCl (Zofran Injection) 4 mg IVPUSH Q6H PRN PRN Reason: NAUSEA AND/OR VOMITING Oxycodone HCl (Roxicodone -) 5 mg PO Q4H PRN PRN Reason: Pain Stop: 10/14/17 08:09 - Objective Vital Signs: Vital Signs Temperature 98.5 F 10/13/17 09:48 Pulse Rate 86 10/13/17 09:48 Respiratory Rate 20 10/13/17 09:48 Blood Pressure 136/81 10/13/17 09:48 O2 Sat by Pulse Oximetry (%) 98 10/12/17 20:16 Constitutional: Yes: Well Nourished, No Distress, Calm Musculoskeletal: Yes: WNL Neurological: Yes: WNL, Alert, Oriented Labs: CBC, BMP 10/13/17 07:30 10/13/17 07:30 Assessment/Plan POD#3 s/p L1-S1 PLIF under GA. Doing well. D/C AERONAUTICS COMMISSION DIRECTOR. Start Oxycodone 5mg q4hour prn.
--- NOTE | 2017-10-13 10:48 | PATH ---
Surgical Pathology Report Patient Name: TOMER ALARCON [facility]. Rec. #: [id number] /Age/Gender: 1940 (Age: 77) / F Account: [id number] Location: [facility] Taken: 10/10/2017 Received: 10/11/2017 Reported: 10/13/2017 Physicians: Dajuan Medrano M.D. Specimen(s) Received DISC L4-L5 Clinical History Spinal stenosis, lumbar region without neurogenic Final Diagnosis INTERVERTEBRAL DISC, L4-5, PARTIAL EXCISION: PORTIONS OF INTERVERTEBRAL DISC, AND SMALL FRAGMENTS OF BONE. Electronically Signed Santi Candelaria M.D. Gross Description Received in formalin labeled "disc L4-L5," is a 4.0 x 3.2 x 0.4 cm aggregate of talamantes fragments of fibrocartilaginous tissue. A eligibility services representative portion is submitted in one cassette. /10/11/201710/11/2017
[2017-10-13] MEDS: DOCUSATE SODIUM 100 MG CAPSULE (FP) PO SCH ×2 (11:28→21:43)
[2017-10-13] MEDS: MUPIROCIN 2% TOPICAL OINTMENT FOR DECOLONIZATION NS SCH ×2 (11:32→21:42)
--- NOTE | 2017-10-13 12:32 | PN ---
Teaching Attending Note Name of Resident: Aby Vila ATTENDING PHYSICIAN STATEMENT I saw and evaluated the patient. I reviewed the resident's note and discussed the case with the resident. I agree with the resident's findings and plan as documented. SUBJECTIVE: Pt seen and examined in the ICU. Pain controlled. Low grade temp overnight. No shortness of breath or chest pain. OBJECTIVE: Last Vital Signs Temp Pulse Resp BP Pulse Ox 98.5 F 86 20 136/81 98 10/13/17 09:48 10/13/17 09:48 10/13/17 09:48 10/13/17 09:48 10/13/17 09:00 Intake & Output 10/10/17 10/11/17 10/12/17 10/13/17 23:59 23:59 23:59 23:59 Intake Total 5950 1670 2500 1200 Output Total 2445 1820 1020 1590 Balance 3505 -150 1480 -390 Weight 59.959 kg 61.5 kg Gen: NAD at rest Heart: RRR Lung: decreased breath sounds at the bases Abd: soft, nontender Ext: no edema Drain with serosanguinous fluid CBC, BMP 10/13/17 07:30 10/13/17 07:30 Active Medications Acetaminophen (Tylenol -) 650 mg PO Q6H PRN PRN Reason: FEVER Last Admin: 10/12/17 21:37 Dose: 650 mg Atorvastatin Calcium (Lipitor -) 10 mg PO HS [facility] Last Admin: 10/12/17 21:36 Dose: 10 mg Chlorhexidine Gluconate (Hibiclens For Decolonization -) 1 applic TP [facility] Last Admin: 10/12/17 21:35 Dose: 1 applic Diazepam (Valium -) 2 mg PO Q8H PRN PRN Reason: ANXIETY Docusate Sodium (Colace -) 100 mg PO BID [facility] Last Admin: 10/13/17 11:28 Dose: 100 mg Gabapentin (Neurontin -) 600 mg PO TID [facility] Last Admin: 10/13/17 05:29 Dose: 600 mg Sodium Chloride (Normal Saline -) 1,000 mls @ 21 mls/hr IV ASDIR [facility] Last Admin: 10/13/17 10:00 Dose: 21 mls/hr Potassium Phosphate 40 mm/ (Sodium Chloride) 513.3333 mls @ 85.556 mls/hr IVPB ONCE ONE Stop: 10/13/17 14:46 Mupirocin (Bactroban Ointment (For Decolonization) -) 1 applic NS BID ERICK Stop: 10/15/17 21:59 Last Admin: 10/13/17 11:32 Dose: 1 applic Ondansetron HCl (Zofran Injection) 4 mg IVPUSH Q6H PRN PRN Reason: NAUSEA AND/OR VOMITING Oxycodone HCl (Roxicodone -) 5 mg PO Q4H PRN PRN Reason: Pain Stop: 10/14/17 08:09 ASSESSMENT AND PLAN: Spinal Stenosis s/p T12-S1 posterior decompression/laminecotmy with interbody fusion L4/L5 and L5/S1 Acute Blood Loss Anemia HTN Hyperlipidemia Polycystic Kidney Disease CKD - pain control - incentive spirometry - monitor drain output - monitor H/H - monitor urine output, creatinine - DVT prophylaxis - continue ICU monitoring
[2017-10-13] MEDS: oxyCODONE HCL 5 MG TABLET PO PRN ×2 (12:36→21:43)
[2017-10-13] MEDS ORDERED: TAMSULOSIN HCL 0.4 MG CAP.ER.24H (FP) PO ONE (13:59)
[2017-10-13] MEDS: ACETAMINOPHEN 325 MG TABLET (FP) PO PRN ×2 (14:35→21:44)
[2017-10-13] MEDS: SODIUM CHLORIDE 1,000 ML IV SCH (20:19)
[2017-10-13] MEDS: ATORVASTATIN CA 10 MG TABLET (FP) PO SCH (21:43)
[2017-10-13] MEDS: CHLORHEXIDINE GLUCONATE 4% CLEANSER FOR DECOLONIZATION TP SCH (21:43)
[2017-10-14 06:22] LABS: HEMATOCRIT 30.1 % (32.4-45.2); HEMOGLOBIN 10.2 GM/dL (10.7-15.3); MCH 30.3 pg (25.7-33.7); MCHC 33.8 g/dl (32.0-36.0); MEAN CELL VOLUME 89.6 fl (80-96); MEAN PLT VOLUME 9.9 fl (7.5-11.1); PLATELET COUNT 171 K/MM3 (134-434); RBC 3.36 M/mm3 (3.60-5.2); WHITE BLOOD COUNT 8.8 K/mm3 (4.0-10.0)
[2017-10-14] MEDS: GABAPENTIN 300 MG CAPSULE (FP) PO SCH ×3 (06:30→21:31)
[2017-10-14] MEDS: oxyCODONE HCL 5 MG TABLET PO PRN ×2 (06:33→21:31)
[2017-10-14 06:34] LABS: ANION GAP 9 (8-16); BLOOD UREA NITROGEN 7 mg/dL (7-18); CALCIUM 7.8 mg/dL (8.5-10.1); CHLORIDE 105 mmol/L (98-107); CO2 29 mmol/L (21-32); CREATININE 0.4 mg/dL (0.55-1.02); GLUCOSE,RANDOM 90 mg/dL (74-106); MAGNESIUM 2.1 mg/dL (1.8-2.4); PHOSPHOROUS 2.3 mg/dL (2.5-4.9); SGOT/AST 20 U/L (15-37); SGPT/ALT 16 U/L (12-78); SODIUM 143 mmol/L (136-145)
[2017-10-14] MEDS: ACETAMINOPHEN 325 MG TABLET (FP) PO PRN ×3 (06:35→21:31)
[2017-10-14 06:36] LABS: ALK PHOS 44 U/L (45-117); BILIRUBIN,TOTAL 0.6 mg/dL (0.2-1.0); TOT PROT 4.8 g/dl (6.4-8.2)
--- NOTE | 2017-10-14 07:20 | PN ---
Progress Note (short form) - Note Progress Note: POD #5 Resting in position of comfort...HOB at 30 degrees. States she has been OOB and ambulated hallways yesterday x1. Beltran cath remains in place. No BMs recorded. C /o incisional pain. Adeqaute pain control via prn meds. States she is passing flatus. No BM yet. Denies n/v/f/c, CP, SOB or LUGO. Last Vital Signs Temp Pulse Resp BP Pulse Ox 98.7 F 90 20 130/78 98 10/14/17 02:00 10/14/17 04:00 10/14/17 04:00 10/14/17 04:00 10/13/17 20:00 CBC, BMP 10/14/17 05:55 10/14/17 05:55 GEN: appears comfortable, nad Back dressing c/d/i. MARYAM on bulb suction drained 140 yesterday. 30mL recorded this morning LE: dorsi/plantar flexion 5/5 b/l. Right leg 4/5 straight leg raise/left 5/5. LE: no calf tenderness or swelling b/l. LESLEY/SCDs in place. Problem List - Problems (1) Back pain Assessment/Plan: POD #5 s/p T12-S1 posterior decompression/laminecotmy with interbody fusion L4/ L5 and L5/S1 Diet and advance as tolerated Pain management prn as ordered Physical therapy to continue mobilizing patient Cont OOB and ambulate Leave dressing intact Tylenol for fever > 100.3F Cont MARYAM --> possible dc 3/3 if output decreases Downgrade her to floor Above plan discussed with Dr. Medrano and agrees. Code(s): M54.9 - DORSALGIA, UNSPECIFIED Problem List - Problems (1) Back pain Code(s): M54.9 - DORSALGIA, UNSPECIFIED
[2017-10-14] MEDS ORDERED: NAPH,MB-DB/K PH,MBDB POWDER PACKET PO ONE (07:34)
[2017-10-14] MEDS: DOCUSATE SODIUM 100 MG CAPSULE (FP) PO SCH ×2 (09:17→21:31)
[2017-10-14] MEDS: MUPIROCIN 2% TOPICAL OINTMENT FOR DECOLONIZATION NS SCH (09:20)
--- NOTE | 2017-10-14 09:25 | PN ---
<Yury Kaur - Last Filed: 10/14/17 09:34> Physical Exam: SUBJECTIVE: Patient seen and examined at bedside. She is walking without pain. States that she is making urine and having bowel movements. Tolerating diet. No fevers, chills, chest pain, SOB. OBJECTIVE: Vital Signs Period Temp Pulse Resp BP Sys/Mayer Pulse Ox Last 24 Hr 98.4 F-100.4 F 80-100 20-24 97-141/65-81 98 GENERAL: A&Ox3, no distress EYES: PERRLA, EOMI LUNGS: CTA HEART: RRR, systolic murmur noted on exam at the apex, 2/6 ABDOMEN: soft, nontender, BS present EXTREMITIES: 2+ pulses, no edema NEUROLOGICAL: Cranial nerves II through XII grossly intact. Normal speech, gait not observed. PSYCH: Normal mood, normal affect. SKIN: Warm, dry, normal turgor, no rashes or lesions noted, Drain output 140cc overnight of dark serosanguinous fluid Laboratory Results - last 24 hr 10/10/17 10/14/17 10/14/17 07:30 05:55 05:55 WBC 8.8 RBC 3.36 L Hgb 10.2 L Hct 30.1 L MCV 89.6 MCH 30.3 MCHC 33.8 RDW 16.0 H Plt Count 171 D MPV 9.9 Sodium 143 Potassium 4.0 Chloride 105 Carbon Dioxide 29 Anion Gap 9 BUN 7 Creatinine 0.4 L Creat Clearance w eGFR > 60 Random Glucose 90 Calcium 7.8 L Phosphorus 2.3 L Magnesium 2.1 Total Bilirubin 0.6 AST 20 ALT 16 Alkaline Phosphatase 44 L Total Protein 4.8 L Albumin 2.0 L Blood Type A POSITIVE Crossmatch See Detail Active Medications Generic Name Dose Route Start Last Admin Trade Name Freq PRN Reason Stop Dose Admin Acetaminophen 650 mg 10/12/17 21:35 10/14/17 06:35 Tylenol - PO 650 mg Q6H PRN Administration FEVER Atorvastatin Calcium 10 mg 10/10/17 22:00 10/13/17 21:43 Lipitor - PO 10 mg HS ERICK Administration Chlorhexidine Gluconate 1 applic 10/10/17 22:00 10/13/17 21:43 Hibiclens For Decolonization - TP 1 applic HS ERICK Administration Docusate Sodium 100 mg 10/11/17 10:00 10/14/17 09:17 Colace - PO 100 mg BID ERICK Administration Gabapentin 600 mg 10/10/17 22:00 10/14/17 06:30 Neurontin - PO 600 mg TID ERICK Administration Mupirocin 1 applic 10/10/17 22:00 10/14/17 09:20 Bactroban Ointment (For Decolonization) - NS 10/15/17 21:59 1 applic BID ERICK Administration Ondansetron HCl 4 mg 10/10/17 07:49 Zofran Injection IVPUSH Q6H PRN NAUSEA AND/OR VOMITING ASSESSMENT/PLAN: 77 year old female with a pmh of arthropathy, BPPV, lumbar disc herniation, constipation, HLD, HTN, hemorrhoids, anemia, CKD, cholelithiasis, polycystic kidneys, hypercalcemia is admitted to the hospital after fusion of T12-S1 vertebrae #Spinal fusion T12-S1: POD4, patient improving -tylenol for pain control -tolerating diet -Dr. Benavides input appreciated -monitor drainage output, may DC 3/3 if drainage decreases -patient voiding spontaneously -encourage incentive spirometry #Anemia: patient stable now -s/p 3U PRBC #Hypophosphatemia: repleted #Hypertension: BP is stable currently -BP checks -hold BP meds for now - can give when BP increases -pt on lisinopril at home #Hyperlipidemia: stable -continue atorvastatin 10 HS if able to swallow #FEN -no standing fluids -replete lytes in AM -regular diet #Prophylaxis -SCDs #Disposition -can transfer to floors today Visit type - Emergency Visit Emergency Visit: No - New Patient This patient is new to me today: No - Critical Care Critical Care patient: Yes Total Critical Care Time (in minutes): 35 Critical Care Statement: The care of this patient involved high complexity decision making to prevent further life threatening deterioration of the patient 's condition and/or to evaluate & treat vital organ system(s) failure or risk of failure. <Sheldon Montenegro - Last Filed: 10/14/17 18:58> Physical Exam: Patient is doing better, pain is less. Agree with the resident's plan. Vital Signs Temperature 98.4 F 10/14/17 16:00 Pulse Rate 94 H 10/14/17 16:00 Respiratory Rate 18 10/14/17 16:00 Blood Pressure 133/63 10/14/17 16:00 O2 Sat by Pulse Oximetry (%) 99 10/14/17 08:00 CBCD WBC 8.8 K/mm3 (4.0-10.0) 10/14/17 05:55 RBC 3.36 M/mm3 (3.60-5.2) L 10/14/17 05:55 Hgb 10.2 GM/dL (10.7-15.3) L 10/14/17 05:55 Hct 30.1 % (32.4-45.2) L 10/14/17 05:55 MCV 89.6 fl (80-96) 10/14/17 05:55 MCHC 33.8 g/dl (32.0-36.0) 10/14/17 05:55 RDW 16.0 % (11.6-15.6) H 10/14/17 05:55 Plt Count 171 K/MM3 (134-434) D 10/14/17 05:55 MPV 9.9 fl (7.5-11.1) 10/14/17 05:55 CMP Sodium 143 mmol/L (136-145) 10/14/17 05:55 Potassium 4.0 mmol/L (3.5-5.1) 10/14/17 05:55 Chloride 105 mmol/L (98-107) 10/14/17 05:55 Carbon Dioxide 29 mmol/L (21-32) 10/14/17 05:55 Anion Gap 9 (8-16) 10/14/17 05:55 BUN 7 mg/dL (7-18) 10/14/17 05:55 Creatinine 0.4 mg/dL (0.55-1.02) L 10/14/17 05:55 Creat Clearance w eGFR > 60 (>60) 10/14/17 05:55 Random Glucose 90 mg/dL (74-106) 10/14/17 05:55 Calcium 7.8 mg/dL (8.5-10.1) L 10/14/17 05:55 Total Bilirubin 0.6 mg/dL (0.2-1.0) 10/14/17 05:55 AST 20 U/L (15-37) 10/14/17 05:55 ALT 16 U/L (12-78) 10/14/17 05:55 Alkaline Phosphatase 44 U/L (45-117) L 10/14/17 05:55 Total Protein 4.8 g/dl (6.4-8.2) L 10/14/17 05:55 Albumin 2.0 g/dl (3.4-5.0) L 10/14/17 05:55 Current Medications Generic Name Dose Route Start Last Admin Trade Name Freq PRN Reason Stop Dose Admin Acetaminophen 650 mg 10/14/17 14:46 10/14/17 15:35 Tylenol - PO 650 mg Q6H PRN Administration PAIN OR FEVER Atorvastatin Calcium 10 mg 10/14/17 22:00 Lipitor - PO HS [facility] Docusate Sodium 100 mg 10/14/17 22:00 Colace - PO BID ERICK Gabapentin 600 mg 10/14/17 22:00 Neurontin - PO TID [facility] Potassium Phosphate 40 mm/ 263.3333 mls @ 62.5 mls/hr 10/14/17 15:40 17:14 Sodium Chloride IVPB 10/14/17 19:52 62.5 mls/hr ONCE ONE Administration Ondansetron HCl 4 mg 10/14/17 15:40 Zofran Injection IVPUSH Q6H PRN NAUSEA AND/OR VOMITING Oxycodone HCl 5 mg 10/14/17 14:47 Roxicodone - PO Q6H PRN PAIN LEVEL 6-10 Home Medications Medication Instructions Recorded Acetaminophen [Tylenol] 650 mg PO PRN PRN 10/07/17 Gabapentin 600 mg PO TID 10/07/17 Pravastatin Sodium [Pravachol (Nf)] 40 mg PO HS 10/07/17 Hydrocortisone [Proctozone-Hc] 30 gm RC DAILY 10/10/17 Lisinopril 20 mg PO DAILY 10/10/17
--- NOTE | 2017-10-14 10:26 | SURG ---
Surgery Journeyman Painter Note Journeyman Painter: Judy Ray PA-C Date of Service: 10/10/17 Diagnosis: spinal stenosis Procedure: T12-S1 posterior decompression/laminecotmy with interbody fusion L4/L5 and L5/S1 I was present for the entirety of the operative procedure. For further detail, please refer to operative report. Visit type - Case Type Case Type: Scheduled Admission - Emergency Emergency Visit: No - New patient This patient is new to me today: Yes Date on this admission: 10/14/17
--- NOTE | 2017-10-14 12:17 | PN ---
Teaching Attending Note Name of Resident: Aby Vila ATTENDING PHYSICIAN STATEMENT I saw and evaluated the patient. I reviewed the resident's note and discussed the case with the resident. I agree with the resident's findings and plan as documented. SUBJECTIVE: Patient seen and examined in the ICU. Pain seems better controlled today. Afebrile. No CP or SOB. OBJECTIVE: Intake & Output 10/11/17 10/12/17 10/13/17 10/14/17 23:59 23:59 23:59 23:59 Intake Total 1670 2500 1300 400 Output Total 1820 1020 3690 80 Balance -150 1480 -2390 320 Weight 132 lb 3 oz 135 lb 9.349 oz 134 lb 6.4 oz Last Vital Signs Temp Pulse Resp BP Pulse Ox 98.2 F 88 18 136/69 99 10/14/17 10:00 10/14/17 12:12 10/14/17 12:12 10/14/17 12:12 10/14/17 08:00 Active Medications Acetaminophen (Tylenol -) 650 mg PO Q6H PRN PRN Reason: FEVER Last Admin: 10/14/17 06:35 Dose: 650 mg Atorvastatin Calcium (Lipitor -) 10 mg PO [facility] Last Admin: 10/13/17 21:43 Dose: 10 mg Chlorhexidine Gluconate (Hibiclens For Decolonization -) 1 applic TP [facility] Last Admin: 10/13/17 21:43 Dose: 1 applic Docusate Sodium (Colace -) 100 mg PO BID [facility] Last Admin: 10/14/17 09:17 Dose: 100 mg Gabapentin (Neurontin -) 600 mg PO TID [facility] Last Admin: 10/14/17 06:30 Dose: 600 mg Mupirocin (Bactroban Ointment (For Decolonization) -) 1 applic NS BID [facility] Stop: 10/15/17 21:59 Last Admin: 10/14/17 09:20 Dose: 1 applic Ondansetron HCl (Zofran Injection) 4 mg IVPUSH Q6H PRN PRN Reason: NAUSEA AND/OR VOMITING Gen: Awake and alert, NAD at rest Heart: RRR Lung: decreased breath sounds at the bases Abd: soft, nontender Ext: no edema Drain: serosanguinous drainage Laboratory Results - last 24 hr 10/10/17 10/14/17 10/14/17 07:30 05:55 05:55 WBC 8.8 RBC 3.36 L Hgb 10.2 L Hct 30.1 L MCV 89.6 MCH 30.3 MCHC 33.8 RDW 16.0 H Plt Count 171 D MPV 9.9 Sodium 143 Potassium 4.0 Chloride 105 Carbon Dioxide 29 Anion Gap 9 BUN 7 Creatinine 0.4 L Creat Clearance w eGFR > 60 Random Glucose 90 Calcium 7.8 L Phosphorus 2.3 L Magnesium 2.1 Total Bilirubin 0.6 AST 20 ALT 16 Alkaline Phosphatase 44 L Total Protein 4.8 L Albumin 2.0 L Blood Type A POSITIVE Crossmatch See Detail ASSESSMENT AND PLAN: Spinal Stenosis S/P T12-S1 posterior decompression/laminecotmy with interbody fusion L4/L5 and L5/S1 Acute Blood Loss Anemia HTN Hyperlipidemia Polycystic Kidney Disease CKD - Pain control - Incentive spirometry - Monitor drain output - Monitor H/H - Monitor urine output, creatinine - DVT prophylaxis - Floor Dr Cortez
--- NOTE | 2017-10-14 14:29 | PN ---
Progress Note, Physician History of Present Illness: Last Night: No fevers. RADHA. MARYAM draining less serosanguinous fluid. Beltran removed. Patient spontaneously voided. Today: Doing well. No numbness/tingling. +bowel movement. - Objective Vital Signs: Vital Signs Period Temp Pulse Resp BP Sys/Mayer Pulse Ox Last 24 Hr 98.2 F-99.2 F 80-95 18-23 109-136/65-78 98-99 Additional Findings/Remarks: GEN: AAOx3, NAD, Lying comfortably talking with examiner HEENT: PERRLA, EOMi CV: S1, S2, RRR LUNG: mild bibasilar craclkes ABD: Soft, NT, ND MSK: dressing still on back, draining serosanguinous fluid Assessment/Plan 77yo F with PMHx of HTN and spinal stenosis who is POD1 from T12-S1 spinal fusion surgery by Dr Benavides. Ortho: * # T12-S1 Spinal Fusion - POD4, MARYAM drain output is decreasing. Voided spontaneously. No fevers. Has been using incentive spirometry. Pain is well controlled. Surgery team spoke with Dr Benavides who stated that patient can be transferred to floors. : * # Urinary Retention - Resolved. Passed voiding trial. Flomax started here. CV: * # Hypotension - Has hx of HTN, not on home meds due to relative hypotension. BP stable. Fluids stopped. Eating regular diet. * # Anemia - Improved 3uPRBC with appropriate response * # HLD - Continue statin FEN/PPx: Minimal fluids, Regular diet, SCDs Dispo: Transfer to med/surg, order placed. Aby Vila MD PGY1 ICU
[2017-10-14] MEDS ORDERED: POTASSIUM PHOSPHATE 40 MM in SODIUM CHLORIDE 250 ML IVPB ONE (15:40)
[2017-10-14] MEDS ORDERED: ONDANSETRON 4 MG/2 ML VIAL IVPUSH PRN (15:40)
[2017-10-14] MEDS: HYDROmorphone *PCA* 6MG/30ML DISP.SYRIN PCA SCH (18:17)
[2017-10-14] MEDS: ATORVASTATIN CA 10 MG TABLET (FP) PO SCH (21:31)
[2017-10-15] MEDS: oxyCODONE HCL 5 MG TABLET PO PRN ×4 (05:10→21:29)
[2017-10-15] MEDS: ACETAMINOPHEN 325 MG TABLET (FP) PO PRN ×2 (05:10→20:03)
[2017-10-15] MEDS: GABAPENTIN 300 MG CAPSULE (FP) PO SCH ×3 (05:30→21:22)
[2017-10-15 08:26] LABS: HEMATOCRIT 28.6 % (32.4-45.2); HEMOGLOBIN 9.6 GM/dL (10.7-15.3); MCH 30.3 pg (25.7-33.7); MCHC 33.5 g/dl (32.0-36.0); MEAN CELL VOLUME 90.3 fl (80-96); MEAN PLT VOLUME 9.3 fl (7.5-11.1); PLATELET COUNT 189 K/MM3 (134-434); RBC 3.17 M/mm3 (3.60-5.2); RDW 15.3 % (11.6-15.6)
[2017-10-15 08:27] LABS: ANION GAP 10 (8-16); BLOOD UREA NITROGEN 6 mg/dL (7-18); CHLORIDE 102 mmol/L (98-107); CO2 28 mmol/L (21-32); CREATININE 0.3 mg/dL (0.55-1.02); GLUCOSE,RANDOM 88 mg/dL (74-106); PHOSPHOROUS 3.4 mg/dL (2.5-4.9); SODIUM 140 mmol/L (136-145)
[2017-10-15] MEDS: DOCUSATE SODIUM 100 MG CAPSULE (FP) PO SCH ×2 (10:05→21:22)
--- NOTE | 2017-10-15 10:20 | PN ---
Physical Exam: SUBJECTIVE: Patient seen and examined Patient is comfortable with no acute distress, patient is feeling better today. tolerating diet well. OBJECTIVE: Vital Signs Temperature 98.9 F 10/15/17 06:00 Pulse Rate 85 10/15/17 06:00 Respiratory Rate 20 10/15/17 06:00 Blood Pressure 120/72 10/15/17 06:00 O2 Sat by Pulse Oximetry (%) 98 10/14/17 21:00 PE: as per ortho Le: pulses are positive, positive for SCDs and randall stocking, no calf tenderness, positive for drainage at surgical site. CBCD WBC 8.0 K/mm3 (4.0-10.0) 10/15/17 07:00 RBC 3.17 M/mm3 (3.60-5.2) L 10/15/17 07:00 Hgb 9.6 GM/dL (10.7-15.3) L 10/15/17 07:00 Hct 28.6 % (32.4-45.2) L 10/15/17 07:00 MCV 90.3 fl (80-96) 10/15/17 07:00 MCHC 33.5 g/dl (32.0-36.0) 10/15/17 07:00 RDW 15.3 % (11.6-15.6) 10/15/17 07:00 Plt Count 189 K/MM3 (134-434) 10/15/17 07:00 MPV 9.3 fl (7.5-11.1) 10/15/17 07:00 CMP Sodium 140 mmol/L (136-145) 10/15/17 07:00 Potassium 4.0 mmol/L (3.5-5.1) 10/15/17 07:00 Chloride 102 mmol/L (98-107) 10/15/17 07:00 Carbon Dioxide 28 mmol/L (21-32) 10/15/17 07:00 Anion Gap 10 (8-16) 10/15/17 07:00 BUN 6 mg/dL (7-18) L 10/15/17 07:00 Creatinine 0.3 mg/dL (0.55-1.02) L 10/15/17 07:00 Creat Clearance w eGFR > 60 (>60) 10/14/17 05:55 Random Glucose 88 mg/dL (74-106) 10/15/17 07:00 Calcium 8.0 mg/dL (8.5-10.1) L 10/15/17 07:00 Total Bilirubin 0.6 mg/dL (0.2-1.0) 10/14/17 05:55 AST 20 U/L (15-37) 10/14/17 05:55 ALT 16 U/L (12-78) 10/14/17 05:55 Alkaline Phosphatase 44 U/L (45-117) L 10/14/17 05:55 Total Protein 4.8 g/dl (6.4-8.2) L 10/14/17 05:55 Albumin 2.0 g/dl (3.4-5.0) L 10/14/17 05:55 Current Medications Generic Name Dose Route Start Last Admin Trade Name Freq PRN Reason Stop Dose Admin Acetaminophen 650 mg 10/14/17 14:46 10/15/17 05:10 Tylenol - PO 650 mg Q6H PRN Administration PAIN OR FEVER Atorvastatin Calcium 10 mg 10/14/17 22:00 10/14/17 21:31 Lipitor - PO 10 mg HS ERICK Administration Docusate Sodium 100 mg 10/14/17 22:00 10/15/17 10:05 Colace - PO 100 mg BID ERICK Administration Gabapentin 600 mg 10/14/17 22:00 10/15/17 05:30 Neurontin - PO 600 mg TID ERICK Administration Ondansetron HCl 4 mg 10/14/17 15:40 Zofran Injection IVPUSH Q6H PRN NAUSEA AND/OR VOMITING Oxycodone HCl 5 mg 10/14/17 14:47 10/15/17 10:18 Roxicodone - PO 5 mg Q6H PRN Administration PAIN LEVEL 6-10 Home Medications Medication Instructions Recorded Acetaminophen [Tylenol] 650 mg PO PRN PRN 10/07/17 Gabapentin 600 mg PO TID 10/07/17 Pravastatin Sodium [Pravachol (Nf)] 40 mg PO HS 10/07/17 Hydrocortisone [Proctozone-Hc] 30 gm RC DAILY 10/10/17 Lisinopril 20 mg PO DAILY 10/10/17 A/P: 77 year old female with a pmh of arthropathy, BPPV, lumbar disc herniation, constipation, HLD, HTN, hemorrhoids, anemia, CKD, cholelithiasis, polycystic kidneys, hypercalcemia is admitted to the hospital after fusion of T12-S1 vertebrae #Spinal fusion T12-S1: POD5, patient improving, continue oxycodone and neurontin as per ortho continue Colace for constipation #Anemia: patient stable now s/p 3U PRBC #Hypophosphatemia: repleted #Hypertension: BP is stable currently #Hyperlipidemia: continue atorvastatin 10 HS if able to swallow DVT Prophylaxis: SCDs Visit type - Emergency Visit Emergency Visit: Yes ED Registration Date: 10/10/17 Care time: The patient presented to the Emergency Department on the above date and was hospitalized for further evaluation of their emergent condition. - New Patient This patient is new to me today: No - Critical Care Critical Care patient: No - Discharge Referral Referred to [facility] Med [facility].C[facility] No
[2017-10-15] MEDS: ATORVASTATIN CA 10 MG TABLET (FP) PO SCH (21:22)
[2017-10-16] MEDS: ACETAMINOPHEN 325 MG TABLET (FP) PO PRN ×2 (03:32→12:49)
[2017-10-16] MEDS: oxyCODONE HCL 5 MG TABLET PO PRN ×3 (03:33→16:03)
[2017-10-16] MEDS: GABAPENTIN 300 MG CAPSULE (FP) PO SCH ×3 (06:58→21:31)
--- NOTE | 2017-10-16 09:52 | PN ---
Physical Exam: SUBJECTIVE: Patient seen and examined at bedside. States that she has pain in her back but it has significantly improved since the days prior. OBJECTIVE: Vital Signs Period Temp Pulse Resp BP Sys/Mayer Pulse Ox Last 24 Hr 98.2 F-99.2 F 83-101 20-20 114-129/68-76 98 GENERAL: A&Ox3, no distress EYES: PERRLA, EOMI LUNGS: CTA HEART: RRR, systolic murmur noted on exam at the apex, 2/6 ABDOMEN: soft, nontender, BS present EXTREMITIES: 2+ pulses, no edema NEUROLOGICAL: Cranial nerves II through XII grossly intact. Normal speech, gait not observed. PSYCH: Normal mood, normal affect. SKIN: Warm, dry, normal turgor, no rashes or lesions noted, Drain output light serosanguinous fluid, ~ 100cc noted Active Medications Generic Name Dose Route Start Last Admin Trade Name Freq PRN Reason Stop Dose Admin Acetaminophen 650 mg 10/14/17 14:46 10/16/17 03:32 Tylenol - PO 650 mg Q6H PRN Administration PAIN OR FEVER Atorvastatin Calcium 10 mg 10/14/17 22:00 10/15/17 21:22 Lipitor - PO 10 mg HS ERICK Administration Docusate Sodium 100 mg 10/14/17 22:00 10/15/17 21:22 Colace - PO 100 mg BID ERICK Administration Gabapentin 600 mg 10/14/17 22:00 10/16/17 06:58 Neurontin - PO 600 mg TID ERICK Administration Ondansetron HCl 4 mg 10/14/17 15:40 Zofran Injection IVPUSH Q6H PRN NAUSEA AND/OR VOMITING Oxycodone HCl 5 mg 10/14/17 14:47 10/16/17 03:33 Roxicodone - PO 5 mg Q6H PRN Administration PAIN LEVEL 6-10 ASSESSMENT/PLAN: 77 year old female with a pmh of arthropathy, BPPV, lumbar disc herniation, constipation, HLD, HTN, hemorrhoids, anemia, CKD, cholelithiasis, polycystic kidneys, hypercalcemia is admitted to the hospital after fusion of T12-S1 vertebrae #Spinal fusion T12-S1: POD6, patient improving -tylenol, neurontin for pain control -tolerating diet -Dr. Benavides input appreciated -monitor drainage output, may DC 3/3 if drainage decreases -patient voiding spontaneously #Anemia: resolved -s/p 3U PRBC #Hypophosphatemia: resolved #Hypertension: BP is stable currently -BP checks -hold BP meds for now - can give when BP increases -pt on lisinopril at home #Hyperlipidemia: stable -continue atorvastatin 10 HS if able to swallow #FEN -no standing fluids -replete lytes in AM -regular diet #Prophylaxis -SCDs #Disposition -continue to monitor on med-surg Visit type - Emergency Visit Emergency Visit: No - New Patient This patient is new to me today: No - Critical Care Critical Care patient: No
[2017-10-16] MEDS: DOCUSATE SODIUM 100 MG CAPSULE (FP) PO SCH ×2 (09:57→21:31)
[2017-10-16] MEDS: ATORVASTATIN CA 10 MG TABLET (FP) PO SCH (21:31)
[2017-10-17] MEDS: oxyCODONE HCL 5 MG TABLET PO PRN ×3 (02:09→14:05)
[2017-10-17] MEDS: GABAPENTIN 300 MG CAPSULE (FP) PO SCH ×3 (05:14→21:31)
[2017-10-17] MEDS: ACETAMINOPHEN 325 MG TABLET (FP) PO PRN ×4 (06:17→21:30)
[2017-10-17] MEDS: DOCUSATE SODIUM 100 MG CAPSULE (FP) PO SCH ×2 (09:16→21:31)
--- NOTE | 2017-10-17 11:49 | PN ---
Teaching Attending Note Name of Resident: Yury Kaur ATTENDING PHYSICIAN STATEMENT I saw and evaluated the patient. I reviewed the resident's note and discussed the case with the resident. I agree with the resident's findings and plan as documented. SUBJECTIVE: OBJECTIVE: Vital Signs Temperature 99.1 F 10/17/17 07:08 Pulse Rate 88 10/17/17 07:08 Respiratory Rate 20 10/17/17 07:08 Blood Pressure 115/69 10/17/17 07:08 O2 Sat by Pulse Oximetry (%) 90 L 10/16/17 21:00 CBCD WBC 8.0 K/mm3 (4.0-10.0) 10/15/17 07:00 RBC 3.17 M/mm3 (3.60-5.2) L 10/15/17 07:00 Hgb 9.6 GM/dL (10.7-15.3) L 10/15/17 07:00 Hct 28.6 % (32.4-45.2) L 10/15/17 07:00 MCV 90.3 fl (80-96) 10/15/17 07:00 MCHC 33.5 g/dl (32.0-36.0) 10/15/17 07:00 RDW 15.3 % (11.6-15.6) 10/15/17 07:00 Plt Count 189 K/MM3 (134-434) 10/15/17 07:00 MPV 9.3 fl (7.5-11.1) 10/15/17 07:00 CMP Sodium 140 mmol/L (136-145) 10/15/17 07:00 Potassium 4.0 mmol/L (3.5-5.1) 10/15/17 07:00 Chloride 102 mmol/L (98-107) 10/15/17 07:00 Carbon Dioxide 28 mmol/L (21-32) 10/15/17 07:00 Anion Gap 10 (8-16) 10/15/17 07:00 BUN 6 mg/dL (7-18) L 10/15/17 07:00 Creatinine 0.3 mg/dL (0.55-1.02) L 10/15/17 07:00 Creat Clearance w eGFR > 60 (>60) 10/14/17 05:55 Random Glucose 88 mg/dL (74-106) 10/15/17 07:00 Calcium 8.0 mg/dL (8.5-10.1) L 10/15/17 07:00 Total Bilirubin 0.6 mg/dL (0.2-1.0) 10/14/17 05:55 AST 20 U/L (15-37) 10/14/17 05:55 ALT 16 U/L (12-78) 10/14/17 05:55 Alkaline Phosphatase 44 U/L (45-117) L 10/14/17 05:55 Total Protein 4.8 g/dl (6.4-8.2) L 10/14/17 05:55 Albumin 2.0 g/dl (3.4-5.0) L 10/14/17 05:55 Current Medications Generic Name Dose Route Start Last Admin Trade Name Freq PRN Reason Stop Dose Admin Acetaminophen 650 mg 10/14/17 14:46 10/17/17 09:15 Tylenol - PO 650 mg Q6H PRN Administration PAIN OR FEVER Atorvastatin Calcium 10 mg 10/14/17 22:00 10/16/17 21:31 Lipitor - PO 10 mg HS ERICK Administration Docusate Sodium 100 mg 10/14/17 22:00 10/17/17 09:16 Colace - PO 100 mg BID ERICK Administration Gabapentin 600 mg 10/14/17 22:00 10/17/17 05:14 Neurontin - PO 600 mg TID ERICK Administration Ondansetron HCl 4 mg 10/14/17 15:40 Zofran Injection IVPUSH Q6H PRN NAUSEA AND/OR VOMITING Oxycodone HCl 5 mg 10/14/17 14:47 10/17/17 09:16 Roxicodone - PO 5 mg Q6H PRN Administration PAIN LEVEL 6-10 Home Medications Medication Instructions Recorded Acetaminophen [Tylenol] 650 mg PO PRN PRN 10/07/17 Gabapentin 600 mg PO TID 10/07/17 Pravastatin Sodium [Pravachol -] 40 mg PO HS 10/07/17 Hydrocortisone [Proctozone-Hc] 30 gm RC DAILY 10/10/17 Lisinopril 20 mg PO DAILY 10/10/17 Acetaminophen [Tylenol .Regular 650 mg PO Q6H PRN #30 tablet 10/17/17 Strength -] Docusate Sodium [Colace -] 100 mg PO BID #30 capsule 10/17/17 Polyethylene Glycol 3350 [Miralax 17 gm PO BID #1 bottle 10/17/17 (For Daily Use) -] Sennosides [Senna -] 2 tab PO HS #30 tablet 10/17/17 oxyCODONE HCL [Roxicodone -] 5 mg PO Q6H PRN #30 tablet MDD 30 10/17/17 ASSESSMENT AND PLAN:
--- NOTE | 2017-10-17 14:06 | DS ---
Physical Exam: SUBJECTIVE: Patient seen and examined at bedside. Drain is out. Patient is still in some pain but is able to ambulate to the bathroom. OBJECTIVE: Vital Signs Period Temp Pulse Resp BP Sys/Mayer Pulse Ox Last 24 Hr 97.4 F-99.5 F 86-94 20-20 103-115/49-69 90 PHYSICAL EXAM GENERAL: A&Ox3, no distress EYES: PERRLA, EOMI LUNGS: CTA HEART: RRR, systolic murmur noted on exam at the apex, 2/6 ABDOMEN: soft, nontender, BS present EXTREMITIES: 2+ pulses, no edema NEUROLOGICAL: Cranial nerves II through XII grossly intact. Normal speech, gait not observed. PSYCH: Normal mood, normal affect. SKIN: Warm, dry, normal turgor, no rashes or lesions noted, Drain is out. Dressing has dry serosanguinous drainage on it. HOSPITAL COURSE: Date of Admission:10/10/17 77 year old female with a past medical history of arthropathy, BPPV, lumbar disc herniation, constipation, HLD, HTN, hemorrhoids, anemia, CKD, cholelithiasis, polycystic kidneys, hypercalcemia, came to the hospital for a T12-S1 spinal fusion surgery performed by Dr. Dajuan Medrano. Patient had her pain controlled with oxycodone and managed in the ICU. The following day after surgery, patient was awake, alert and oriented and in only minimal pain. Her ayoub was removed, she tolerated clear liquid diet and was transferred to the floor. Patient was able to ambulate. Her pain was well controlled. Her MARYAM drain was draining >150cc serosanguinous drainage with no signs of purulenc. On 10/17, patient's drain came out spontaneously and she had minimal drainage on the dressing. She was discharged to acute rehab. Date of Discharge: 10/17/17 Minutes to complete discharge: 35 <Yury Kaur - Last Filed: 10/17/17 14:07> Physical Exam: Patient seen and examined, patient is being discharged to rehab. Patient is comfortable with no acute distress. Agree with the resident's note. Vital Signs Temperature 98.2 F 10/17/17 15:48 Pulse Rate 87 10/17/17 15:48 Respiratory Rate 18 10/17/17 15:48 Blood Pressure 106/57 10/17/17 15:48 O2 Sat by Pulse Oximetry (%) 94 L 10/17/17 09:00 CBCD WBC 8.0 K/mm3 (4.0-10.0) 10/15/17 07:00 RBC 3.17 M/mm3 (3.60-5.2) L 10/15/17 07:00 Hgb 9.6 GM/dL (10.7-15.3) L 10/15/17 07:00 Hct 28.6 % (32.4-45.2) L 10/15/17 07:00 MCV 90.3 fl (80-96) 10/15/17 07:00 MCHC 33.5 g/dl (32.0-36.0) 10/15/17 07:00 RDW 15.3 % (11.6-15.6) 10/15/17 07:00 Plt Count 189 K/MM3 (134-434) 10/15/17 07:00 MPV 9.3 fl (7.5-11.1) 10/15/17 07:00 CMP Sodium 140 mmol/L (136-145) 10/15/17 07:00 Potassium 4.0 mmol/L (3.5-5.1) 10/15/17 07:00 Chloride 102 mmol/L (98-107) 10/15/17 07:00 Carbon Dioxide 28 mmol/L (21-32) 10/15/17 07:00 Anion Gap 10 (8-16) 10/15/17 07:00 BUN 6 mg/dL (7-18) L 10/15/17 07:00 Creatinine 0.3 mg/dL (0.55-1.02) L 10/15/17 07:00 Creat Clearance w eGFR > 60 (>60) 10/14/17 05:55 Random Glucose 88 mg/dL (74-106) 10/15/17 07:00 Calcium 8.0 mg/dL (8.5-10.1) L 10/15/17 07:00 Total Bilirubin 0.6 mg/dL (0.2-1.0) 10/14/17 05:55 AST 20 U/L (15-37) 10/14/17 05:55 ALT 16 U/L (12-78) 10/14/17 05:55 Alkaline Phosphatase 44 U/L (45-117) L 10/14/17 05:55 Total Protein 4.8 g/dl (6.4-8.2) L 10/14/17 05:55 Albumin 2.0 g/dl (3.4-5.0) L 10/14/17 05:55 Current Medications Generic Name Dose Route Start Last Admin Trade Name Freq PRN Reason Stop Dose Admin Acetaminophen 650 mg 10/14/17 14:46 10/17/17 14:04 Tylenol - PO 650 mg Q6H PRN Administration PAIN OR FEVER Atorvastatin Calcium 10 mg 10/14/17 22:00 10/16/17 21:31 Lipitor - PO 10 mg HS ERICK Administration Docusate Sodium 100 mg 10/14/17 22:00 10/17/17 09:16 Colace - PO 100 mg BID ERICK Administration Gabapentin 600 mg 10/14/17 22:00 10/17/17 14:04 Neurontin - PO 600 mg TID ERICK Administration Ondansetron HCl 4 mg 10/14/17 15:40 Zofran Injection IVPUSH Q6H PRN NAUSEA AND/OR VOMITING Home Medications Medication Instructions Recorded Acetaminophen [Tylenol] 650 mg PO PRN PRN 10/07/17 Gabapentin 600 mg PO TID 10/07/17 Pravastatin Sodium [Pravachol -] 40 mg PO HS 10/07/17 Hydrocortisone [Proctozone-Hc] 30 gm RC DAILY 10/10/17 Lisinopril 20 mg PO DAILY 10/10/17 Acetaminophen [Tylenol .Regular 650 mg PO Q6H PRN #30 tablet 10/17/17 Strength -] Docusate Sodium [Colace -] 100 mg PO BID #30 capsule 10/17/17 Polyethylene Glycol 3350 [Miralax 17 gm PO BID #1 bottle 10/17/17 (For Daily Use) -] Sennosides [Senna -] 2 tab PO HS #30 tablet 10/17/17 oxyCODONE HCL [Roxicodone -] 5 mg PO Q6H PRN #30 tablet MDD 30 10/17/17 <Sheldon Montenegro - Last Filed: 10/17/17 16:54> Discharge Summary Reason For Visit: SPINAL STENOSIS, LUMBAR REGION WITHOUT NEUROGENIC Current Active Problems Back pain (Acute) Benign positional vertigo (Acute) CKD (chronic kidney disease) (Acute) H/O spinal fusion (Acute) HLD (hyperlipidemia) (Acute) HTN (hypertension) (Acute) Hemorrhoid (Acute) Spinal stenosis of lumbar region (Acute) - Home Medications Comprehensive Discharge Medication List: Ambulatory Orders Acetaminophen [Tylenol] 650 mg PO PRN PRN 10/07/17 Gabapentin 600 mg PO TID 10/07/17 Pravastatin Sodium [Pravachol -] 40 mg PO HS 10/07/17 Hydrocortisone [Proctozone-Hc] 30 gm RC DAILY 10/10/17 Lisinopril 20 mg PO DAILY 10/10/17 Acetaminophen [Tylenol .Regular Strength -] 650 mg PO Q6H PRN #30 tablet Docusate Sodium [Colace -] 100 mg PO BID #30 capsule 10/17/17 Polyethylene Glycol 3350 [Miralax (For Daily Use) -] 17 gm PO BID #1 bottle 12/30 Sennosides [Senna -] 2 tab PO HS #30 tablet 10/17/17 oxyCODONE HCL [Roxicodone -] 5 mg PO Q6H PRN #30 tablet MDD 30 10/17/17 <Yury Kaur - Last Filed: 10/17/17 14:07> Current Active Problems Back pain (Acute) Benign positional vertigo (Acute) CKD (chronic kidney disease) (Acute) H/O spinal fusion (Acute) HLD (hyperlipidemia) (Acute) HTN (hypertension) (Acute) Hemorrhoid (Acute) Spinal stenosis of lumbar region (Acute) - Home Medications Comprehensive Discharge Medication List: Ambulatory Orders Acetaminophen [Tylenol] 650 mg PO PRN PRN 10/07/17 Gabapentin 600 mg PO TID 10/07/17 Pravastatin Sodium [Pravachol -] 40 mg PO HS 10/07/17 Hydrocortisone [Proctozone-Hc] 30 gm RC DAILY 10/10/17 Lisinopril 20 mg PO DAILY 10/10/17 Acetaminophen [Tylenol .Regular Strength -] 650 mg PO Q6H PRN #30 tablet Docusate Sodium [Colace -] 100 mg PO BID #30 capsule 10/17/17 Polyethylene Glycol 3350 [Miralax (For Daily Use) -] 17 gm PO BID #1 bottle 12/30 Sennosides [Senna -] 2 tab PO HS #30 tablet 10/17/17 oxyCODONE HCL [Roxicodone -] 5 mg PO Q6H PRN #30 tablet MDD 30 10/17/17 <Sheldon Montenegro - Last Filed: 10/17/17 16:54> Condition: Improved - Instructions Diet, Activity, Other Instructions: You were admitted to the hospital for posterior lamienctomy/decompression of T12 -S1 with interbody fusion procedure with Dr. Medrano. Medical Recommendations: Have your dressings changed daily Continue to wear Teds stockings to prevent clots For Pain: -Continue taking Tylenol 650mg by mouth every 6 hours as needed for pain -Continue taking Oxycodone 5mg by mouth every 6 hours as needed for pain For Constipation: -Continue taking Colace 100mg by mouth three times a day as needed for constipation -Continue taking Senna 2 tablets by mouth at night for constipation -Please take miralax 2x a day for constipation Referrals -Make an appointment with the surgeon Dr. Dajuan Medrano this week for followup ( [phone]) -Make an appointment with the primary care physician within 1 week of discharge. If you experience severe pain, fevers, chills, nausea, vomiting, diarrhea, please return to the emergency room immediately Referrals: Dajuan Medrano MD [Staff Physician] - Disposition: SENIOR CARE FACILITY This patient is new to me today: No Emergency Visit: No Critical Care patient: No - Discharge Referral Referred to [facility] Med P.C.: No <Yury Kaur - Last Filed: 10/17/17 14:07>
--- NOTE | 2017-10-17 15:19 | PN ---
Progress Note (short form) - Note Progress Note: As per [facility] staff, the pts drain fell out today. It was left at bedside and is intact. She is oob and ambulating. No nausea or emesis and is passing flatus , with small bm. No headaches. Vital Signs Period Temp Pulse Resp BP Sys/Mayer Pulse Ox Last 24 Hr 98.5 F-99.5 F 85-88 16-20 105-115/58-69 90-94 MARYAM-52 serosangrenous GEN: appears comfortable Back: Inc c/d/i with andrew. No erythema or drainage noted. ABD: soft, slight distended, on-tender LE: 5/5 dorsi/plantar flexion CBC, BMP 03//18 07:00 10/15/18 07:00 A/P: 77 yo female s/p T12-S1 posterior decompression/laminecotmy with interbody fusion L4/L5 and L5/S1, POD#7 patient doing well, awaiting discharge to [facility](rehab) Incision to have dry dressing and covered at all times Return to the office in two weeks for staple removal Keep incision clean/dry. Sponge bath only D/w Dr. Medrano Continue stool softner, dulcolax suppository
[2017-10-17] MEDS: ATORVASTATIN CA 10 MG TABLET (FP) PO SCH (21:31)
[2017-10-17] MEDS ORDERED: oxyCODONE HCL 5 MG TABLET PO ONE (21:38)
[2017-10-18] MEDS ORDERED: oxyCODONE HCL 5 MG TABLET PO ONE (02:38)
[2017-10-18] MEDS: ACETAMINOPHEN 325 MG TABLET (FP) PO PRN ×3 (02:50→16:07)
[2017-10-18] MEDS: GABAPENTIN 300 MG CAPSULE (FP) PO SCH ×3 (06:28→21:05)
[2017-10-18] MEDS ORDERED: oxyCODONE HCL 5 MG TABLET PO PRN (06:44)
--- NOTE | 2017-10-18 06:47 | PN ---
Physical Exam: SUBJECTIVE: Patient seen and examined at bedside. No acute overnight events. OBJECTIVE: Vital Signs Period Temp Pulse Resp BP Sys/Mayer Pulse Ox Last 24 Hr 98.2 F-99.2 F 79-88 16-20 105-128/57-94 94-94 GENERAL: A&Ox3, no distress EYES: PERRLA, EOMI LUNGS: CTA HEART: RRR, systolic murmur noted on exam at the apex, 2/6 ABDOMEN: soft, nontender, BS present EXTREMITIES: 2+ pulses, no edema NEUROLOGICAL: Cranial nerves II through XII grossly intact. Normal speech, gait not observed. PSYCH: Normal mood, normal affect. SKIN: Warm, dry, normal turgor, no rashes or lesions noted, Drain is out. Active Medications Generic Name Dose Route Start Last Admin Trade Name Freq PRN Reason Stop Dose Admin Acetaminophen 650 mg 10/14/17 14:46 10/18/17 02:50 Tylenol - PO 650 mg Q6H PRN Administration PAIN OR FEVER Atorvastatin Calcium 10 mg 10/14/17 22:00 10/17/17 21:31 Lipitor - PO 10 mg HS ERICK Administration Docusate Sodium 100 mg 10/14/17 22:00 10/17/17 21:31 Colace - PO 100 mg BID ERICK Administration Gabapentin 600 mg 10/14/17 22:00 10/18/17 06:28 Neurontin - PO 600 mg TID ERICK Administration Ondansetron HCl 4 mg 10/14/17 15:40 Zofran Injection IVPUSH Q6H PRN NAUSEA AND/OR VOMITING Oxycodone HCl 5 mg 10/18/17 09:00 Roxicodone - PO Q6H PRN PAIN LEVEL 6-10 ASSESSMENT/PLAN: 77 year old female with a pmh of arthropathy, BPPV, lumbar disc herniation, constipation, HLD, HTN, hemorrhoids, anemia, CKD, cholelithiasis, polycystic kidneys, hypercalcemia is admitted to the hospital after fusion of T12-S1 vertebrae #Spinal fusion T12-S1: POD8, patient improving -tylenol, neurontin, oxycodone for pain control -tolerating diet -Dr. Benavides input appreciated -monitor drainage output, may DC 3/3 if drainage decreases -patient voiding spontaneously #Anemia: resolved -s/p 3U PRBC #Hypophosphatemia: resolved #Hypertension: BP is stable currently -BP checks -hold BP meds for now - can give when BP increases -pt on lisinopril at home #Hyperlipidemia: stable -continue atorvastatin 10 HS if able to swallow #FEN -no standing fluids -replete lytes in AM -regular diet #Prophylaxis -SCDs #Disposition -discharge today Visit type - Emergency Visit Emergency Visit: No - New Patient This patient is new to me today: No - Critical Care Critical Care patient: No
[2017-10-18] MEDS: oxyCODONE HCL 5 MG TABLET PO PRN ×2 (09:08→16:04)
[2017-10-18] MEDS: DOCUSATE SODIUM 100 MG CAPSULE (FP) PO SCH ×2 (09:08→21:05)
[2017-10-18] MEDS ORDERED: INSULIN (NOVOLOG) ASPART 100 UNITS/ML 10ML VIAL ONE (09:55)
[2017-10-18] MEDS ORDERED: INSULIN DETEMIR 100 UNITS/ML MDV SQ ONE (09:55)
[2017-10-18] MEDS ORDERED: BISACODYL 10 MG SUPP.RECT RC ONE (12:30)
[2017-10-18] MEDS: ATORVASTATIN CA 10 MG TABLET (FP) PO SCH (21:05)
[2017-10-19] MEDS: ACETAMINOPHEN 325 MG TABLET (FP) PO PRN ×3 (04:51→18:32)
[2017-10-19] MEDS: oxyCODONE HCL 5 MG TABLET PO PRN ×3 (04:52→18:32)
[2017-10-19] MEDS: GABAPENTIN 300 MG CAPSULE (FP) PO SCH ×3 (05:20→22:00)
[2017-10-19] MEDS: DOCUSATE SODIUM 100 MG CAPSULE (FP) PO SCH ×2 (09:40→22:00)
--- NOTE | 2017-10-19 14:57 | PN ---
Physical Exam: SUBJECTIVE: No acute changes. OBJECTIVE: Vital Signs Period Temp Pulse Resp BP Sys/Mayer Pulse Ox Last 24 Hr 98.1 F-99.3 F 85-98 18-20 103-123/59-68 94 GENERAL: A&Ox3, no distress EYES: PERRLA, EOMI LUNGS: CTA HEART: RRR, systolic murmur noted on exam at the apex, 2/6 ABDOMEN: soft, nontender, BS present EXTREMITIES: 2+ pulses, no edema NEUROLOGICAL: Cranial nerves II through XII grossly intact. Normal speech, gait not observed. PSYCH: Normal mood, normal affect. SKIN: Warm, dry, normal turgor, no rashes or lesions noted, Drain is out. Active Medications Generic Name Dose Route Start Last Admin Trade Name Freq PRN Reason Stop Dose Admin Acetaminophen 650 mg 10/14/17 14:46 10/19/17 11:28 Tylenol - PO 650 mg Q6H PRN Administration PAIN OR FEVER Atorvastatin Calcium 10 mg 10/14/17 22:00 10/18/17 21:05 Lipitor - PO 10 mg HS ERICK Administration Docusate Sodium 100 mg 10/14/17 22:00 10/19/17 09:40 Colace - PO 100 mg BID ERICK Administration Gabapentin 600 mg 10/14/17 22:00 10/19/17 14:52 Neurontin - PO 600 mg TID ERICK Administration Ondansetron HCl 4 mg 10/14/17 15:40 Zofran Injection IVPUSH Q6H PRN NAUSEA AND/OR VOMITING Oxycodone HCl 5 mg 10/18/17 09:00 10/19/17 11:27 Roxicodone - PO 5 mg Q6H PRN Administration PAIN LEVEL 6-10 ASSESSMENT/PLAN: 77 year old female with a pmh of arthropathy, BPPV, lumbar disc herniation, constipation, HLD, HTN, hemorrhoids, anemia, CKD, cholelithiasis, polycystic kidneys, hypercalcemia is admitted to the hospital after fusion of T12-S1 vertebrae #Spinal fusion T12-S1: POD9, patient improving -tylenol, neurontin, oxycodone for pain control -tolerating diet -Dr. Benavides input appreciated -no drain -patient voiding spontaneously #Anemia: resolved -s/p 3U PRBC #Hypophosphatemia: resolved #Hypertension: BP is stable currently -BP checks -hold BP meds for now - can give when BP increases -pt on lisinopril at home #Hyperlipidemia: stable -continue atorvastatin 10 HS if able to swallow #FEN -no standing fluids -replete lytes in AM -regular diet #Prophylaxis -SCDs #Disposition -discharge today Visit type - Emergency Visit Emergency Visit: No - New Patient This patient is new to me today: No - Critical Care Critical Care patient: No
--- NOTE | 2017-10-19 16:47 | PN ---
Teaching Attending Note Name of Resident: Yury Kaur ATTENDING PHYSICIAN STATEMENT I saw and evaluated the patient. I reviewed the resident's note and discussed the case with the resident. I agree with the resident's findings and plan as documented. SUBJECTIVE: No fever or chills. has back pain, no weakness, numbness tingling in LE OBJECTIVE: NAD. CV: RRR, no MRG, no JVD Lungs: CTAB Ext: no edema or erythema , 2+ Dp b/l MS: surgical dressing on T and L spine ,removed with clean wounds with andrew Neuro of LE: RLE: Hip flexion 4/5 . knee flexion and extension , ankle dorsiflexion and plantar flexion 5/5 LLE: hip flexion 4/5 . knee flexionand extension , ankle drsiflexion and plantar flexion 5/5 Knee jerk cold not obtain due to pt position and not being relaxed nl sensation to light touch . ASSESSMENT AND PLAN: Mrs. Guillen is a 77 y/o lady with h/o HTN, CKD , neuropathy,polycystic kidneys , constipation , hemorrhoids, herniated disks, and other medical problems who presented for decompresion of T12-S1. 1- S/P decompression and fusion of T12-S1. stable and improved neuro exam compared to last eval. clean wound - cont pain control and PT - f/u with Dr. Medrano in 1 week - dressing change with clean gauze daily 2- Hypotension:resolved can cont her HTN med as out pt 3- Acute blood loss anemia : - stable HB after transfusion dispo : dc to rehab today if bed available
[2017-10-19] MEDS ORDERED: PT OWN MED DRAWER 7, Y5N ONE ×2 (20:28→22:32)
[2017-10-19] MEDS: ATORVASTATIN CA 10 MG TABLET (FP) PO SCH (22:00)
[2017-10-20] MEDS: ACETAMINOPHEN 325 MG TABLET (FP) PO PRN ×3 (00:08→17:24)
[2017-10-20] MEDS: oxyCODONE HCL 5 MG TABLET PO PRN ×4 (00:09→17:24)
[2017-10-20] MEDS ORDERED: PT OWN MED DRAWER 7, Y5N ONE ×2 (05:12→13:21)
[2017-10-20] MEDS: GABAPENTIN 300 MG CAPSULE (FP) PO SCH ×2 (05:15→13:59)
--- NOTE | 2017-10-20 08:03 | PN ---
Physical Exam: SUBJECTIVE: Patient seen and examined at bedside. No acute changes overnight. OBJECTIVE: Vital Signs Period Temp Pulse Resp BP Sys/Mayer Pulse Ox Last 24 Hr 98.2 F-99.2 F 84-92 18-20 111-150/59-88 96-96 GENERAL: A&Ox3, no distress EYES: PERRLA, EOMI LUNGS: CTA HEART: RRR, systolic murmur noted on exam at the apex, 2/6 ABDOMEN: soft, nontender, BS present EXTREMITIES: 2+ pulses, no edema, ROM restricted due to pain NEUROLOGICAL: Cranial nerves II through XII grossly intact. Normal speech, gait not observed. PSYCH: Normal mood, normal affect. SKIN: Warm, dry, normal turgor, no rashes or lesions noted, Drain is out. Active Medications Generic Name Dose Route Start Last Admin Trade Name Freq PRN Reason Stop Dose Admin Acetaminophen 650 mg 10/14/17 14:46 10/20/17 00:08 Tylenol - PO 650 mg Q6H PRN Administration PAIN OR FEVER Atorvastatin Calcium 10 mg 10/14/17 22:00 10/19/17 22:00 Lipitor - PO 10 mg HS ERICK Administration Docusate Sodium 100 mg 10/14/17 22:00 10/19/17 22:00 Colace - PO 100 mg BID ERICK Administration Gabapentin 600 mg 10/14/17 22:00 10/20/17 05:15 Neurontin - PO 600 mg TID ERICK Administration Ondansetron HCl 4 mg 10/14/17 15:40 Zofran Injection IVPUSH Q6H PRN NAUSEA AND/OR VOMITING Oxycodone HCl 5 mg 10/18/17 09:00 10/20/17 00:09 Roxicodone - PO 5 mg Q6H PRN Administration PAIN LEVEL 6-10 ASSESSMENT/PLAN: 77 year old female with a pmh of arthropathy, BPPV, lumbar disc herniation, constipation, HLD, HTN, hemorrhoids, anemia, CKD, cholelithiasis, polycystic kidneys, hypercalcemia is admitted to the hospital after fusion of T12-S1 vertebrae #Spinal fusion T12-S1: POD10, patient improving -tylenol, neurontin, oxycodone for pain control -tolerating diet -Dr. Benavides input appreciated -no drain -patient voiding spontaneously #Anemia: resolved -s/p 3U PRBC #Hypophosphatemia: resolved #Hypertension: BP is stable currently -BP checks -hold BP meds for now - can give when BP increases -pt on lisinopril at home #Hyperlipidemia: stable -continue atorvastatin 10 HS if able to swallow #FEN -no standing fluids -replete lytes in AM -regular diet #Prophylaxis -SCDs #Disposition -patient has been discharged Visit type - Emergency Visit Emergency Visit: No - New Patient This patient is new to me today: No - Critical Care Critical Care patient: No
[2017-10-20] MEDS: DOCUSATE SODIUM 100 MG CAPSULE (FP) PO SCH (10:03)
[2017-10-20 14:23] VITALS: BP 119/67; PULSE 91; TEMP 98.5
--- NOTE | 2017-10-20 15:02 | PN ---
Teaching Attending Note Name of Resident: Yury Kaur ATTENDING PHYSICIAN STATEMENT I saw and evaluated the patient. I reviewed the resident's note and discussed the case with the resident. I agree with the resident's findings and plan as documented. SUBJECTIVE: No fever or chills. No abd pain. back pain and difficulty ambulating OBJECTIVE: NAD. CV: RRR, no MRG, no JVD Lungs: CTAB Ext: no edema or erythema MS: surgical dressing on T and L spine ,removed with clean wounds with andrew Neuro of LE: RLE: Hip flexion 5/5 . knee flexion and extension , ankle dorsiflexion and plantar flexion 5/5 LLE: hip flexion 5/5 . knee flexionand extension , ankle drsiflexion and plantar flexion 5/5 Knee jerk cold not obtain due to pt position and not being relaxed nl sensation to light touch . ASSESSMENT AND PLAN: Mrs. Guillen is a 77 y/o lady with h/o HTN, CKD , neuropathy,polycystic kidneys , constipation , hemorrhoids, herniated disks, and other medical problems who presented for decompresion of T12-S1. 1- S/P decompression and fusion of T12-S1. stable and improved neuro exam compared to last eval. clean wound - cont pain control and PT - f/u with Dr. Medrano in 1 week - dressing change with clean gauze daily - andrew evaluation by Dr. Medrano 2- Hypotension:resolved can cont her HTN med as out pt 3- Acute blood loss anemia : - stable HB after transfusion dispo :dc to rehab today
[2017-10-20] MEDS ORDERED: POLYETHYLENE GLYCOL 3350 119 GM BTL PO SCH (22:00)
== END 2017-10-20 22:04 | DRG 460 ==
LOC: JSAMEDAYSX 06:07 → EDSTATUS 08:00 → JICU 21:07 → J8W 10-14 15:53
PROVIDERS: ADMIT Internal Medicine; ATTEND Internal Medicine
PROC: 0SB40ZZ Excision of Lumbosacral Disc, Open Approach (ICD-10-PCS; 2017-10-10)
PROC: 01NB0ZZ Release Lumbar Nerve, Open Approach (ICD-10-PCS; 2017-10-10)
PROC: 01N80ZZ Release Thoracic Nerve, Open Approach (ICD-10-PCS; 2017-10-10)
PROC: 0SB40ZZ Excision of Lumbosacral Disc, Open Approach (ICD-10-PCS; 2017-10-10)
PROC: 0SB20ZZ Excision of Lumbar Vertebral Disc, Open Approach (ICD-10-PCS; 2017-10-10)
PROC: 0SG00J1 Fusion of Lumbar Vertebral Joint with Synthetic Substitute, Posterior Approach, Posterior Column, Open Approach (ICD-10-PCS; 2017-10-10)
PROC: 0SG30J1 Fusion of Lumbosacral Joint with Synthetic Substitute, Posterior Approach, Posterior Column, Open Approach (ICD-10-PCS; 2017-10-10)
PROC: 30233N1 Transfusion of Nonautologous Red Blood Cells into Peripheral Vein, Percutaneous Approach (ICD-10-PCS; 2017-10-10)
PROC: 0RGA0J1 Fusion of Thoracolumbar Vertebral Joint with Synthetic Substitute, Posterior Approach, Posterior Column, Open Approach (ICD-10-PCS; principal; 2017-10-10 08:00)
DX: M48.07 Spinal stenosis, lumbosacral region (principal); M96.830 Postprocedural hemorrhage of a musculoskeletal structure following a musculoskeletal system procedure; D62 Acute posthemorrhagic anemia; Q61.3 Polycystic kidney, unspecified; J98.11 Atelectasis; M48.05 Spinal stenosis, thoracolumbar region; I95.9 Hypotension, unspecified; I12.9 Hypertensive chronic kidney disease with stage 1 through stage 4 chronic kidney disease, or unspecified chronic kidney disease; N18.9 Chronic kidney disease, unspecified; E83.39 Other disorders of phosphorus metabolism; E78.5 Hyperlipidemia, unspecified; R33.9 Retention of urine, unspecified; R50.82 Postprocedural fever; Y83.9 Surgical procedure, unspecified as the cause of abnormal reaction of the patient, or of later complication, without mention of misadventure at the time of the procedure
CPT/HCPCS: 36415; 36430; 71045-TC-FY; 76000-TC-FY; 80048; 80053; 83735; 84100; 85025; 85027; 86850; 86900; 86901; 86922; 88304-TC; 94760; 97116-GP; 97162-GP; J1170; J1644; P9038; P9058

== ENCOUNTER 2018-05-03 12:00 | Inpatient (IN) | payer OTHER ==
[2018-05-10] MEDS ORDERED: ROPIVICAINE 0.2%/MORPH PF/KETOROLAC - 51ML DISP.SYRINGE IA ONE (07:21)
[2018-05-10] MEDS ORDERED: TRANEXAMIC ACID 1000 MG/10 ML VIAL IVPUSH ONE (07:21)
[2018-05-10] MEDS ORDERED: CEFAZOLIN 1 GM/D5W 1 GRAM/50 ML BAG IVPB ONE (07:21)
[2018-05-10] MEDS ORDERED: DEXAMETHASONE SOD PHOSPHATE 4 MG/1 ML VIAL ONE ×2 (11:34→14:28)
[2018-05-10] MEDS ORDERED: LIDOCAINE HCL/PF 2% SDV 5ML VIAL ONE (11:34)
[2018-05-10] MEDS ORDERED: GLYCOPYRROLATE 0.2 MG/1 ML VIAL ONE (11:34)
[2018-05-10] MEDS ORDERED: ONDANSETRON 4 MG/2 ML VIAL ONE ×2 (11:34→14:28)
[2018-05-10] MEDS: GABAPENTIN 300 MG CAPSULE (FP) PO ONE ×2 (11:55→18:51)
[2018-05-10] MEDS: CELECOXIB 200 MG CAPSULE PO ONE ×2 (11:55→18:51)
[2018-05-10] MEDS ORDERED: MIDAZOLAM HCL 2 MG/2 ML SINGLE DOSE VIAL ONE (13:32)
[2018-05-10] MEDS ORDERED: BUPIVACAINE LIPOSOME/PF (EXPAREL) 266 MG/20 ML VIAL ONE (13:33)
[2018-05-10] MEDS ORDERED: EPINEPHrine/PF 1 MG/1 ML (1:1,000) AMPULE ONE (14:01)
[2018-05-10] MEDS ORDERED: KETOROLAC TROMETHAMINE 60 MG/2 ML VIAL ONE (14:02)
[2018-05-10] MEDS ORDERED: SODIUM CHLORIDE 0.9% P/F 10 ML VIAL IJ ONE (14:03)
[2018-05-10] MEDS ORDERED: BUPIVACAINE HCL/PF 2.5 MG/ML - 30 ML VIAL IJ ONE (14:03)
[2018-05-10] MEDS ORDERED: morphine CARPU-JECT 10 MG/1 ML DISP.SYRIN ONE (14:03)
[2018-05-10] MEDS ORDERED: ceFAZolin SODIUM 1 GM VIAL ONE (14:28)
[2018-05-10] MEDS ORDERED: SUCCINYLCHOLINE CHLORIDE 200 MG/10 ML VIAL ONE (14:28)
[2018-05-10] MEDS ORDERED: TRANEXAMIC ACID 1000 MG/10 ML VIAL ONE ×2 (14:28→16:07)
[2018-05-10] MEDS ORDERED: ePHEDrine SULFATE 50 MG/1 ML AMPULE ONE (14:45)
[2018-05-10] MEDS ORDERED: VANCOMYCIN 1,000 MG VIAL (RESTRICTED TO ID ONLY) ONE (16:07)
--- NOTE | 2018-05-10 16:17 | PN ---
Progress Note (short form) - Note Progress Note: 78F s/p RIGHT total knee replacement POD #0. -Pain control. -DVT PPx: -Chemical: ASA 81mg PO BID x 6 weeks. -Mechanical: LESLEY's, SCD's. -Incentive spirometry q15 min. -PT/OT/Rehab, OOB. -WBAT RLE. -Antibiotics: Ancef x 2 post op doses. -f/u post-op trial of void. -Diet as tolerated. -Keep dressing clean & dry. -Care per medical hospitalist team. -f/u [facility] [place] office 05/18/2018; call for appointment; . -Will follow. Dajuan Medrano MD (Orthopaedic Surgery).
[2018-05-10] MEDS ORDERED: MAG HYDROX/AL HYDROX/SIMETH 30 ML UNIT-DOSE CUP PO PRN (16:20)
[2018-05-10] MEDS ORDERED: MAGNESIUM HYDROX 2400MG/30ML ORAL SUSPENSION 30 ML CUP PO PRN (16:20)
[2018-05-10] MEDS ORDERED: ONDANSETRON 4 MG/2 ML VIAL IVPUSH PRN ×2 (16:20→16:52)
--- NOTE | 2018-05-10 16:20 | OP ---
Operative Note - Note: Operative Date: 05/10/18 Pre-Operative Diagnosis: Right knee DJD Operation: Right total knee replacement Implants: Aidee Triathlon. Femur - 4. Tibia - 3. Poly - 11mm, TS. Patella - 27mm Surgeon: Dajuan Medrano [facility] [employer] Advisors: Diego Medrano Anesthesiologist/SENIOR CONSTRUCTION ESTIMATOR: Yonatan Wolff Anesthesia: Spinal Specimens Removed: Bone, soft tissue Estimated Blood Loss (mls): 0 Drains & Tubes with Location: 1 x deep HemoVac Fluid Volume Replaced (mls): 1,000 Operative Report Dictated: Yes
[2018-05-10] MEDS ORDERED: BENZOIN/ALOE VERA/STORAX/TOLU 58 ML BOTTLE ONE (16:23)
[2018-05-10] MEDS ORDERED: LACTATED RINGERS SOLUTION 1,000 ML IV SCH (16:30)
[2018-05-10] MEDS ORDERED: oxyCODONE HCL 5 MG TABLET PO PRN (16:52)
[2018-05-10] MEDS ORDERED: PROMETHAZINE HCL 25 MG/1 ML VIAL IVPUSH PRN (16:52)
[2018-05-10] MEDS ORDERED: ACETAMINOPHEN 325 MG TABLET (FP) ONE (16:55)
[2018-05-10] MEDS ORDERED: ACETAMINOPHEN 325 MG TABLET (FP) PO ONE (17:00)
[2018-05-10] MEDS: ACETAMINOPHEN 325 MG TABLET (FP) PO SCH ×2 (18:52→22:08)
[2018-05-10] MEDS: ASPIRIN 81 MG CHEWABLE TABLETS PO SCH (21:24)
[2018-05-10] MEDS: SENNOSIDES/DOCUSATE COMBO (SENNA PLUS) TABLET (UD) PO SCH (21:24)
[2018-05-10] MEDS: CEFAZOLIN 1 GM/D5W 1 GM/50 ML BAG IVPB SCH (22:09)
[2018-05-11] MEDS: oxyCODONE HCL 5 MG TABLET PO PRN ×3 (02:27→22:00)
[2018-05-11] MEDS: ACETAMINOPHEN 325 MG TABLET (FP) PO SCH ×4 (04:38→22:59)
[2018-05-11] MEDS: CEFAZOLIN 1 GM/D5W 1 GM/50 ML BAG IVPB SCH (06:26)
--- NOTE | 2018-05-11 07:42 | PN ---
Progress Note (short form) - Note Progress Note: POD #1 s/p Right total knee replacement Sitting in chair at bedside. C/o mild incisional tenderness. Adequate pain control with prn meds. Denies n/v/f/c, CP, SOB or WHITNEY. Hasn't ambulated with PT yet. Last Vital Signs Temp Pulse Resp BP Pulse Ox 97.7 F 88 19 120/71 100 05/11/18 06:00 05/11/18 06:00 05/11/18 06:00 05/11/18 06:00 05/11/18 06:57 Gen: alert. nad. Pulm: CTA bilat Cor: RRR LE: LLE unremarkable. RLE: in recliner with leg in full extension. Ice pack in place. Alexy wrap from toes to mid thigh in place. Hemovac 40mL (sanguinous). Palpable DP 2+. Actively ~ 70 degrees of flexion Problem List - Problems (1) Right knee DJD Assessment/Plan: POD #1 s/p Right TKR Physical therapy today Cont pain management DVT PPx: ASA 81mg PO BID x6 weeks, TEDS/SCDs Incentive spirometer WBAT RLE Cont care as per medicine Hemovac to be dc'd tomrrow while on rounds DC planning 05/12 f/u with [facility] [place] office - call for an appointment Above plan discussed with Dr. Diego Medrano and agrees. Code(s): M17.11 - UNILATERAL PRIMARY OSTEOARTHRITIS, RIGHT KNEE
--- NOTE | 2018-05-11 07:47 | CONSULT ---
Consultation: REQUESTING PROVIDER: Dr Medrano CONSULT REQUEST: We have been asked to medically evaluate this patient for medical management. HISTORY OF PRESENT ILLNESS: Patient is a 78-year-old female, with a past medical history of Hypertension, hyperlipidemia,osteoarthritis. Patient is S/P ight total knee replacement, spinal anesthesia, Dr Medrano REVIEW OF SYSTEMS: CONSTITUTIONAL: Absent: fever, chills, diaphoresis, generalized weakness, malaise, loss of appetite, weight change HEENT: Absent: rhinorrhea, nasal congestion, throat pain, throat swelling, difficulty swallowing, mouth swelling, ear pain, eye pain, visual changes CARDIOVASCULAR: Absent: chest pain, syncope, palpitations, irregular heart rate, lightheadedness , peripheral edema RESPIRATORY: Absent: cough, shortness of breath, dyspnea with exertion, orthopnea, wheezing, stridor, hemoptysis GASTROINTESTINAL: Absent: abdominal pain, abdominal distension, nausea, vomiting, diarrhea, constipation, melena, hematochezia GENITOURINARY: Absent: dysuria, frequency, urgency, hesitancy, hematuria, flank pain, genital pain MUSCULOSKELETAL: Present: right knee pain Absent: myalgia, arthralgia, joint swelling, back pain, neck pain SKIN: Absent: rash, itching, pallor HEMATOLOGIC/IMMUNOLOGIC: Absent: easy bleeding, easy bruising, lymphadenopathy, frequent infections ENDOCRINE: Absent: unexplained weight gain, unexplained weight loss, heat intolerance, cold intolerance NEUROLOGIC: Absent: headache, focal weakness or paresthesias, dizziness, unsteady gait, seizure, mental status changes, bladder or bowel incontinence PSYCHIATRIC: Absent: anxiety, depression, suicidal or homicidal ideation, hallucinations. PHYSICAL EXAMINATION Vital Signs - 24 hr 05/10/18 05/10/18 05/10/18 11:53 16:42 16:47 Temperature 98.4 F 97.2 F L Pulse Rate 96 H 90 88 Respiratory 20 16 16 Rate Blood Pressure 140/74 147/86 133/91 O2 Sat by Pulse 98 98 Oximetry (%) 05/10/18 05/10/18 05/10/18 16:52 16:57 17:12 Temperature Pulse Rate 85 85 91 H Respiratory 18 16 16 Rate Blood Pressure 142/82 147/82 147/94 O2 Sat by Pulse 98 98 98 Oximetry (%) 05/10/18 05/10/18 05/10/18 17:25 17:40 17:50 Temperature 97.2 F L Pulse Rate 86 84 84 Respiratory 14 12 12 Rate Blood Pressure 155/93 136/86 136/86 O2 Sat by Pulse 98 100 Oximetry (%) 05/10/18 05/10/18 05/11/18 18:20 22:00 00:28 Temperature 97.8 F 98.3 F Pulse Rate 83 92 H Respiratory 16 19 Rate Blood Pressure 148/87 114/69 O2 Sat by Pulse 94 L 98 Oximetry (%) 05/11/18 05/11/18 05/11/18 02:00 06:00 06:57 Temperature 97.8 F 97.7 F Pulse Rate 85 88 Respiratory 17 19 Rate Blood Pressure 120/72 120/71 O2 Sat by Pulse 99 100 Oximetry (%) GENERAL: Awake, alert, and fully oriented, in no acute distress. HEAD: Normal with no signs of trauma. EYES: Pupils equal, round and reactive to light, extraocular movements intact, sclera anicteric, conjunctiva clear. No lid lag. EARS, NOSE, THROAT: Ears normal, nares patent, oropharynx clear without exudates. Moist mucous membranes. NECK: Normal range of motion, supple without lymphadenopathy, JVD, or masses. LUNGS: Breath sounds equal, clear to auscultation bilaterally. No wheezes, and no crackles. No accessory muscle use. HEART: Regular rate and rhythm, normal S1 and S2 without murmur, rub or gallop. ABDOMEN: Soft, nontender, not distended, normoactive bowel sounds, no guarding, no rebound, no masses. No hepatomegaly or splenomegaly. MUSCULOSKELETAL: Normal range of motion at all joints. No bony deformities or tenderness. No CVA tenderness. UPPER EXTREMITIES: 2+ pulses, warm, well-perfused. No cyanosis. No clubbing. Cap refill <2 seconds. No peripheral edema. LOWER EXTREMITIES: 2+ pulses, warm, well-perfused. No calf tenderness. No peripheral edema. RIGHT LOWER EXTREMITY: Hemovacdrain 40 mL of serosanguineous drainage, scd/randall, less than 3 second capillary refill, +3 pedal pulse NEUROLOGICAL: Cranial nerves II-XII intact. Normal speech. Normal gait. PSYCHIATRIC: Cooperative. Good eye contact. Appropriate mood and affect. SKIN: Warm, dry, normal turgor, no rashes or lesions noted. Active Medications Generic Name Dose Route Start Last Admin Trade Name Talq PRN Reason Stop Dose Admin Acetaminophen 650 mg 05/10/18 17:00 05/11/18 04:38 Tylenol - PO 05/13/18 16:59 650 mg Q6H ERICK Administration Al Hydroxide/Mg Hydroxide 30 ml 05/10/18 16:20 Mylanta Oral Suspension - PO Q4H PRN DYSPEPSIA Aspirin 81 mg 05/10/18 22:00 05/10/18 21:24 Asa - PO 81 mg BID ERICK Administration Celecoxib 200 mg 05/11/18 10:00 Celebrex - PO DAILY [facility] Fentanyl 50 mcg 05/10/18 16:52 Sublimaze Injection - IVPUSH [id number] PRN PAIN-PACU ORDER X 4 DOSES ONLY Lisinopril 20 mg 05/11/18 10:00 Prinivil PO DAILY [facility] Magnesium Hydroxide 30 ml 05/10/18 16:20 Milk Of Magnesia - PO PRN PRN CONSTIPATION Ondansetron HCl 4 mg 05/10/18 16:52 Zofran Injection IVPUSH Q6H PRN NAUSEA AND/OR VOMITING Oxycodone HCl 5 mg 05/10/18 16:52 05/11/18 02:27 Roxicodone - PO 5 mg Q3H PRN Administration PAIN LEVEL 1-5 Oxycodone HCl 10 mg 05/10/18 16:52 Roxicodone - PO Q3H PRN PAIN LEVEL 6-10 Pantoprazole Sodium 40 mg 05/11/18 10:00 Protonix - PO DAILY [facility] Promethazine HCl 12.5 mg 05/10/18 16:52 Phenergan Injection - IVPUSH Q6H PRN NAUSEA-FOR RESCUE AFTER 15 MIN Senna/Docusate Sodium 1 tablet 05/10/18 22:00 05/10/18 21:24 Pericolace - PO 1 tablet BID ERICK Administration ASSESSMENT/PLAN: 1) MS s/p right total knee replacement - monitor drainage of hemovac, repeat hgb 12.7, close monitoring - prn pain medication - phyical therapy as per the orthopedist 2) cardiovascular hypertension - continue lisiniopril (home medication), b/p at goal Dispo: We will continue to follow the patient. Thank you for this consultative opportunity. Visit type - Emergency Visit Emergency Visit: No - New Patient This patient is new to me today: Yes Date on this admission: 05/11/18 - Critical Care Critical Care patient: No
[2018-05-11 07:48] LABS: HEMATOCRIT 39.6 % (32.4-45.2); HEMOGLOBIN 12.7 GM/dl (10.7-15.3); MCH 28.9 pg (25.7-33.7); MCHC 32.1 g/dl (32.0-36.0); MEAN PLT VOLUME 9.4 fl (7.5-11.1); PLATELET COUNT 221 K/MM3 (134-434); RDW 15.4 % (11.6-15.6); WHITE BLOOD COUNT 9.6 K/mm3 (4.0-10.8)
[2018-05-11 08:01] LABS: ANION GAP 8 MMOL/L (8-16); BLOOD UREA NITROGEN 13 mg/dl (7-18); CALCIUM 9.2 mg/dl (8.4-10.2); CHLORIDE 101 mmol/L (98-107); CO2 29 mmol/L (22-28); CREATININE 0.7 mg/dl (0.6-1.3); GLUCOSE,RANDOM 129 mg/dl (74-106); POTASSIUM 4.2 mmol/L (3.5-5.1); SODIUM 138 mmol/L (136-145)
--- NOTE | 2018-05-11 08:44 | OP ---
DATE OF OPERATION: 05/10/2018 SURGEON: Dajuan Medrano MD BEAUTY SHOP MANAGER: Diego Medrano MD, MANUEL Calvin PREOPERATIVE DIAGNOSIS: Fixed flexed valgus tricompartmental osteoarthritis right knee severe disease. POSTOPERATIVE DIAGNOSIS: Fixed flexed valgus tricompartmental osteoarthritis right knee severe disease. OPERATION PERFORMED: Right posterior stabilized cemented total knee arthroplasty ([place]). ANESTHESIA: Conscious sedation with spinal epidural as well as adductor canal block. ANTIBIOTICS GIVEN: Kefzol 2 g, vancomycin 1 g preoperative. Kefzol 1 g given at the end of the procedure. OPERATION IN DETAIL: The patient was correctly identified and brought in the operating room. Imaging was invaluable for intraoperative evaluation. Time- out was called. The left lower extremity was prepped, free draped in the routine manner with Betadine scrub solution, wiped with alcohol, and DuraPrep applied. Midline incision utilized. The quadriceps tendon was incised longitudinally, and medial parapatellar incision utilized skirting around the knee to expose the patella. The patella was severely diseased and deformed. The knee was flexed. The patellar cut was made from patellar ligament to quadriceps tendon. Once this had been performed, the tibial cut was made using the [employer] extramedullary jig system to cut the tibia in neutral. This was a liberal cut because of the eric of the tibial plateau on the left side. Lateral meniscus was completely destroyed due to wear , and the medial meniscus was intact. The medial collateral ligament was stretched out and lax. Using the [employer] femoral jig system and patella jig system, the cuts were made to receive a size 4 Triathlon posterior stabilized femoral component, the universal baseplate measured size 3, and the trialing revealed a polyethylene of 3 x 11, the TS poly appropriately used, the patella measurement was for a size 27-mm patellar button. All bony cuts were made with the jig systems. The flexion and extension gaps were even at 11 cm. Once we were satisfied with the alignment as well as the kinematics, the entire knee was lavaged thoroughly to get rid of all extraneous material and cementing was done in one stage with the cement pumped into the bone bed, that is femoral, tibial, and patella appropriately. All extraneous cement was removed. The best trialing that we could achieve was with a size 11. At that point then, a 1/8-inch Hemovac drain was inserted, and the tissues were closed as follows: The quadriceps tendon with 1 Vicryl, subcutaneous 1 and 2-0 Vicryl, skin 3-0 Monocryl and Steri-Strips. Drainage, a 1/8-inch Hemovac x1. Overall comment, pretty severely affected knee with severe deformity and disease. This has been replaced with a total knee arthroplasty accordingly. Plan is to do the other knee as soon as possible. No other orders. MD BE Pavon/[id number] MTDD
[2018-05-11] MEDS: LISINOPRIL 20 MG TABLET (FP) PO SCH (09:41)
[2018-05-11] MEDS: PANTOPRAZOLE 40 MG TABLET (FP) PO SCH (09:41)
[2018-05-11] MEDS: SENNOSIDES/DOCUSATE COMBO (SENNA PLUS) TABLET (UD) PO SCH ×2 (09:42→22:59)
[2018-05-11] MEDS: ASPIRIN 81 MG CHEWABLE TABLETS PO SCH ×2 (09:42→22:59)
[2018-05-11] MEDS: CELECOXIB 200 MG CAPSULE PO SCH (09:42)
--- NOTE | 2018-05-11 11:15 | PN ---
Progress Note (short form) - Note Progress Note: 78F POD1 s/p right knee arthroplasty under spinal anesthetic with peripheral nerve blocks for post operative pain relief. Pt states that pain is well controlled and reports no anesthetic complications. AVSS. Motor and sensory function stable in bilateral lower extremities. Continue current regimen.
[2018-05-12] MEDS: ACETAMINOPHEN 325 MG TABLET (FP) PO SCH ×2 (04:00→11:51)
[2018-05-12 06:00] VITALS: PULSE 78
[2018-05-12 08:13] LABS: HEMATOCRIT 33.9 % (32.4-45.2); HEMOGLOBIN 11.3 GM/dl (10.7-15.3); MCHC 33.3 g/dl (32.0-36.0); MEAN CELL VOLUME 90.1 fl (80-96); MEAN PLT VOLUME 9.5 fl (7.5-11.1); PLATELET COUNT 173 K/MM3 (134-434); RBC 3.77 M/mm3 (3.60-5.2); RDW 15.3 % (11.6-15.6)
[2018-05-12 10:08] VITALS: BP 115/44; TEMP 98.2
[2018-05-12] MEDS: CELECOXIB 200 MG CAPSULE PO SCH (10:08)
[2018-05-12] MEDS: ASPIRIN 81 MG CHEWABLE TABLETS PO SCH (10:08)
[2018-05-12] MEDS: PANTOPRAZOLE 40 MG TABLET (FP) PO SCH (10:08)
[2018-05-12] MEDS: SENNOSIDES/DOCUSATE COMBO (SENNA PLUS) TABLET (UD) PO SCH (10:08)
[2018-05-12] MEDS: LISINOPRIL 20 MG TABLET (FP) PO SCH (10:10)
--- NOTE | 2018-05-12 11:34 | DS ---
Physical Exam: SUBJECTIVE: POD #2 Right total knee replacement Patient seen and examined at bedside with no complaints. Patient states her pain is controlled and she is tolerating her regular diet. She denies any CP, SOB. N/V/D, fever of chills. She has been OOB and ambulating with PT. OBJECTIVE: Vital Signs Temperature 98.2 F 05/12/18 10:04 Pulse Rate 78 05/12/18 10:04 Respiratory Rate 17 05/12/18 10:04 Blood Pressure 115/44 L 05/12/18 10:04 O2 Sat by Pulse Oximetry (%) 94 L 05/11/18 21:00 PHYSICAL EXAM GENERAL: The patient is awake, alert, and fully oriented, in no acute distress. HEAD: Normal with no signs of trauma. EYES: sclera anicteric, conjunctiva clear. NECK: Trachea midline, supple. LUNGS: NO audible no wheezes, and no accessory muscle use. EXTREMITIES: Right LE, Knee with mild effusion appropriate to status. (Drain has been removed) ROM form 0-75 degrees, Dressing c/d/i with surrounding tissue intact with no tracking erythema or active d/c. B/L LE compartments soft, supple and non-tender with 2+ pulses, warm, well-perfused, NEUROLOGICAL: Cranial nerves II through XII grossly intact. Normal speech, gait not observed. PSYCH: Normal mood, normal affect. SKIN: Warm, dry, normal turgor, no rashes or lesions noted. LABS CBC,CMP WBC 7.0 K/mm3 (4.0-10.8) 05/12/18 07:15 RBC 3.77 M/mm3 (3.60-5.2) 05/12/18 07:15 Hgb 11.3 GM/dl (10.7-15.3) 05/12/18 07:15 Hct 33.9 % (32.4-45.2) 05/12/18 07:15 MCV 90.1 fl (80-96) 05/12/18 07:15 MCH 30.0 pg (25.7-33.7) 05/12/18 07:15 MCHC 33.3 g/dl (32.0-36.0) 05/12/18 07:15 RDW 15.3 % (11.6-15.6) 05/12/18 07:15 Plt Count 173 K/MM3 (134-434) 05/12/18 07:15 MPV 9.5 fl (7.5-11.1) 05/12/18 07:15 Sodium 138 mmol/L (136-145) 05/11/18 07:30 Potassium 4.2 mmol/L (3.5-5.1) 05/11/18 07:30 Chloride 101 mmol/L (98-107) 05/11/18 07:30 Carbon Dioxide 29 mmol/L (22-28) H 05/11/18 07:30 Anion Gap 8 MMOL/L (8-16) 05/11/18 07:30 BUN 13 mg/dl (7-18) 05/11/18 07:30 Creatinine 0.7 mg/dl (0.6-1.3) 05/11/18 07:30 Creat Clearance w eGFR > 60 (>60) 05/11/18 07:30 Random Glucose 129 mg/dl (74-106) H 05/11/18 07:30 Calcium 9.2 mg/dl (8.4-10.2) 05/11/18 07:30 HOSPITAL COURSE: Date of Admission:05/10/18 The patient was admitted to the Med-Surg Unit after an elective repair of their Right knee arthritis. Now, s/p Right Total knee arthroplasty. An xray was obtained immediately post op and confirmed hardware placement at the right knee in good position with no fractures or abnormalities. The day of surgery, the patient ambulated the hallways with assistance. Narcotic and non-narcotic pain management control was achieved with an oral and IV approach. POD #2, the surgical drain was removed fully intact and without incident. Michelle-operative IV ABX were administered. DVT prophylaxis was achieved with SCDs , Asprin and early ambulation. The patient ambulated with Physical Therapy and rehab was recommended. Narcotic scripts were checked with [facility] prior to escibe. The discharge instructions and an oral pain management plan were reviewed with the patient. All questions answered. Date of Discharge: 05/12/18 Minutes to complete discharge: 25 Visit type - Case Type Case Type: Scheduled - Emergency Emergency Visit: No - New patient This patient is new to me today: Yes Date on this admission: 05/12/18
--- NOTE | 2018-05-12 18:41 | PATH ---
Surgical Pathology Report Patient Name: TOMER ALARCON Med. Rec. #: [id number] /Age/Gender: 1940 (Age: 78) / F Account: [id number] Location: [facility] Taken: 05/10/2018 Received: 05/10/2018 Reported: 05/12/2018 Physicians: Daujan Medrano M.D. Specimen(s) Received BONE RIGHT KNEE Clinical History Right knee osteoarthritis Final Diagnosis BONE, RIGHT KNEE, RESECTION: DEGENERATIVE JOINT DISEASE, RIGHT KNEE. Electronically Signed Cira Rogel M.D. Gross Description Received in formalin, labeled "right total knee replacement" are multiple portions of cartilage-capped bone, ranging from 4.6-7.5 cm in greatest dimension with an aggregate of 11.5 x 10 x 2 cm. The articular surfaces appear granular and shows areas of eburnation. Daycare Director sections are submitted in one cassette following decalcification. ebram/05/11/2018
== END 2018-05-12 13:03 | DRG 470 ==
LOC: FM/S 05-10 11:24
PROVIDERS: ADMIT Orthopaedic Surgery Orthopaedic Surgery of the Spine; ATTEND Orthopaedic Surgery Orthopaedic Surgery of the Spine
PROC: 0SRC0J9 Replacement of Right Knee Joint with Synthetic Substitute, Cemented, Open Approach (ICD-10-PCS; principal; 2018-05-10 15:02)
DX: M17.11 Unilateral primary osteoarthritis, right knee (principal); I10 Essential (primary) hypertension; E78.5 Hyperlipidemia, unspecified
CPT/HCPCS: 36415; 73560-TC-RT-FY; 80048; 85027; 88304-TC; 88311-TC; 94760; 97116-GP; 97162-GP

== ENCOUNTER 2018-07-26 08:51 | Inpatient (IN) | payer OTHER ==
[2018-07-21 10:00] VITALS: BMI 22.8
[2018-07-26] MEDS ORDERED: CEFAZOLIN 1 GM/D5W 1 GRAM/50 ML BAG IVPB ONE (10:00)
[2018-07-26] MEDS ORDERED: VANCOMYCIN 750 MG in DEXTROSE 5%-WATER - 250 ML IVPB ONE (10:00)
[2018-07-26] MEDS ORDERED: BUPIVACAINE LIPOSOME/PF (EXPAREL) 266 MG/20 ML VIAL ONE (10:23)
[2018-07-26] MEDS ORDERED: MIDAZOLAM HCL 2 MG/2 ML SINGLE DOSE VIAL ONE (10:23)
[2018-07-26] MEDS ORDERED: BUPIVACAINE HCL/PF (5 MG/ML) 30 ML VIAL IJ ONE (10:23)
[2018-07-26] MEDS ORDERED: DEXAMETHASONE SOD PHOSPHATE 4 MG/1 ML VIAL ONE (11:35)
[2018-07-26] MEDS ORDERED: TRANEXAMIC ACID 1000 MG/10 ML VIAL ONE (11:35)
[2018-07-26] MEDS ORDERED: ceFAZolin SODIUM 1 GM VIAL ONE (11:35)
[2018-07-26] MEDS ORDERED: ONDANSETRON 4 MG/2 ML VIAL ONE (11:35)
[2018-07-26] MEDS ORDERED: PROPOFOL 20 ML ONE ×2 (11:47)
[2018-07-26] MEDS ORDERED: BENZOIN/ALOE VERA/STORAX/TOLU 58 ML BOTTLE ONE (13:58)
[2018-07-26] MEDS ORDERED: MAG HYDROX/AL HYDROX/SIMETH 30 ML UNIT-DOSE CUP PO PRN (14:20)
[2018-07-26] MEDS ORDERED: MAGNESIUM HYDROX 2400MG/30ML ORAL SUSPENSION 30 ML CUP PO PRN (14:20)
[2018-07-26] MEDS ORDERED: ONDANSETRON 4 MG/2 ML VIAL IVPUSH PRN ×2 (14:20→14:33)
--- NOTE | 2018-07-26 14:20 | OP ---
Operative Note - Note: Operative Date: 07/26/18 Pre-Operative Diagnosis: Left knee osteoarthritis, degenerative joint disease Operation: Left total knee replacement Findings: as dictated Implants: as dictated Post-Operative Diagnosis: Same as Pre-op Surgeon: Dajuan Medrano Reiki Practitioner: Laith Cardenas Anesthesiologist/LATHE SCALPER OPERATOR: Yonatan Wolff Anesthesia: Spinal, Local (Block: selective tibial, saphenous ) Specimens Removed: bone cuts Estimated Blood Loss (mls): 20 Drains & Tubes with Location: Intra-articular Hemovac. Tourniquet 113mins at 400mmHg Fluid Volume Replaced (mls): 1,300 (lr) Operative Report Dictated: Yes
--- NOTE | 2018-07-26 14:27 | CONSULT ---
Consultation: REQUESTING PROVIDER: Dr. Dajuan Medrano CONSULT REQUEST: We have been asked to medically follow this patient during the post-operative period. HISTORY OF PRESENT ILLNESS: 78 year-old female with a PMH significant for HTN, HLD, polycystic kidney disease, constipation, hemorrhoids, benign positional vertigo, s/p posterior lumbar interbody fusion (2018), right total knee arthroplasty (2018), and left knee OA now s/p total left knee replacement earlier today with Dr. Medrano. REVIEW OF SYSTEMS: CONSTITUTIONAL: Absent: fever, chills, diaphoresis, generalized weakness, malaise, loss of appetite, weight change HEENT: Absent: rhinorrhea, nasal congestion, throat pain, throat swelling, difficulty swallowing, mouth swelling, ear pain, eye pain, visual changes CARDIOVASCULAR: Absent: chest pain, syncope, palpitations, irregular heart rate, lightheadedness , peripheral edema RESPIRATORY: Absent: cough, shortness of breath, dyspnea with exertion, orthopnea, wheezing, stridor, hemoptysis GASTROINTESTINAL: Absent: abdominal pain, abdominal distension, nausea, vomiting, diarrhea, constipation, melena, hematochezia GENITOURINARY: Absent: dysuria, frequency, urgency, hesitancy, hematuria, flank pain, genital pain MUSCULOSKELETAL: Absent: myalgia, arthralgia, joint swelling, back pain, neck pain SKIN: Absent: rash, itching, pallor HEMATOLOGIC/IMMUNOLOGIC: Absent: easy bleeding, easy bruising, lymphadenopathy, frequent infections ENDOCRINE: Absent: unexplained weight gain, unexplained weight loss, heat intolerance, cold intolerance NEUROLOGIC: Absent: headache, focal weakness or paresthesias, dizziness, unsteady gait, seizure, mental status changes, bladder or bowel incontinence PSYCHIATRIC: Absent: anxiety, depression, suicidal or homicidal ideation, hallucinations. PHYSICAL EXAMINATION Vital Signs - 24 hr 07/26/18 09:26 Temperature 98.2 F Pulse Rate 86 Respiratory 18 Rate Blood Pressure 159/90 GENERAL: Awake, alert, and fully oriented, in no acute distress. HEAD: Normal with no signs of trauma. EYES: Pupils equal, round and reactive to light, sclera anicteric, conjunctiva clear. No lid lag. EARS, NOSE, THROAT: Ears normal, nares patent, oropharynx clear without exudates. Moist mucous membranes. LUNGS: Breath sounds equal, clear to auscultation bilaterally. No wheezes, and no crackles. No accessory muscle use. HEART: Regular rate and rhythm, normal S1 and S2 + murmur ABDOMEN: Soft, nontender, not distended UPPER EXTREMITIES: 2+ pulses, warm, well-perfused. No cyanosis. No clubbing. Cap refill <2 seconds. No peripheral edema. LOWER EXTREMITIES: Surgical compression bandages, SCDs, TEDs in place, c/d/i; + flex/extension toes NEUROLOGICAL: Cranial nerves II-XII intact. Normal speech. Active Medications Generic Name Dose Route Start Last Admin Trade Name Freq PRN Reason Stop Dose Admin Al Hydroxide/Mg Hydroxide 30 ml 07/26/18 14:20 Mylanta Oral Suspension - PO Q4H PRN DYSPEPSIA Aspirin 81 mg 07/26/18 22:00 Ecotrin - PO BID ERICK Cefazolin Sodium 50 mls @ 100 mls/hr 07/26/18 18:30 Ancef 1 Gm Premixed Ivpb - IVPB 07/27/18 02:29 Q8H-IV ERICK Lactated Ringer's 1,000 mls @ 100 mls/hr 07/26/18 14:30 Lactated Ringers Solution IV 07/27/18 06:00 ASDIR ERICK Lisinopril 20 mg 07/27/18 10:00 Prinivil PO DAILY ERICK Magnesium Hydroxide 30 ml 07/26/18 14:20 Milk Of Magnesia - PO PRN PRN CONSTIPATION Multivitamins/Minerals/Vitamin C 1 tab 07/27/18 10:00 Tab-A-Vit - PO DAILY ERICK Non-Formulary Medication 1 each 07/27/18 10:00 Calcium Phosphate Trib/Vit D3 [Calcium + Vitamin D3 Gummies] PO DAILY ERICK Non-Formulary Medication 40 mg 07/26/18 22:00 Pravastatin Sodium PO HS ERICK Non-Formulary Medication 1 each 07/27/18 10:00 Vitamin B Complex [B Complex] PO DAILY ERICK Ondansetron HCl 4 mg 07/26/18 14:20 Zofran Injection IVPUSH Q6H PRN NAUSEA Pantoprazole Sodium 40 mg 07/27/18 10:00 Protonix - PO DAILY ERICK Senna/Docusate Sodium tablet 07/26/18 22:00 Pericolace - PO BID [facility] ASSESSMENT/PLAN: 78 year-old female with a PMH significant for HTN, HLD, polycystic kidney disease, constipation, hemorrhoids, benign positional vertigo, s/p posterior lumbar interbody fusion (2018), right total knee arthroplasty (2018), and left knee OA now s/p total left knee replacement earlier today with Dr. Medrano. s/p Total left knee replacement --POD #0 --pain management per surgery --perioperative antibiotics --follow Hemovac output, daily h/h --bowel regimen --incentive spirometry --ASA 81mg BID x 6 weeks Hypertension --BP stable --continue lisinopril Hyperlipidemia --continue Lipitor Polycystic kidney disease --stable (few cysts per EMR) --baseline Cr 0.7 Chronic constipation --bowel regimen Hemorrhoids --stable Benign positional vertigo --stable FEN Fluids: LR @ 100mL/hr Electrolytes: replete as indicated Nutrition: clears DVT prophylaxis: ASA, SCDs, TEDs, oob, ambulation Physical therapy Dispo: We will continue to follow the patient. Thank you for this consultative opportunity. Visit type - Emergency Visit Emergency Visit: No - New Patient This patient is new to me today: Yes Date on this admission: 07/26/18 - Critical Care Critical Care patient: No
[2018-07-26] MEDS ORDERED: LACTATED RINGERS SOLUTION 1,000 ML IV SCH (14:30)
[2018-07-26] MEDS ORDERED: PROMETHAZINE HCL 25 MG/1 ML VIAL IVPUSH PRN (14:33)
[2018-07-26] MEDS ORDERED: oxyCODONE HCL 5 MG TABLET PO PRN ×2 (14:33)
[2018-07-26] MEDS: ACETAMINOPHEN 325 MG TABLET (FP) PO SCH ×3 (14:59→21:37)
[2018-07-26] MEDS: CEFAZOLIN 1 GM/D5W 1 GM/50 ML BAG IVPB SCH (20:37)
[2018-07-26] MEDS: oxyCODONE HCL 10 MG SUSTAINED ACTING TABLET PO SCH (21:36)
[2018-07-26] MEDS: ASPIRIN COATED 81 MG TABLET.EC PO SCH (21:37)
[2018-07-26] MEDS: ATORVASTATIN CA 10 MG TABLET (FP) PO SCH (21:37)
[2018-07-26] MEDS: SENNOSIDES/DOCUSATE COMBO (SENNA PLUS) TABLET (UD) PO SCH (21:37)
[2018-07-26] MEDS ORDERED: PATIENT'S OWN MEDICATION (NON-FORMULARY) (Pravastatin Sodium 40 MG) PO SCH (22:00)
[2018-07-27] MEDS: CEFAZOLIN 1 GM/D5W 1 GM/50 ML BAG IVPB SCH (03:27)
[2018-07-27] MEDS: ACETAMINOPHEN 325 MG TABLET (FP) PO SCH ×4 (03:27→21:42)
--- NOTE | 2018-07-27 08:03 | PN ---
Physical Exam: SUBJECTIVE: Patient seen and examined OBJECTIVE: Vital Signs Period Temp Pulse Resp BP Sys/Mayer Pulse Ox Last 24 Hr 98.2 F-99.6 F 60-88 14-19 126-159/59-90 96-100 GENERAL: Awake, alert, and fully oriented, in no acute distress. HEAD: Normal with no signs of trauma. EYES: Pupils equal, round and reactive to light, sclera anicteric, conjunctiva clear. No lid lag. EARS, NOSE, THROAT: Ears normal, nares patent, oropharynx clear without exudates. Moist mucous membranes. LUNGS: Breath sounds equal, clear to auscultation bilaterally. No wheezes, and no crackles. No accessory muscle use. HEART: Regular rate and rhythm, normal S1 and S2 + murmur ABDOMEN: Soft, nontender, not distended UPPER EXTREMITIES: 2+ pulses, warm, well-perfused. No cyanosis. No clubbing. Cap refill <2 seconds. No peripheral edema. LOWER EXTREMITIES: Surgical compression bandages, SCDs, TEDs in place, c/d/i; + flex/extension toes NEUROLOGICAL: Cranial nerves II-XII intact. Normal speech. Active Medications Generic Name Dose Route Start Last Admin Trade Name Freq PRN Reason Stop Dose Admin Acetaminophen 650 mg 07/26/18 14:45 07/27/18 03:27 Tylenol - PO 07/29/18 14:44 650 mg Q6H ERICK Administration Al Hydroxide/Mg Hydroxide 30 ml 07/26/18 14:20 Mylanta Oral Suspension - PO Q4H PRN DYSPEPSIA Aspirin 81 mg 07/26/18 22:00 07/26/18 21:37 Ecotrin - PO 81 mg BID ERICK Administration Atorvastatin Calcium 10 mg 07/26/18 22:00 07/26/18 21:37 Lipitor - PO 10 mg HS ERICK Administration Calcium Carbonate/Cholecalciferol 1 tab 07/27/18 10:00 Os-Jc 500+D - PO DAILY ERICK Lisinopril 20 mg 07/27/18 10:00 Prinivil PO DAILY ERICK Magnesium Hydroxide 30 ml 07/26/18 14:20 Milk Of Magnesia - PO PRN PRN CONSTIPATION Multivitamins 1 each 07/27/18 10:00 Total B With C - PO DAILY ERICK Multivitamins/Minerals/Vitamin C 1 tab 07/27/18 10:00 Tab-A-Vit - PO DAILY ERICK Ondansetron HCl 4 mg 07/26/18 14:20 Zofran Injection IVPUSH Q6H PRN NAUSEA Ondansetron HCl 4 mg 07/26/18 14:33 Zofran Injection IVPUSH Q6H PRN NAUSEA AND/OR VOMITING Oxycodone HCl 5 mg 07/26/18 14:33 07/27/18 05:59 Roxicodone - PO 5 mg Q3H PRN Administration PAIN LEVEL 1-5 Oxycodone HCl 10 mg 07/26/18 14:33 Roxicodone - PO Q3H PRN PAIN LEVEL 6-10 Oxycodone HCl 10 mg 07/26/18 22:00 07/26/18 21:36 Oxycontin - PO 07/29/18 14:33 10 mg BID ERICK Administration Pantoprazole Sodium 40 mg 07/27/18 10:00 Protonix - PO DAILY ERICK Promethazine HCl 12.5 mg 07/26/18 14:33 Phenergan Injection - IVPUSH Q6H PRN NAUSEA-FOR RESCUE AFTER 15 MIN Senna/Docusate Sodium 1 tablet 07/26/18 22:00 07/26/18 21:37 Pericolace - PO 1 tablet BID ERICK Administration ASSESSMENT/PLAN: 78 year-old female with a PMH significant for HTN, HLD, polycystic kidney disease, constipation, hemorrhoids, benign positional vertigo, s/p posterior lumbar interbody fusion (2018), right total knee arthroplasty (2018), and left knee OA now s/p total left knee replacement earlier today with Dr. Medrano. s/p Total left knee replacement --POD #1 --pain management per surgery --perioperative antibiotics --Hemovac 80cc's output; Hgb stable --bowel regimen --incentive spirometry --ASA 81mg BID x 6 weeks Hypertension --BP stable --continue lisinopril Hyperlipidemia --continue Lipitor Polycystic kidney disease --stable (few cysts per EMR) --baseline Cr 0.7 Chronic constipation --bowel regimen Hemorrhoids --stable Benign positional vertigo --stable FEN Fluids: PO intake adequate Electrolytes: replete as indicated Nutrition: low sodium DVT prophylaxis: ASA, SCDs, TEDs, oob, ambulation Physical therapy Dispo: We will continue to follow the patient. Thank you for this consultative opportunity. Visit type - Emergency Visit Emergency Visit: Yes ED Registration Date: 07/26/18 Care time: The patient presented to the Emergency Department on the above date and was hospitalized for further evaluation of their emergent condition. - New Patient This patient is new to me today: No - Critical Care Critical Care patient: No
--- NOTE | 2018-07-27 08:08 | PN ---
Progress Note (short form) - Note Progress Note: POD #1 Alert. Sitting in chair at bedside. C/o incisional pain. Adequate pain control with medications ordered. Denies n/v/f/c, CP, palpiations or SOB. Last Vital Signs Temp Pulse Resp BP Pulse Ox 98.4 F 81 18 113/55 L 95 //18 09:39 07/27/18 09:39 07/27/18 09:39 07/27/18 09:39 07/27/18 09:39 CBC, BMP 07/27/18 07:29 07/27/ 07:29 Gen: nad LE: LLE dressing c/d/i. hemovac 80mL. calf soft/supple/nt bilat. leg in extension. Problem List - Problems (1) Left knee DJD Assessment/Plan: POD #1 s/p Left TKR -Pain control. -DVT PPx: -Chemical: ASA 81 mg po BID x 6 weeks -Mechanical: LESLEY's, SCD's -Incentive Spirometry. -PT/OT/Rehab, OOB. -WBAT LLE -Will dc drain AM -f/u am labs. -Care per medical hospitalist team. -Discharge planning: f/u [facility] [place] office photovoltaic installation technician for appointment: Code(s): M17.12 - UNILATERAL PRIMARY OSTEOARTHRITIS, LEFT KNEE
[2018-07-27 08:17] LABS: HEMATOCRIT 34.5 % (32.4-45.2); HEMOGLOBIN 10.9 GM/dl (10.7-15.3); MCH 28.4 pg (25.7-33.7); MCHC 31.7 g/dl (32.0-36.0); MEAN CELL VOLUME 89.8 fl (80-96); MEAN PLT VOLUME 9.3 fl (7.5-11.1); PLATELET COUNT 240 K/MM3 (134-434); RBC 3.85 M/mm3 (3.60-5.2); RDW 14.6 % (11.6-15.6); WHITE BLOOD COUNT 6.5 K/mm3 (4.0-10.8)
[2018-07-27 08:25] LABS: ANION GAP 5 MMOL/L (8-16); BLOOD UREA NITROGEN 13 mg/dl (7-18); CALCIUM 8.9 mg/dl (8.4-10.2); CHLORIDE 101 mmol/L (98-107); CO2 30 mmol/L (22-28); CREATININE 0.6 mg/dl (0.6-1.3); GLUCOSE,RANDOM 110 mg/dl (74-106); MAGNESIUM 1.6 mg/dL (1.8-2.4); POTASSIUM 3.6 mmol/L (3.5-5.1); SODIUM 136 mmol/L (136-145)
[2018-07-27 08:32] LABS: ALBUMIN 3.3 g/dl (3.5-5.0); BILIRUBIN,TOTAL 0.4 mg/dl (0.2-1.0); TOT PROT 6.6 g/dl (6.4-8.3)
[2018-07-27 08:44] LABS: BILIRUBIN,DIRECT 0.1 mg/dL (0.0-0.3)
[2018-07-27] MEDS ORDERED: MAGNESIUM SULF 50% (8.12 MEQ/2 ML-1 GM VIAL) IVPB ONE (08:57)
--- NOTE | 2018-07-27 09:01 | OP ---
DATE OF OPERATION: 07/26/2018 SURGEON: Dajuan Medrano MD SHALE MINER: Laith Cardenas PREOPERATIVE DIAGNOSIS: Tricompartment osteoarthritis of the left knee. POSTOPERATIVE DIAGNOSIS: Tricompartment osteoarthritis of the left knee. OPERATION PERFORMED: Left posterior stabilized total knee arthroplasty ( cemented [place] Triathlon). ANESTHESIA: Spinal with peripheral block and conscious sedation. ANTIBIOTICS GIVEN: 2 g of Kefzol. At the end of the procedure 1 g of Kefzol was given at the time of the release of the tourniquet. OPERATION IN DETAIL: The patient was correctly identified and brought to the operating room where the left lower extremity was prepped free and draped in the routine manner with betadine scrub solution and wiped off with alcohol. DuraPrep applied. Midline incision was utilized. The incision was made through the quadriceps tendon, around the patella, to the medial aspect of the tibial tubercle. Tissues were lifted off of the proximal tibial bone bed. The knee was subluxed forward. I placed a sharp Juan in behind the tibia, levering on the intercondylar notch of the femur. This gave easy access to the knee. Three-quarter resection of the Hoffa fat pad performed. The knee revealed the presence of severe tricompartment osteoarthritis throughout. The patella was cut freehand from the patellar ligament to the quadriceps tendon using Sherwin line. The appropriate jig was applied to cut the tibia, over the patella. The patella to receive a 27-mm patellar button. The tibia was then cut in neutral using the extramedullary jig alignment to receive size 2 universal base plate (Aidee). The appropriate jig cuts and keyhole punch devices were utilized in order to carve the bone to the appropriate receptive tibial plateau features to allow adequate cementing and fixation of the tibial baseplate. The femur was cut with the usual jig system. The jig system was utilized. This was a size 2 femoral component and a Triathlon femoral component trialed in position. A very easy and adequate seating of the implant was noted. The spacer block in both extension and flexion was 9 mm. Cementing after thorough lavage of the bone bed was in one stage from the patella, tibia, and femur. The patella tracking was noted to be completely anatomic, normal, and uncomplicated. Once all extraneous cement had been removed, the definitive 9-mm posterior stabilized polyethylene was inserted. The wounds were closed, as follows: Quadriceps tendon, parapatellar tendon with 1 Vicryl; subcutaneous with 1 and 2-0 Vicryl; skin with 3-0 Monocryl with Steri- Strips. Drainage: One-eighth inch Hemovac x1. Operation was tolerated well. Postoperative x-rays were reviewed and acceptable. Plan for mobilization as soon as possible and as soon as she is comfortable to do so. Dajuan Medrano MD [id number] MTDD
[2018-07-27] MEDS ORDERED: PT OWN MED DRAWER 7, Y5N ONE ×2 (09:18→11:21)
[2018-07-27] MEDS: ASPIRIN COATED 81 MG TABLET.EC PO SCH ×2 (09:39→21:42)
[2018-07-27] MEDS: LISINOPRIL 20 MG TABLET (FP) PO SCH (09:40)
[2018-07-27] MEDS: CALCIUM 500MG/VIT-D 200 UNITS COMBO TABLET (FP) PO SCH (09:40)
[2018-07-27] MEDS: MULTIVITAMINS (DAILY MVI) TABLET (FP) PO SCH (09:40)
[2018-07-27] MEDS: PANTOPRAZOLE 40 MG TABLET (FP) PO SCH (09:40)
[2018-07-27] MEDS: SENNOSIDES/DOCUSATE COMBO (SENNA PLUS) TABLET (UD) PO SCH ×2 (09:41→21:42)
[2018-07-27] MEDS: oxyCODONE HCL 10 MG SUSTAINED ACTING TABLET PO SCH ×2 (09:41→21:43)
[2018-07-27] MEDS ORDERED: VITAMIN B COMPLEX PO SCH (10:00)
[2018-07-27] MEDS ORDERED: CALCIUM PHOSPHATE TRIB PO SCH (10:00)
[2018-07-27] MEDS ORDERED: [UNRECOGNIZED DRUG - OTHER] PO SCH (10:00)
[2018-07-27] MEDS ORDERED: VIT D3 PO SCH (10:00)
[2018-07-27] MEDS ORDERED: LISINOPRIL 20 MG TABLET (FP) PO SCH (10:00)
--- NOTE | 2018-07-27 10:44 | PN ---
Progress Note (short form) - Note Progress Note: Anesthesia postop note POD#1 S/P Left knee arthroplasty under Spinal anesthesia and nerve blocks. Pat seen and examined. Pain controlled. started PT. No apparent post anesthesia complications. Signed off.
[2018-07-27] MEDS: VITAMIN B COMPLEX W/C COMBO TABLET (FP) PO SCH (11:22)
[2018-07-27] MEDS: ATORVASTATIN CA 10 MG TABLET (FP) PO SCH (21:42)
[2018-07-28] MEDS: ACETAMINOPHEN 325 MG TABLET (FP) PO SCH ×2 (06:00→09:35)
[2018-07-28 06:40] VITALS: BP 115/68; PULSE 93; TEMP 99.3
--- NOTE | 2018-07-28 08:11 | DS ---
Physical Exam: SUBJECTIVE: Patient seen and examined OBJECTIVE: Vital Signs Temperature 99.3 F 07/28/18 06:00 Pulse Rate 93 H 07/28/18 06:00 Respiratory Rate 18 07/28/18 06:00 Blood Pressure 115/68 07/28/18 06:00 O2 Sat by Pulse Oximetry (%) 94 L 07/28/18 06:00 PHYSICAL EXAM GENERAL: The patient is awake, alert, and fully oriented, in no acute distress. HEAD: Normal with no signs of trauma. EYES: PERRL, extraocular movements intact, sclera anicteric, conjunctiva clear. NECK: Trachea midline, full range of motion, supple. LUNGS: breathing comfortably, no accessory muscle use. HEART: Regular rate and rhythm, EXTREMITIES: 2+ pulses, warm, well-perfused, no edema. LLE shows clean dressing in place, no weakness or numbness, inicision is clean and dry, drain in place with serosanguinous drainage, removed at bedside. NEUROLOGICAL: Cranial nerves II through XII grossly intact. Normal speech, gait not observed. PSYCH: Normal mood, normal affect. SKIN: Warm, dry, normal turgor, no rashes or lesions noted. LABS CBC,CMP WBC 6.5 K/mm3 (4.0-10.8) 07/27/18 07:29 RBC 3.85 M/mm3 (3.60-5.2) 07/27/18 07:29 Hgb 10.9 GM/dl (10.7-15.3) 07/27/18 07:29 Hct 34.5 % (32.4-45.2) 07/27/18 07:29 MCV 89.8 fl (80-96) 07/27/18 07:29 MCH 28.4 pg (25.7-33.7) 07/27/18 07:29 MCHC 31.7 g/dl (32.0-36.0) L 07/27/18 07:29 RDW 14.6 % (11.6-15.6) 07/27/18 07:29 Plt Count 240 K/MM3 (134-434) 07/27/18 07:29 MPV 9.3 fl (7.5-11.1) 07/27/18 07:29 Sodium 136 mmol/L (136-145) 07/27/18 07:29 Potassium 3.6 mmol/L (3.5-5.1) 07/27/18 07:29 Chloride 101 mmol/L (98-107) 07/27/18 07:29 Carbon Dioxide 30 mmol/L (22-28) H 07/27/18 07:29 Anion Gap 5 MMOL/L (8-16) L 07/27/18 07:29 BUN 13 mg/dl (7-18) 07/27/18 07:29 Creatinine 0.6 mg/dl (0.6-1.3) 07/27/18 07:29 Creat Clearance w eGFR > 60 (>60) 07/27/18 07:29 Random Glucose 110 mg/dl (74-106) H 07/27/18 07:29 Calcium 8.9 mg/dl (8.4-10.2) 07/27/18 07:29 Magnesium 1.6 mg/dL (1.8-2.4) L 07/27/18 07:29 Total Bilirubin 0.4 mg/dl (0.2-1.0) 07/27/18 07:29 Direct Bilirubin 0.1 mg/dL (0.0-0.3) 07/27/18 07:29 AST 20 U/L (10-42) 07/27/18 07:29 ALT 13 U/L (10-40) 07/27/18 07:29 Alkaline Phosphatase 58 U/L (32-92) 07/27/18 07:29 Total Protein 6.6 g/dl (6.4-8.3) 07/27/18 07:29 Albumin 3.3 g/dl (3.5-5.0) L 07/27/18 07:29 HOSPITAL COURSE: The patient was admitted to the Med-Surg Unit after an elective repair of their Left knee arthritics Now, s/p Left total knee replacement. An xray was obtained in the OR and confirmed hardware placement in good position with no fractures or dislocations. The day of surgery, the patient ambulated the hallways with assistance. Narcotic and non-narcotic pain management control was achieved with an oral and IV approach. POD #2, the surgical drain was removed fully intact and without incident. Michelle-operative IV ABX were administered. DVT prophylaxis was achieved with SCDs and early ambulation. The patient ambulated with Physical Therapy and acute rehab was recommended upon discharge. Pt was set up for acute rehab placement. The discharge instructions and an oral pain management plan were reviewed with the patient. All questions answered. Above plan discussed with Dr. Medrano and agreed. Date of Admission:07/26/18 Date of Discharge: 07/28/18 Minutes to complete discharge: 20 Visit type - Case Type Case Type: Scheduled - Emergency Emergency Visit: No - New patient This patient is new to me today: Yes Date on this admission: 07/28/18
[2018-07-28 08:28] LABS: HEMATOCRIT 32.6 % (32.4-45.2); HEMOGLOBIN 10.4 GM/dl (10.7-15.3); MCH 28.8 pg (25.7-33.7); MEAN PLT VOLUME 10.2 fl (7.5-11.1); PLATELET COUNT 221 K/MM3 (134-434); RBC 3.62 M/mm3 (3.60-5.2); RDW 14.5 % (11.6-15.6); WHITE BLOOD COUNT 8.5 K/mm3 (4.0-10.8)
[2018-07-28] MEDS ORDERED: PT OWN MED DRAWER 7, Y5N ONE (09:47)
[2018-07-28] MEDS: LISINOPRIL 20 MG TABLET (FP) PO SCH (10:11)
[2018-07-28] MEDS: SENNOSIDES/DOCUSATE COMBO (SENNA PLUS) TABLET (UD) PO SCH (10:11)
[2018-07-28] MEDS: MULTIVITAMINS (DAILY MVI) TABLET (FP) PO SCH (10:12)
[2018-07-28] MEDS: ASPIRIN COATED 81 MG TABLET.EC PO SCH (10:12)
[2018-07-28] MEDS: VITAMIN B COMPLEX W/C COMBO TABLET (FP) PO SCH (10:12)
[2018-07-28] MEDS: PANTOPRAZOLE 40 MG TABLET (FP) PO SCH (10:13)
[2018-07-28] MEDS: oxyCODONE HCL 10 MG SUSTAINED ACTING TABLET PO SCH (10:13)
[2018-07-28] MEDS: CALCIUM 500MG/VIT-D 200 UNITS COMBO TABLET (FP) PO SCH (10:13)
--- NOTE | 2018-07-28 12:01 | SURG ---
Surgery Vocational Rehabilitation Specialist Note Vocational Rehabilitation Specialist: Laith Cardenas PA-C (Suzy) Date of Service: 07/26/18 Diagnosis: Left total knee replacement Procedure: Left total knee replacement I was present for the entirety of the operative procedure. For further detail, please refer to operative report. Visit type - Case Type Case Type: Scheduled - Emergency Emergency Visit: No - New patient This patient is new to me today: Yes Date on this admission: 07/28/18 - Critical Care Critical Care patient: No
--- NOTE | 2018-07-31 13:31 | PATH ---
Surgical Pathology Report Patient Name: TOMER ALARCON Med. Rec. #: [id number] /Age/Gender: 1940 (Age: 78) / F Account: [id number] Location: [facility] Taken: 07/26/2018 Received: 07/27/2018 Reported: 07/31/2018 Physicians: Dajuan Medrano M.D. Specimen(s) Received BONE LEFT KNEE Clinical History Osteoarthritis left knee Final Diagnosis BONE, LEFT KNEE, TOTAL KNEE REPLACEMENT: DEGENERATIVE JOINT DISEASE. Electronically Signed Aura Salgado M.D. Gross Description Received in formalin labeled "bone left knee," is a 14.0 x 9.5 x 1.8 cm aggregate of multiple portions of bone and soft tissue, consistent with knee bones. There are multiple areas of eburnation present, measuring up to 2.5 cm in greatest dimension. The remaining articular surfaces are talamantes-yellow and diffusely granular. The underlying trabecular bone is yellow and hard. Field Radio Operator sections are submitted in one cassette, following decalcification. 07/28/2018 [facility]07/28/2018
== END 2018-07-28 12:16 | DRG 470 ==
LOC: FM/S 08:51
PROVIDERS: ADMIT Orthopaedic Surgery Orthopaedic Surgery of the Spine; ATTEND Orthopaedic Surgery Orthopaedic Surgery of the Spine
PROC: 0SRD0J9 Replacement of Left Knee Joint with Synthetic Substitute, Cemented, Open Approach (ICD-10-PCS; principal; 2018-07-26 12:11)
DX: M17.12 Unilateral primary osteoarthritis, left knee (principal); Q61.3 Polycystic kidney, unspecified; I10 Essential (primary) hypertension; E78.5 Hyperlipidemia, unspecified; K64.9 Unspecified hemorrhoids; K59.00 Constipation, unspecified; H81.10 Benign paroxysmal vertigo, unspecified ear
CPT/HCPCS: 36415; 73560-TC-LT-FY; 80048; 80076; 83735; 85027; 88304-TC; 88311-TC; 94760; 97116-GP; 97162-GP